=== PATIENT | male | born 1960 | race Caucasian/White ===

== ENCOUNTER 2022-02-06 18:55 | Emergency (ER) | payer OTHER, SELFPAY ==
[2022-02-06 19:12] VITALS: BP 154/101; PULSE 81; RESP 16; TEMP 36.6; O2SAT 98; BMI 27.3
--- NOTE | 2022-02-06 19:51 | CRLHL7_ITS ---
For Patients: As a result of the Cures Act, medical imaging exams and procedure reports are released immediately into your electronic medical record. You may view this report before your referring provider. If you have questions, please contact your health care provider. Indication: Post cortisone shot. Technique: Left ankle, 3 views. Comparison: None. Findings: Bones: Alignment is normal. No fractures or bone lesions. Joint spaces: Unremarkable. Soft tissues: Unremarkable. Impression: No sign of acute injury. Dictated by Dede Rosen MD @ 02/06/2022 8:31:10 PM (Electronically Signed)
--- NOTE | 2022-02-06 20:20 | ED_ITS ---
HPI - General Adult General Time Seen by Provider: 20:20 Date Seen: 02/06/22 Chief complaint: Extremity Pain/Injury, Lower Stated complaint: Post Shot Pain Unable to Use Ankle Time Seen by Provider: 02/06/22 19:36 Source: patient History of Present Illness HPI narrative: Luis M is a 61-year-old male presents emerged department with with left ankle pain. Patient states that he doctors out [place] or his primary care provider, he has had ongoing left ankle pain for about a month no known trauma or injury, he was referred to see Podiatry here in clinic with Regina. One hundred thirty this afternoon he got a Kenalog 10 mg injection in his left ankle for synovitis No complications, patient felt well after this and went to work, around 11/22/2029 this evening he had increased pain to the area of the injection as well as the other side and back of his ankle, pain is 10/10, no surrounding swelling or redness. He is able to move his ankle. Denies any fevers, chills, numbness or tingling of the left foot. He is otherwise doing well. He did not take anything for the pain. Related Data Home Medications Medication Instructions Recorded Confirmed aspirin 81 mg capsule 81 mg PO DAILY 02/06/22 02/06/22 atorvastatin 20 mg tablet mg 02/06/22 omeprazole magnesium PO 02/06/22 Allergies Allergy/AdvReac Type Severity Reaction Status Date / Time Penicillins Allergy Verified 02/06/22 19:16 Review of Systems Status of ROS: Reports: 10 or more systems reviewed and unremarkable except as noted in History and below [facility] Medical History (Updated 02/06/22 @ 21:06 by Ned Garcia MD) GERD (gastroesophageal reflux disease) ANDREW (obstructive sleep apnea) Polycystic kidney disease Tubular adenoma of colon Surgical History (Updated 02/06/22 @ 19:41 by Elly Cedeno RN) H/O nasal septoplasty H/O rotator cuff surgery History of ankle surgery Social History Smoking Status: Never smoker Do you use any of these nicotine containing products: None How often do you have a drink containing alcohol: monthly or less How often do you have six or more drinks on one occasion: Never AUDIT-C Alcohol total score: 1 Non-prescribed substance use: denies use Exam Const: Vital Signs, click to edit/add: Vital Signs - 24 hr 02/06/22 19:12 Temperature 97.9 F Pulse Rate [Left P ulse Oximeter] 81 Respiratory Rate 16 Blood Pressure [Le ft Upper Arm] 154/101 H Pulse Oximetry 98 Common normals: no apparent distress and oriented x3 Eye: Common normals: PERRL, EOMs intact bilaterally and conjunctivae normal Conjunctiva: conjunctiva(e) normal Pupil: PERRL Neck & C-Spine: Common normals: full ROM and supple Resp: Common normals: normal respiratory effort and clear to auscultation bilaterally Auscultation: clear to auscultation bilaterally Cardio: Common normals: S1 normal heart sound and S2 normal heart sound Heart sounds: S1 normal and S2 normal Extremity: Other: Left ankle: injection site, looks clean, no surrounding erythema or warmth, minimal swelling, active dorsal and plantar flexion, tender to palpation the lateral malleolus at the site of injection. CMS intact Neuro: Common normals: oriented x3 Course Course Hospital Course: 8:15 PM: Vitals are stable, for couple include IV peripheral, 15 mg IV Toradol and 4 mg IV morphine for pain, will obtain XR left ankle three views, basic labs CBC, CRP. To reach out to the field traffic investigator that performed the injection. No signs of infection. Differential diagnosis includes but not limited to cellulitis, septic arthritis, abscess, arthritis, synovitis, bursitis, sprain, fracture as well as other etiologies Reevaluation(s) Reevaluation #1: Spoke with Podiatry, recommendations were ice, elevate, anti-inflammatories with NSAIDs over the next few days, comment to have a local reaction to Kenalog. Should get better over time, follow-up as needed with primary care provider over the next 7-10 days. Time: 20:36 Reevaluation #2: Patient was updated on his imaging results, no acute findings, CBC did show leukocytosis, elevated neutrophil percentage and neutrophil number, CRP was nega tive which was reassuring, discussed watching at this time, we will get a short course of Milmay 5-325 mg be taken in addition to his NSAIDs for breakthrough pain, RICE instructions given. Reasons to return were given. Time: 20:59 Vital Signs Vital signs: Initial Vital Signs Temperature 97.9 F 02/06/22 19:12 Temperature Source Temporal Artery Scan 02/06/22 19:12 Pulse Rate 81 07/20/22 19:12 Pulse Rhythm 02/06/22 19:12 Respiratory Rate 16 02/06/22 19:12 Blood Pressure 154/101 H 02/06/22 19:12 Blood Pressure Mean 118 02/06/22 19:12 Blood Pressure Position Sitting 02/06/22 19:12 Pulse Oximetry 98 02/06/22 19:12 Oxygen Delivery Method 02/06/22 19:12 Vital Signs Temperature 97.9 F 02/06/22 19:12 Pulse Rate 81 02/06/22 19:12 Respiratory Rate 16 02/06/22 19:12 Blood Pressure 154/101 H 02/06/22 19:12 Pulse Oximetry 98 02/06/22 19:12 Temperature 97.9 F 02/06/22 19:12 Pulse Rate 81 02/06/22 19:12 Respiratory Rate 16 02/06/22 19:12 Blood Pressure 154/101 H 02/06/22 19:12 Pulse Oximetry 98 02/06/22 19:12 Medical Decision Making Lab Data Labs: Lab Results 02/06/22 02/06/22 Range/Units 20:23 20:23 WBC 12.00 H (4.50-11.00) K/uL RBC 5.53 (4.30-5.90) m/uL Hgb 15.7 (13.5-17.5) gm/dL Hct 44.9 (37.0-53.0) % MCV 81 (80-100) fL MCH 28 (26-34) pg MCHC 35 (32-36) gm/dL RDW Coeff of Macy 13.0 (11.5-15.5) % Plt Count 216 (140-440) K/uL Neut % (Auto) 90.4 H (42.0-72.0) % Lymph % (Auto) 6.3 L (20-44) % [place] % (Auto) 2.8 (0.0-11.0) % Eos % (Auto) 0.3 (0.0-7.0) % Baso % (Auto) 0.1 (0.0-3.0) % Neut # (Auto) 10.80 H (1.7-7.0) K/uL Lymph # (Auto) 0.80 L (0.90-2.90) K/uL [place] # (Auto) 0.30 (0.00-0.90) K/UL Eos # (Auto) 0.00 (0.00-0.50) K/uL Baso # (Auto) 0.00 (0.00-0.30) K/uL Abs Immat Gran (auto) 0.01 (0.00-0.30) K/uL C-Reactive Protein < 0.5 L (0.5-1.0) mg/dL Discharge Plan Discharge Clinical Impression: Ankle pain, left Patient Disposition: Home, Self-Care Condition: Improved Instructions: R.I.C.E. Treatment (ED) Additional Instructions: To take 400 -600 mg of Ibuprofen or Motrin every 4-6 hours short term for pain, ice to the area, 20-30 minutes three times daily, elevated if swelling. To follow up with your primary care provider in the next 3-5 days if needed, return if worsening symptoms. Activity Level: Activity as Tolerated Prescriptions: No Action atorvastatin 20 mg tablet 0RF aspirin 81 mg capsule 81 mg PO DAILY 0RF omeprazole magnesium [Acid Entry Level Accountant (omeprazole)] PO 0RF Follow Up/Referrals: Johnnie López MD [Primary Care Provider] - Stand Alone Forms: [employer] Info Instructions
[2022-02-06 20:31] LABS: Basophils Percent Auto 0.1 % (0.0-3.0); Eosinophils Percent Auto 0.3 % (0.0-7.0); Hematocrit 44.9 % (37.0-53.0); Hemoglobin* 15.7 gm/dL (13.5-17.5); Immature Granulocytes Abs Auto 0.01 K/uL (0.00-0.30); Lymphocytes Percent Auto 6.3 % (20-44); Mean Corpuscular HGB Conc 35 gm/dL (32-36); Mean Corpuscular Hemoglobin 28 pg (26-34); Mean Corpuscular Volume 81 fL (80-100); Monocytes Percent Auto 2.8 % (0.0-11.0); Neutrophils Percent Auto 90.4 % (42.0-72.0); Platelet Count* 216 K/uL (140-440); Red Blood Count 5.53 m/uL (4.30-5.90)
[2022-02-06 20:32] LABS: Slide Review Reflex No
[2022-02-06] MEDS: MORPHINE 4 MG/ML INJ IVP (20:32)
[2022-02-06] MEDS: KETOROLAC 15 MG/ML inj IVP (20:39)
[2022-02-06 21:10] LABS: C Reactive Protein* < 0.5 mg/dL (0.5-1.0)
[2022-02-06 21:40] VITALS: BP 145/89; PULSE 79; RESP 16; TEMP 36.6; O2SAT 98
== END 2022-02-06 21:41 | disposition home or self-care (01) ==
PROVIDERS: Emergency Provider Student in an Organized Health Care Education/Training Program; PCP Family Medicine
DX: M25.572 Pain in left ankle and joints of left foot (principal); T38.0X5A Adverse effect of glucocorticoids and synthetic analogues, initial encounter
CPT/HCPCS: 36415; 73610; 85025; 86140; 96374; 96375; 99283; 99284; J1885; J2270

== ENCOUNTER 2023-08-28 09:14 | Outpatient (CLI) | payer OTHER, SELFPAY ==
--- NOTE | 2023-08-28 11:06 | W.ANESCHARGE ---
Anesthesia Charges Start Date/Time Anesthesia Start Date: 08/28/23 Anesthesia Start Time: 10:24 Stop Date/Time Anesthesia Stop Date: 08/28/23 Anesthesia Stop Time: 11:02
== END 2023-08-28 09:15 | disposition home or self-care (01) ==
PROVIDERS: PCP Nurse Practitioner Family; Visit Provider Surgery
DX: Z12.11 Encounter for screening for malignant neoplasm of colon (principal); K63.5 Polyp of colon; K57.30 Diverticulosis of large intestine without perforation or abscess without bleeding; K64.9 Unspecified hemorrhoids; K44.9 Diaphragmatic hernia without obstruction or gangrene; K31.7 Polyp of stomach and duodenum; R19.8 Other specified symptoms and signs involving the digestive system and abdomen
CPT/HCPCS: 00813; 43239; 45380; 45385; 88305; J2704; J3490

== ENCOUNTER 2024-03-05 09:06 | Outpatient (CLI) | payer OTHER, SELFPAY ==
--- OUTSIDE RECORDS SUMMARY | 2024-03-05 09:08 | XMS_ITS | Encounter Summary ---
Author Organization [facility] er Address [address] [place] [address] Care Team Providers Care Airplane Rental Clerk Name Role Phone Dante Howe MD Primary Care Provider [phone] Reason for Visit * Reason Comments Med Refill Encounter Details Date Type Department Care Team (Late st Contact Info) Description 04/28/2019 Refill [place] [address] [place] [address] Tabitha López MD [address] [facility] [address] [place] [address] Gastroesophageal reflux disease, esophagitis presence not specified Social History Tobacco Use Types Packs/Day Years Used Date Smoking Tobacco: Never Smokeless Tobacco: Former Alcohol Use Standard Drinks/Week Comments Yes 5 (1 standard drink = 0.6 oz pur e alcohol) PHQ-2 Answer Date Recorded PHQ-2 Score 0 11/18/2018 Sex and Gender Information Value Date Recorded Sex Assigned at Not on file Gender Identity Not on file Sexual Orientation Not on file documented as of this encounter Miscellaneous Notes * Telephone Encounter - Reina Spence MA - 04/30/2019 11:13 AM CDT Requested Prescriptions Pending Prescriptions Disp Refills ??? omeprazole (PriLOSEC) [address] capsule [Pharmacy Med Name: OMEPRAZOLE 20MG CPDR] 90 capsule 3 Sig: TAKE ONE CAPSULE BY MOUTH EVERY DAY Date/Time Signed: 04/26/2019 13:18 E-Prescribing Status: Receipt confirmed by pharmacy (04/26/2019 ??1:18 PM CDT) documented in this encounter Plan of Treatment Not on file documented as of this encounter Visit Diagnoses Diagnosis Gastroesophageal reflux disease, esophagitis presence not specified documented in this encounter Care Teams Airplane Rental Clerk Relationship Specialty Start Date End Date Dante Howe MD [address] [place] [address] PCP - General 05/08/23 documented as of this encounter
--- OUTSIDE RECORDS SUMMARY | 2024-03-05 09:08 | XMS_ITS | Encounter Summary ---
Author Organization [facility] er Address [address] [place] [address] Care Team Providers Care Smooth Plater Name Role Phone Dante Howe MD Primary Care Provider [phone] Reason for Visit * Reason Comments Med Refill Encounter Details Date Type Department Care Team (Late st Contact Info) Description 12/22/2023 Refill [place] [address] [place] [address] Dante Howe MD [address] [facility] [address] [place] [address] Gastroesophageal reflux disease without esophagitis Social History Tobacco Use Types Packs/Day Years Used Date Smoking Tobacco: Never Smokeless Tobacco: Former Alcohol Use Standard Drinks/Week Comments Yes 5 (1 standard drink = 0.6 oz pur e alcohol) PHQ-2 Answer Date Recorded PHQ-9 Total Score 0 01/23/2023 Sex and Gender Information Value Date Recorded Sex Assigned at Not on file Gender Identity Not on file Sexual Orientation Not on file documented as of this encounter Miscellaneous Notes * Telephone Encounter - Radha Vela - 12/24/2023 8:45 AM CDT LMTCB to schedule annual. Prior Dr. López pt; informed of Dr. Howe or Raisa. * Telephone Encounter - Yenni Villalobos RN - 12/23/2023 7:07 PM CDT Patient is due for (Annual) appointment. PSR: Please contact patient to assist with scheduling. Upcoming appointment with provider: Visit date not found Last visit in provider department: 01/23/2023 Last visit requested medication was discussed: 01/30/2022 other provider Last Rx: Requested Prescriptions Pending Prescriptions Disp Refills omeprazole (PriLOSEC) [address] capsule [Pharmacy Med Name: OMEPRAZOLE 20MG CPDR] 90 capsule 0 Sig: TAKE ONE CAPSULE BY MOUTH EVERY DAY, DO NOT CRUSH OR CHEW` Labs: Vitals: BP Readings from Last 2 Encounters: 01/23/23 (!) 143/92 06/10/22 136/86 Last Controlled Substance Agreement (CSA): Last Random Urine Drug Screen (RUDS): documented in this encounter Plan of Treatment Not on file documented as of this encounter Visit Diagnoses Diagnosis Gastroesophageal reflux disease without esophagitis Esophageal reflux documented in this encounter Care Teams Smooth Plater Relationship Specialty Start Date End Date Dante Howe MD [address] [facility] [address] [place] [address] PCP - General 05/08/23 documented as of this encounter
--- OUTSIDE RECORDS SUMMARY | 2024-03-05 09:08 | XMS_ITS | Clinical Summary ---
Author Organization [facility] er Address [address] [place] [address] Care Team Providers Care Winemaker Name Role Phone Dante Howe MD Primary Care Provider [phone] Allergies Active Allergy Reactions Criticality Noted Date Comments Penicillin G Medications Medication Sig Dispensed Refills Start Date End Date Status sildenafil (VIAGRA) 50 MG tablet Take 1 tablet (50 mg total) by mouth if needed 12/02/2018 Active aspirin 81 MG EC tablet Take 1 tablet (81 mg total) by mouth 1 (one) time each day Active tamsulosin (FLOMAX) 0.4 MG 24 hr capsuleIndications:B enign prostatic hyperplasia with urinary frequency Take 1 capsule (0.4 mg total) by mouth 1 (one) time each day 90 capsule 1 08/08/2020 Active Additional Information Patient not taking.Reported on 06/10/2022 atorvastatin (LIPITOR) 20 MG tabletIndications:Donald rderline hyperlipidemia TAKE ONE TABLET BY MOUTH EVERY DAY 90 tablet 3 03/14/2023 Active omeprazole (PriLOSEC) [address] capsuleIndications:G astroesophageal reflux disease without esophagitis TAKE ONE CAPSULE BY MOUTH EVERY DAY, DO NOT CRUSH OR CHEW` 90 capsule 12/24/2023 Active Active Problems Problem Noted Date Diagnosed Date Gastroesophageal reflux disease without esophagi tis 08/27/2021 Mixed hyperlipidemia 08/27/2021 Benign prostatic hyperplasia with urinary freque ncy 08/27/2021 Other male erectile dysfunction 08/27/2021 Decreased hearing of both ears 08/27/2021 Family history of ischemic h eart disease and other diseases of the circulatory system 05/06/2017 Encounters Date Type Department Care Team Description 12/22/2023 Refill [facility] [address] [address] Dante Howe MD Gastroesophageal reflux disease without esophagitis from Last 3 Months Immunizations Name Administration Dates Next Due Flu Vaccine High Dose 65yrs and Older IM 017,04/25/2014 Influenza (IM) Preservative Free 06/22/2013,05/22 Influenza 6mo-64yrs Quad Preservative Free IM ,04/13/2014 Influenza Split 05/20/2017,04/25/2014 Influenza, Unspecified 05/20/2017,04/25/2014 Td 03/21/2000 Tdap 01/30/2022,04/12/2011 Family History Medical History Relation Comments Stroke Father Parkinsonism Mother Relation Status Comments Brother 1 Alive Brother 2 Alive Brother 3 Alive Daughter 1 Alive Daughter 2 Alive Daughter 3 Alive Father Alive Mother Alive Sister 1 Alive Sister 2 Alive Sister 3 Alive Social History Tobacco Use Types Packs/Day Years Used Date Smoking Tobacco: Never Smokeless Tobacco: Former Alcohol Use Standard Drinks/Week Comments Yes 5 (1 standard drink = 0.6 oz pur e alcohol) PHQ-2 Answer Date Recorded PHQ-9 Total Score 0 01/23/2023 Sex and Gender Information Value Date Recorded Sex Assigned at Not on file Gender Identity Not on file Sexual Orientation Not on file Last Filed Vital Signs Vital Sign Reading Time Taken Comments Blood Pressure 143/92 01/23/2023 3:54 PM CDT Pulse 63 01/23/2023 3:54 PM CDT Temperature 36.6 ??C (97.9 ??F) 01/23/2023 3:54 PM CD T Respiratory Rate 16 01/23/2023 3:54 PM CDT Oxygen Saturation 96% 01/23/2023 3:54 PM CDT Inhaled Oxygen Concentration - - Weight 88.2 kg (194 lb 8 oz) 01/23/2023 3:54 PM CDT Height 178.5 cm (5' 10.28) 12/13/2020 11:31 AM CDT boots on Body Mass Index 27.69 12/13/2020 11:31 AM CDT Plan of Treatment Health Maintenance Due Date Last Done Comments CT Colonography 1962 FIT-DNA 1962 Sigmoidoscopy 1962 iFOBT 1962 Zoster Vaccines (1 of 2) 2012 COVID-19 Vaccine (1 - 24 season) 2023 Influenza Vaccine (#1) 2024 7, 05/20/2017, 05/20/2017, Additional history exists Colonoscopy 07/03/2024 07/03/2019 Colorectal Cancer Screening 07/03/2024 DTaP,Tdap,and Td Vaccines (3 - Td or Tdap) 01/31/2032 01/30/2022, 04/12/2011, 03/21/2000 HPV Vaccines Aged Out No longer eligi ble based on patient's age to complete this topic Pneumococcal Vaccine: Pediatrics (0 to 5 Years) and At-Risk Patients (6 to 64 Years) Aged Out No longer eligible based on patient's age to complete this topic Care Teams Winemaker Relationship Specialty Start Date End Date Dante Howe MD [address] [place] [address] PCP - General 05/08/23
--- OUTSIDE RECORDS SUMMARY | 2024-03-05 09:08 | XMS_ITS | Encounter Summary ---
Author Organization [facility] er Address [address] [place] [address] Care Team Providers Care Family Preservation Caseworker Name Role Phone Dante Howe MD Primary Care Provider [phone] Reason for Visit * Reason Comments Med Refill Encounter Details Date Type Department Care Team (Late st Contact Info) Description 03/10/2023 Refill [place] [address] [place] [address] Tabitha López MD [address] [place] [address] Borderline hyperlipidemia Social History Tobacco Use Types Packs/Day Years [...] encounter Miscellaneous Notes * Telephone Encounter - Donna Keller - 03/14/2023 9:28 AM CDT Patient is not wanting to have this removed at this time as it seems to be smaller. He will call back in a few weeks if anything changes and he wants to remove it. * Telephone Encounter - Sandra Burr RN - 03/14/2023 8:45 AM CDT LMTC. * Telephone Encounter - Reina Spence MA - 03/14/2023 6:58 AM CDT Patient is due for (annual) appointment. PSR: Please contact patient to assist with scheduling. Upcoming appointment with provider: Visit date not found Last visit in provider department: 06/10/2022 Last visit requested medication was discussed: 01/30/2022 Last Rx: 01/30/2022 # 90 tablet, 3 refill Requested Prescriptions Pending Prescriptions Disp Refills atorvastatin (LIPITOR) 20 MG tablet [Pharmacy Med Name: ATORVASTATIN CALCIUM 20MG TABS] 90 tablet 3 Sig: TAKE ONE TABLET BY MOUTH EVERY DAY Labs:07/07/2019 Lipid Vitals: BP Readings from Last 2 Encounters: 01/23/23 (!) 143/92 06/10/22 136/86 Last Controlled Substance Agreement (CSA): Last Random Urine Drug Screen (RUDS): documented in this encounter Plan of Treatment Not on file documented as of this encounter Visit Diagnoses Diagnosis Borderline hyperlipidemia documented in this encounter Care Teams Family Preservation Caseworker Relationship Specialty Start Date End Date Dante Howe MD [address] [place] [address] PCP - General 05/08/23 documented as of this encounter
--- OUTSIDE RECORDS SUMMARY | 2024-03-05 09:08 | XMS_ITS | Clinical Summary ---
Author Organization [facility] Address [place], [place] [address] Care Team Providers Care Enlisted Advisor Name Role Phone Chelsea Hdz NP Primary Care Provider Angelica vailable Allergies Active Allergy Reactions Criticality Noted Date Comments Penicillins *Unknown - Childhood Rxn 06/18/2011 Medications Medication Sig Dispensed Refills Start Date End Date Status atorvastatin (LIPITOR) 20 mg tablet Take 1 tablet by mouth once daily. 10/20/2018 Active omeprazole (PRILOSEC) 20 mg Delayed-Release capsule Take 1 Cap by mouth once daily before a meal. 03/30/2018 Active tamsulosin (FLOMAX) 0.4 mg capsule Take 1 capsule by mouth once daily after a meal. 0 12/02/2018 Active sildenafil citrate (VIAGRA) 50 mg tablet Take 1 tablet by mouth once daily if needed for Erectile Dysfunction. Take 30min to 4 hours before sexual activity. Max 100mg/24hr 0 12/02/2018 Active aspirin (ECOTRIN) 81 mg enteric coated tablet Take 81 mg by mouth. Active Social History Tobacco Use Types Packs/Day Years Used Date Smoking Tobacco: Never Smokeless Tobacco: Former Quit: 06/18/2008 Tobacco Cessation:Counseling Given: Yes Alcohol Use Standard Drinks/Week Comments Not Asked 0 (1 standard drink = 0.6 oz pur e alcohol) Sex and Gender Information Value Date Recorded Sex Assigned at Not on file Gender Identity Not on file Sexual Orientation Not on file Obstetrics History Last Filed Vital Signs Vital Sign Reading Time Taken Comments Blood Pressure 151/92 02/06/2022 12:59 PM CDT Pulse 69 02/06/2022 12:59 PM CDT Temperature 36.6 ??C (97.9 ??F) 05/12/2019 9:41 AM CD T Respiratory Rate 18 09/24/2011 3:00 PM GLUING MACHINE OPERATOR Oxygen Saturation 94% 02/06/2022 12:59 PM CDT Inhaled Oxygen Concentration - - Weight 84.6 kg (186 lb 6.4 oz) 02/06/2022 12:59 PM CDT Height - - Body Mass Index - - Plan of Treatment Health Maintenance Due Date Last Done Comments Tdap 1973 Depression screening for age 12+ 1974 HIV for age 15-65 1977 BMI (ht and wt on same day) for age 18+ 1980 Hepatitis C screening for ag e 18-79 1980 Tetanus booster 1982 Colonoscopy through age 75 2007 Lipids for age 45-75 2007 Zoster (shingles) series for age 50+ (1 of 2) 2012 COVID-19 vaccine series (2022-24 season) 2023 Influenza for age 50-64 03/21/2024 Pneumococcal series for age 6-64 Aged Out No longer eligible based on patient's age to complete this topic Care Teams Enlisted Advisor Relationship Specialty Start Date End Date Chelsea Hdz NP [address] [place] [address] PCP - General Emergency Medicine 03/31/19
--- NOTE | 2024-03-05 09:15 | MR_ITS ---
[address] [address] Phone:?[phone] Fax:?[phone] Referring Physician Information: Jorge Mcgraw M.D. [id number] [facility] [address] Phone:?[phone] Fax:?[phone] Patient:?Luis M Nagel D.O.B:?1960 Sex:?Male Phone:?[phone] [facility] MRN:?[id number] Exam Date:?03/05/2024 EXAM: MRI OF THE LEFT KNEE CLINICAL INFORMATION: The patient is a 63-year-old with left knee pain. Evaluate medial compartment osteoarthritis. Evaluate for medial meniscal tear. PRIOR SURGERY: None reported. COMPARISON STUDIES: Comparison is made to the prior MRI examination dated 05/16/2016. TECHNICAL INFORMATION: Imaging was performed on a high-field, 1.5 Rosalva MR scanner. Coronal proton-density and coronal STIR imaging of the left knee was performed in addition to sagittal proton-density and fat-suppressed proton- density imaging. Axial proton-density and fat-suppressed T2 imaging was produced. FINDINGS: Articular/Extraarticular collections: Effusion: Moderate. Popliteal cyst: Minimal. Loose bodies: No well-defined intra-articular loose bodies are present. Subcutaneous and extraarticular soft tissues: Within normal limits. Osseous structures: There are broad-based areas of cortical irregularity and subcortical edema along the central and medial articular surfaces of the medial femoral condyle and medial tibial plateau seen on coronal series 8 image 20 and on sagittal series 5 images 7 and 8. The findings are most in keeping with reactive bony changes related to the meniscal tearing and chondral thinning discussed below. Mild elements of contusion or stress change may also be present. No other bony abnormalities about the knee are seen. Ligamentous structures: ACL: Intact and normal in appearance. PCL: Intact and normal in appearance. MCL: Intact and normal in appearance. LCL: Intact and normal in appearance. Posterolateral corner: Intact and normal in appearance. Posteromedial corner: No posteromedial corner soft tissue injury. Semimembranosus and pes anserine tendons demonstrate no tendinopathy or associated bursitis. Extensor mechanism/Patellar retinacular structures: Patellar tendon: Intact, without tendinopathy. Quadriceps tendon: Intact, without tendinopathy. Retinacula: The medial and lateral retinacula are intact. The medial patellofemoral ligament is intact. Medial compartment: Medial meniscus: The medial meniscus is abnormal in appearance. There is apical free edge and inferior surface tearing of the posterior horn of the medial meniscus with horizontal tearing extending to the meniscal attachment, noted to best advantage on sagittal series 6 image 9. The area of medial meniscal tearing measures approximately 22 mm in mediolateral dimension. Additional degeneration and fraying of the middle one third of the medial meniscus is noted. The anterior horn of the medial meniscus appears intact. No parameniscal cyst formation is identified. Medial femoral condyle: Grade III chondromalacia can be seen along the central, medial, and anterior weightbearing surfaces of the medial femoral condyle on coronal series 7 image 20 and on sagittal series 6 image 10. The area of chondromalacia and chondral loss measures 23 mm in anteroposterior dimension and 20 mm in mediolateral dimension. Underlying bony changes are seen. Medial tibial plateau: Full-thickness and near full-thickness chondral loss can be seen along the central and anterior weightbearing surfaces of the medial tibial plateau on sagittal series 6 image 11 and on coronal series 7 image 15. The chondral loss measures 23 mm in anteroposterior dimension and 24 mm in mediolateral dimension. Underlying bony changes are present. Lateral compartment: Lateral meniscus: No evidence for lateral meniscal tearing is present. No evidence for parameniscal cyst formation can be seen. Lateral femoral condyle: No chondromalacia, chondral defect, or osteochondral abnormality. Lateral tibial plateau: No chondromalacia, chondral defect, or osteochondral abnormality. Patellofemoral compartment: Patella: Grade II chondromalacia can be seen involving the patellar apex and adjacent portions of the medial and lateral patellar facets on axial series 4 image 12, measuring 13 mm in greatest dimension. No full-thickness patellar chondral defects are seen. Trochlea: No chondromalacia, chondral defect, or osteochondral abnormality. Neurovascular: No definite neurovascular abnormalities are seen. CONCLUSION: 1. Tearing and degeneration of the medial meniscus as described above. No lateral meniscal tearing is seen. 2. Chondromalacia and chondral loss involving the medial joint compartment and patella as described above. 3. The cruciate and collateral ligaments appear intact. 4. Reactive edema versus mild contusion or stress changes involving the medial femoral condyle and medial tibial plateau. 5. Moderate knee joint effusion and minimal popliteal cyst. AEC Electronically signed on 03/05/2024 1:52:00 PM by Kaushal Hadley M.D.
== END 2024-03-05 09:07 | disposition home or self-care (01) ==
LOC: MRI 09:07
PROVIDERS: PCP Nurse Practitioner Family; Visit Provider Orthopaedic Surgery
DX: M25.562 Pain in left knee (principal); S83.242A Other tear of medial meniscus, current injury, left knee, initial encounter; M22.42 Chondromalacia patellae, left knee; M25.462 Effusion, left knee; M71.22 Synovial cyst of popliteal space [Baker], left knee; G89.29 Other chronic pain
CPT/HCPCS: 73721

== ENCOUNTER 2024-08-06 08:19 | Outpatient (CLI) | payer OTHER, SELFPAY | END 2024-08-06 08:20 | disposition home or self-care (01) | PROVIDERS: PCP Nurse Practitioner Family; Visit Provider Nurse Practitioner Family | DX: I10 Essential (primary) hypertension (principal); E78.5 Hyperlipidemia, unspecified; Z13.0 Encounter for screening for diseases of the blood and blood-forming organs and certain disorders involving the immune mechanism; Z12.5 Encounter for screening for malignant neoplasm of prostate | CPT/HCPCS: 80053; 80061; 85025; G0103 ==

== ENCOUNTER 2024-09-16 08:22 | Outpatient (RCR) | payer OTHER, SELFPAY ==
--- NOTE | 2024-09-16 09:28 | PT.OPEX ---
[facility] [place] Outpatient Eval [facility] Outpatient Eval Start: 09/15/24 13:41 Freq: Status: Active Protocol: Document 09/16/24 07:15 HLA (Rec: 09/16/24 09:23 HLA [id number]) E-signed By Fabiola Morrison, PT, DPT Physical Therapy Outpatient Evaluation Insurance Information Recert Due Date 12/14/24 Insurance Name [employer] Medical Diagnosis L TKA Treating Diagnosis weakness, impaired ROM, stiffness L knee Referring MD Mcgraw Subjective Preferred Name luis m Subjective Reports pain L knee limits amb , poor sleep at night. Ready for TKA. 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 stairs step to pattern for stability balance screen intact Sensation/Reflexes intact to light touch Assessment Assessment/Impression Luis M is a 64 year old male, ind amb, drives, owns a [employer]. Enjoys pickle ball, previously did basketball, rides horse and rides bike. Has been limited due to pain. Pt is now undergoing a L TKA and is here for preop teaching. Pt lives in in a q1 level home, 2 steps no railing. L knee strength is good, some varus, AROM 5-105 flex with prepatella edema present. Pt was instructed in TKA ex program (quad sets, ham sets, ankle pumps, heel slides, SAQ, SLR, seated knee flex/ext and hamstring stretches) per protocol to be practiced pre- operatively and for improved learning post-operatively. Pt was instructed in hospital post-op progression in PT, safety, fall prevention. Pt was instructed in positioning in chair, use of ice/polar care, bed, transfer safety, gt safety with walker, stairs, car transfers and outpatient therapy progression. Primary Functional Limitations weakness, pain L knee, impaired ROM, impaired amb Plan of Care Rehabilitation Potential Excellent Physical Therapy Goals 1. Within this session: Pt will verbalize understanding of pre-op/post-op safety, mobility and exercises with home program issued and pt returning for ongoing therapy after TKA replacement. Coordination/Communication With Referral Source,Patient Caregiver Treatment Plan/Direct Interventions Gait Training,Manual Therapy, Neuromuscular Re-ed, Therapeutic Exercises Patient Will Be Discharged From Therapy Completion of LTG(s),Skills Plateau,Independent w/HEP, Independently Progressing Evaluation Billing Untimed Code Treatment Minutes 12 PT Eval No Charge No Complexity Low Certification Information Initial Certification Date 09/16/24 Ending Certification Date 12/14/24 Provider Signature Required Yes Provider Signature Shows Agreement With POC & Medical Necessity Physician NPI Number Write NPI# Here Physician Comment/Change : Physician Signature & Date Requested Please Sign/Date Here
== END 2024-09-16 11:05 | disposition home or self-care (01) ==
PROVIDERS: PCP Nurse Practitioner Family; Visit Provider Orthopaedic Surgery
DX: M17.12 Unilateral primary osteoarthritis, left knee (principal); Z96.652 Presence of left artificial knee joint; R53.1 Weakness; M25.662 Stiffness of left knee, not elsewhere classified; Z51.89 Encounter for other specified aftercare
CPT/HCPCS: 97110; 97161

== ENCOUNTER 2024-09-29 13:27 | Inpatient (IN) | payer OTHER, SELFPAY ==
[2024-09-28] VITALS (24 sets, daily range): BP systolic 71–144; BP diastolic 59–95; PULSE 49–87; RESP 12–18; TEMP 17.2–36.6; O2SAT 94–99; BMI 29.3
[2024-09-28] MEDS: LACTATED RINGERS 1000 ML 1,000 ML 100 ML IV (10:10)
[2024-09-28] MEDS: SODIUM CHLORIDE 0.9 % (FLUSH) 10 ML SYRINGE IVF (10:10)
[2024-09-28] MEDS: ACETAMINOPHEN 500 MG TABLET 1000 MG PO ×2 (10:15→19:08)
[2024-09-28] MEDS: OXYCODONE (CR) 10 MG TAB.ER.12H PO (10:15)
[2024-09-28] MEDS: MIDAZOLAM HCL 1 MG/ML inj IVP (10:53)
[2024-09-28] MEDS: fentaNYL 100 MCG/2 ML inj IVP (10:53)
--- NOTE | 2024-09-28 10:53 | SUR.PREOP ---
TIME?OUT:?1052 PT/RN/MDA?VERIFICATION?OF?SURGICAL?SITE,?PROCEDURE,?AND?CONSENT OBTAINED?PRIOR?TO?INVASIVE?PROCEDURE.
--- NOTE | 2024-09-28 10:56 | SUR.OPER ---
PATIENT QUESTIONS ANSWERED SATISFACTORILY PREOPERATIVELY.? PATIENT BROUGHT TO OR #3 PER CART AFTER ADMINISTRATION OF A BLOCK.? Patient positioned supine on OR #3 bed.? The perioperative?team supported arms bilaterally on arm boards.? Final approval of positioning by surgeon.?
[2024-09-28] MEDS: TRANEXAMIC ACID 100 MG/ML INJ 1000 MG IV (11:15)
[2024-09-28] MEDS: CEFAZOLIN 2 GM INJ IVP (11:15)
--- NOTE | 2024-09-28 11:55 | W.ANESCHARGE ---
Anesthesia Charges Start Date/Time Anesthesia Start Date: 09/28/24 Anesthesia Start Time: 11:06 Stop Date/Time Anesthesia Stop Date: 09/28/24 Anesthesia Stop Time: 13:25 Coding CPT Codes CPT Codes: ANESTH KNEE ARTHROPLASTY - 59496 ([id number]) P2 - PATIENT W/MILD SYST DISEASE, QK - MERCHANDISE PRESENTATION MANAGER 2-4 CNCRNT ANES PROC, QX - MUSIC THERAPY TEACHER SVC W/ MD MED DIRECTION
--- NOTE | 2024-09-28 11:56 | W.PM.NB ---
Nerve Block Nerve Block Time Seen by Provider: 10:53 Date Seen: 09/28/24 Type of block requested by surgeon for post-operative analgesia: adductor canal Side: left Time out performed: Yes Verification of patient name: Yes Verification of date of : Yes Site marking: site marked Name of person performing procedure: Dixon Continuous monitoring Was continuous monitoring of O2 sat, B/P, cardiac specialist, recorded every 15 minutes?: Yes Procedure Checklist: sterile prep, needles and gloves Ultrasound guided. Images saved: Yes Medications given in 5ml increments after negative aspiration: Marcaine %: 0.25 mL: 15 Needle gauge: 20 Precedex (mcg): 25 Patient tolerated procedure well: Yes Block Charges Block Charge (with Pro Fee): Femoral Nerve Use of Ultrasound Machine for Block: Yes- US Guidance/pain block
--- NOTE | 2024-09-28 11:56 | W.PM.NB ---
Nerve Block Nerve Block Time Seen by Provider: 10:53 Date Seen: 09/28/24 Type of block requested by surgeon for post-operative analgesia: geniculars Side: left Time out performed: Yes Verification of patient name: Yes Verification of date of : Yes Site marking: site marked Name of person performing procedure: Dixon Continuous monitoring Was continuous monitoring of O2 sat, B/P, monitor worker, recorded every 15 minutes?: Yes Procedure Checklist: sterile prep, needles and gloves Ultrasound guided. Images saved: Yes Medications given in 5ml increments after negative aspiration: Marcaine %: 0.25 mL: 9 Needle gauge: 25 Patient tolerated procedure well: Yes Block Charges Block Charge (with Pro Fee): Genicular Nerve Block
--- NOTE | 2024-09-28 12:38 | CRLHL7_ITS ---
For Patients: As a result of the Cures Act, medical imaging exams and procedure reports are released immediately into your electronic medical record. You may view this report before your referring provider. If you have questions, please contact your health care provider. Indication: Postop Technique: Two views left knee Findings/Impression: Hardware from a left total knee arthroplasty is in satisfactory position. Bone alignment is normal. No sign of acute fracture. Postop changes are within normal limits. Dictated by Kev Valencia MD @ 09/29/2024 9:25:58 AM (Electronically Signed)
--- NOTE | 2024-09-28 12:47 | PM.ORPRC ---
Procedure Note Date of procedure: 09/28/24 Procedure: PREOPERATIVE DIAGNOSIS: Left knee osteoarthritis POSTOPERATIVE DIAGNOSIS: Left knee osteoarthritis NAME OF OPERATION: Left total knee arthroplasty SURGEON: Jorge Mcgraw MD OPERATIONAL ASSISTANT: Marisol Ruiz PA-C ANESTHESIA: Spinal ESTIMATED BLOOD LOSS: 0 mL COMPLICATIONS: None SPECIMENS: None DRAINS: None PREOPERATIVE ANTIBIOTICS: Ancef 2 grams IMPLANTS: 1. J&J Attune # 8 posterior stabilized femur 2. # 8 fixed-bearing tibia 3. # 8 posterior stabilized, 5 mm fixed-bearing polyethylene 4. 41 patella INDICATIONS: The patient is a 64-year-old with a longstanding history of severe, unrelenting left knee pain secondary to end-stage (grade IV) left knee osteoarthritis. Despite appropriate nonoperative management, including activity modification, anti-inflammatories, [id number] pain medication, bracing, physical therapy, and injections they continue to have pain and disability. Operative intervention was offered. The risks, benefits and expected outcomes were discussed in detail. These included but were not limited to: Infection, bleeding, injury to blood vessel or nerve, venous thromboembolism. All questions were answered to their satisfaction. Use of an seed analysis laboratory assistant was necessary throughout the case for patient positioning and safety, soft tissue retraction, and closure. PROCEDURE: Spinal anesthesia was administered. The patient was placed supine on the operating table. The seed analysis laboratory assistant made sure the patient was positioned appropriately. The lower extremity was prepped and draped in the usual sterile fashion. The limb was exsanguinated with the Marcus bandage. The pneumatic tourniquet was inflated to 300 mmHg. A standard anterior incision was made with the knee in flexion. Subcutaneous dissection was sharply taken through fascial layer #1. Full-thickness medial and lateral flaps were elevated. The seed analysis laboratory assistant retracted the soft tissues and protected them throughout the case. A standard subvastus approach was made. The patella was subluxed. The infrapatellar fat pad was preserved. The menisci and cruciate ligaments were sharply d?brided. Marginal osteophytes were d?brided with the rongeur. The drill was used to penetrate the femoral canal. The canal was aspirated and irrigated with pulse lavage. The intramedullary femoral guide was placed for a 5-degree valgus cut, removing 10 mm off the distal femur. The saw was used to make the cut. Whitesides line and the trans epicondylar axis were marked. The femoral sizing guide was pinned onto the distal femur. Three degrees of external rotation nicely parallels the transepicondylar axis. Pins were placed for posterior referencing. The four-in-one cutting guide was pinned onto the distal femur. The anterior, posterior, and chamfer cuts were made. The seed analysis laboratory assistant protected the collateral ligaments. The box cutting guide was pinned. The box cuts were made. The boxed trial was placed and was an excellent fit. Drill holes for the lugs were made. Attention was then turned to the proximal tibia. The extramedullary tibial guide was placed for a neutral varus/valgus cut with 5 degrees of posterior slope, removing 2 mm based off the medial tibial surface. The seed analysis laboratory assistant protected the collateral ligaments and the neurovascular bundle. The saw was used to make the cut. Trial components were placed. The knee was nicely balanced in both flexion and extension. The trial components were removed. The tray was placed in appropriate rotation, parallel to our tibial cutting pins. It was pinned by the seed analysis laboratory assistant and the drill and the punch were used. The tray was removed. The punch was used again. We placed a bone plug in the femoral canal. Attention was then turned to the patella. Habematolel patellar thickness was 26 mm. The lobster claw resection guide was used with the 9.5 mm jennifer. The saw was used to make the cut. Drill holes were made by the seed analysis laboratory assistant. The trial was placed and was an excellent fit. Cancellous surfaces were irrigated with pulse lavage and thoroughly dried by the seed analysis laboratory assistant. We cemented the tibial component, then the femoral component. We impacted the 5 mm polyethylene onto the tibial tray. The knee was brought into full extension. We then cemented the patellar component. Excessive cement was removed. The cement was allowed to harden. The knee was taken through a range of motion and was found to be nicely balanced in both flexion and extension. The patella tracks centrally. The seed analysis laboratory assistant did a three minute dilute Betadine solution soak. The seed analysis laboratory assistant irrigated the wound with 3 liters of normal saline via pulse lavage. The seed analysis laboratory assistant reapproximated the extensor mechanism with #1 Vicryl in an interrupted [id number] fashion. The seed analysis laboratory assistant then ran the extensor mechanism with a #1 PDO Stratafix. The seed analysis laboratory assistant closed the subcutaneous tissues with a 3-0 Stratafix and the skin with a running 3-0 Stratafix in a subcuticular fashion. Glue was used to seal the skin. The seed analysis laboratory assistant placed a dry dressing. Sponge and needle counts were correct x2. The patient tolerated the procedure well. There were no apparent complications. They were carefully transferred to the hospital bed and taken to the postanesthesia care unit in satisfactory condition. PLAN: The patient will be mobilized with physical therapy. Aspirin will be used for DVT prophylaxis. They will be discharged to home once medically appropriate.
--- NOTE | 2024-09-28 13:23 | W.ANESCHARGE ---
Anesthesia Charges Start Date/Time Anesthesia Start Date: 09/28/24 Anesthesia Start Time: 11:06 Stop Date/Time Anesthesia Stop Date: 09/28/24 Anesthesia Stop Time: 13:25 Coding CPT Codes CPT Codes: ANESTH KNEE ARTHROPLASTY - 24278 ([id number]) P2 - PATIENT W/MILD SYST DISEASE, QK - BEHAVIORAL HEALTH DIRECTOR 2-4 CNCRNT ANES PROC, QX - FILTER WASHER SVC W/ MD MED DIRECTION
[2024-09-28] MEDS: LACTATED RINGERS 1000 ML 1,000 ML 200 ML IV (13:43)
[2024-09-28] MEDS: HYDROmorphone 0.5 mg/0.5 ml inj IVP ×2 (14:42→17:12)
--- NOTE | 2024-09-28 15:31 | PM.IMCN1 ---
Date of Consult Patient: [facility] Patient Consult date: 09/28/24 Requesting Physician: Orthopedics Primary Care Provider: Chelsea Hdz APRN, TROY Consult Narrative Reason for consult: Medical management Narrative: Luis M Nagel is a 64 year old male past medical history significant for osteoarthritis, hypertension, hyperlipidemia, hiatal hernia, allergic rhinitis, GERD, polycystic kidney disease, ANDREW is POD#0 s/p left total knee arthroplasty, Dr. Mcgraw. There have been no perioperative complications or nursing concerns reported. Mild soft pressures, improving postoperatively. Estimated total blood loss documented as 0 ml. Updated and reviewed the active medical problems, past medical history, past surgical history, social history, allergies and medications in our electronic EMR. Postoperatively, patient reports minimal discomfort. More so the uneasy feeling of his leg being numb. Had a mild headache earlier which resolved. Denies dizziness. Denies chest pain or shortness of breath. Has tolerated water and ice chips without nausea or vomiting. Appetite is returning. Review of Systems Narrative: REVIEW OF SYSTEMS: Complete review of systems performed and negative unless otherwise stated in HPI or below. PFSH PFSH Medical History Varicella ?B01.9 - Varicella without complication (ICD-10) Surgical History History of tonsillectomy ?Z90.89 - Acquired absence of other organs (ICD-10) History of bunionectomy (05/10/19) ?Z98.890 - Other specified postprocedural states (ICD-10) History of ankle surgery ?Z98.890 - Other specified postprocedural states (ICD-10) H/O rotator cuff surgery (2013) ?Z98.890 - Other specified postprocedural states (ICD-10) H/O nasal septoplasty (07/02/11) ?Z98.890 - Other specified postprocedural states (ICD-10) Family History Father Heart disease Hx of CABG, Onset Age: 50 Stroke Kidney disease Daughter Celiac disease Paternal Grandfather Heart disease Sister Kidney disease Social History (Reviewed 09/28/24 @ 15:33 by DORCAS Barker What is your current living situation?: I presently have a place to live Problems where you live: no known problems In the past 12 months, utilities in danger of being shut off: no In past 12 months, lack of transportation kept you from medical appts, meetings, work, or getting things needed for daily living: no In the past 12 mos, have been you worried that your food would run out before you had money to buy more?: never true In the past 12 mos, the food you bought just didn't last and you didn't have money to buy more?: never true Highest level of school completed/degree received: Associate degree: occupational, technical, vocational program Smoking Status: Never smoker Do you use any of these nicotine containing products: None Second hand tobacco smoke exposure: No How often do you have a drink containing alcohol: 4 or more times a week Alcohol type: beer, wine and hard liquor How many standard drinks containing alcohol do you have on a typical day: 1 or 2 How often do you have six or more drinks on one occasion: Never AUDIT-C Alcohol total score: 4 Non-prescribed substance use: denies use Caffeine: Yes How often does anyone, including family, friends and others, physically hurt you: never How often does anyone, including family, friends and others, insult or talk down to you: never How often does anyone, including family, friends and others, threaten you with harm: never How often does anyone, including family, friends and others, scream or curse at you: never service: No Meds Home Medications and Allergies Home Medications ?Medication ?Instructions ?Recorded ?Confirmed ?Type aspirin 81 mg capsule 81 mg PO DAILY 02/06/22 09/28/24 History atorvastatin 20 mg tablet 20 mg PO HS 09/28/24 09/28/24 History losartan 25 mg tablet (Cozaar) 25 mg PO DAILY 09/28/24 09/28/24 History Allergies Allergy/AdvReac Type Severity Reaction Status Date / Time Penicillins Allergy Verified 09/28/24 10:01 Exam Narrative: Exam Narrative: PHYSICAL EXAM General: Pleasant, conversant, NAD HEENT: Normocephalic, atraumatic, sclera white, EOMI, oral mucosa moist Cardiovascular: RRR, S1S2. No pitting edema Pulmonary: CTA bilaterally without rhonchi, rales, expiratory wheezes. No dyspnea Neurological: Alert, answering questions appropriately, cranial nerves intact, no focal findings Extremities: No gross joint deformity or swelling. Postoperative dressing in place, dry. Neurovascularly intact Skin: Warm, dry. Const: Vital Signs, click to edit/add: Vital Signs - 24 hr 09/28/24 10:35 09/28/24 10:51 09/28/24 10:55 Temperature 97.1 F L Pulse Rate 64 71 71 Respiratory Rate 16 16 16 Blood Pressure 129/91 H 138/84 133/71 Pulse Oximetry 96 94 96 Oxygen Delivery Me thod Room Air Nasal Cannula Nasal Cannula Oxygen Flow Rate 2 3 09/28/24 11:00 09/28/24 13:20 09/28/24 13:25 Temperature 97.0 F L Pulse Rate 62 70 50 L Respiratory Rate 16 14 14 Blood Pressure 117/80 71/59 L 119/83 Pulse Oximetry 96 96 95 Oxygen Delivery Me thod Room Air Room Air Oxygen Flow Rate 09/28/24 13:30 09/28/24 13:35 09/28/24 13:40 Temperature 97.1 F L Pulse Rate 60 64 64 Respiratory Rate 14 12 12 Blood Pressure 106/72 115/79 118/72 Pulse Oximetry 97 96 96 Oxygen Delivery Me thod Room Air Room Air Room Air Oxygen Flow Rate 09/28/24 13:45 09/28/24 13:50 09/28/24 13:55 Temperature 97.1 F L 63 F L Pulse Rate 67 66 Respiratory Rate 14 14 14 Blood Pressure 111/68 118/66 112/77 Pulse Oximetry 95 97 Oxygen Delivery Me thod Room Air Room Air Room Air Oxygen Flow Rate 09/28/24 13:58 09/28/24 14:15 09/28/24 14:23 Temperature 97.2 F L 96.5 F L 96.5 F L Pulse Rate 66 66 66 Respiratory Rate 16 18 18 Blood Pressure 111/88 112/78 112/78 Pulse Oximetry 96 99 99 Oxygen Delivery Me thod Room Air Room Air Room Air Oxygen Flow Rate 3 3 09/28/24 14:30 09/28/24 14:45 09/28/24 15:00 Temperature Pulse Rate 62 64 68 Respiratory Rate 18 18 16 Blood Pressure 111/80 119/70 111/71 Pulse Oximetry 99 98 97 Oxygen Delivery Me thod Room Air Room Air Room Air Oxygen Flow Rate 3 Assessment and Plan Assessment and plan (1) Osteoarthritis of left knee: Problem comment: -POD#0 s/p L TKA, Dr. Mcgraw (DOS 09/28/24) -perioperative management including pain management and anticoagulation per Orthopedic surgery -encourage postoperative pulmonary hygiene -PT OT consults -plan to discharge home with spouse tomorrow Status: Acute (2) Hypertension: Problem comment: Pressures soft intraoperatively, SBP 106 currently Resume losartan tomorrow morning pending ongoing improvement of pressures Status: Acute (3) Hyperlipidemia: Problem comment: Continue atorvastatin Status: Chronic Total Time Spent Total Time Spent: Today I spent 60 minutes seeing the patient, discussing the patient with ER staff, reviewing Expanse and Epic notes/diagnostics, discussing the care plan with our team that includes social work, PT/OT, pharmacy, RT, intermediate and documenting my impressions and plan in the medical record.
[2024-09-28] MEDS: OXYCODONE 5 MG TABLET PO ×4 (16:29→21:53)
[2024-09-28] MEDS: CEFAZOLIN 2 GM in 0.9 % SODIUM CHLORIDE Mini-bag 100 ML IVPB (16:30)
[2024-09-28] MEDS: SENNOSIDES 1 TAB TABLET 2 TAB PO ×2 (21:53→21:57)
[2024-09-28] MEDS: ASPIRIN 81 MG TABLET EC PO (21:57)
--- NOTE | 2024-09-28 23:13 | PC.NURSE ---
Patient up with assist of 1, GB and walker. Dressing to knee is clean dry and intact. Non-pitting edema to right leg. Reporting pain at a 6-10/10 in the left knee. Dilaudid and oxycodone given PRN, see eMAR. Patient complaining of throbbing and 'bridgette horses'. Patient perceived to be anxious about surgery/being in the hospital. Unable to sleep. Order obtained for ativan. Tolerating a regular diet, no nausea.
[2024-09-29] VITALS (12 sets, daily range): BP systolic 108–186; BP diastolic 80–123; PULSE 82–114; RESP 16–24; TEMP 36.4–37.2; O2SAT 95–99
[2024-09-29] MEDS: LORazepam 1 MG TABLET PO (00:39)
[2024-09-29] MEDS: CEFAZOLIN 2 GM in 0.9 % SODIUM CHLORIDE Mini-bag 100 ML IVPB (00:39)
[2024-09-29] MEDS: ACETAMINOPHEN 500 MG TABLET 1000 MG PO ×4 (00:39→19:22)
[2024-09-29] MEDS: OXYCODONE 5 MG TABLET PO ×8 (00:50→23:10)
[2024-09-29 06:35] LABS: Basophils Absolute Auto 0.02 K/uL (0.00-0.30); Basophils Percent Auto 0.2 % (0.0-3.0); Eosinophils Absolute Auto 0.06 K/uL (0.00-0.50); Eosinophils Percent Auto 0.6 % (0.0-7.0); Hematocrit 40.2 % (37.0-53.0); Lymphocytes Percent Auto 10.1 % (20-44); Mean Corpuscular HGB Conc 35 gm/dL (32-36); Mean Corpuscular Hemoglobin 29 pg (26-34); Mean Corpuscular Volume 83 fL (80-100); Monocytes Percent Auto 8.6 % (0.0-11.0); Neutrophils Percent Auto 80.5 % (42.0-72.0); Platelet Count* 182 K/uL (140-440); RDW Coefficient of Variation % 13.1 % (11.5-15.5); Red Blood Count 4.84 m/uL (4.30-5.90); White Blood Count* 9.34 K/uL (4.50-11.00)
[2024-09-29 06:43] LABS: Slide Review Reflex No
[2024-09-29 06:44] LABS: Potassium* 3.8 mmol/L (3.6-5.1); Sodium* 131 mmol/L (135-149)
[2024-09-29 06:46] LABS: INR 0.94 (0.91-1.10); Prothrombin Time 13.4 Seconds
[2024-09-29 06:47] LABS: Blood Urea Nitrogen* 20 mg/dL (7-30); Creatinine* 0.8 mg/dL (0.5-1.5); Est. Creatinine Clearance* 76.59; Estimated Glomerular Filt Rate 100 ml/min
--- NOTE | 2024-09-29 07:31 | PC.NURSE ---
END OF SHIFT NOTE: A&Ox3. DENIES CP, SOB, N/V. AMBULATES WITH A1, GB, WALKER. VSS ON RA; AFEBRILE; TMAX 99.0. PT C/O 8/10 PAIN TO LEFT KNEE WITH RELIEF FROM ACTIVE ICE AND MEDICATIONS (SEE EMAR).?CALL LIGHT WITHIN PT?S REACH. PT DID NOT SLEEP MUCH DURING NIGHT.
[2024-09-29] MEDS: LOSARTAN POTASSIUM 50 MG TABLET 25 MG PO (08:37)
[2024-09-29] MEDS: ASPIRIN 81 MG TABLET EC PO ×2 (08:37→21:03)
--- NOTE | 2024-09-29 09:24 | CRLHL7_ITS ---
For Patients: As a result of the Century Cures Act, medical imaging exams and procedure reports are released immediately into your electronic medical record. You may view this report before your referring provider. If you have questions, please contact your health care provider. INDICATION: Hypoxia and tachycardia status post knee surgery TECHNIQUE: CT chest PE was acquired with 95 cc Isovue 370 intravenous contrast. Axial maximum intensity projection reformatted images were performed on the scanner. COMPARISON: None. FINDINGS: Heart and vasculature: Contrast opacification of the pulmonary arterial tree is adequate. No sign of pulmonary embolism. Heart size is normal. Thoracic aorta and pulmonary artery are normal in caliber. Lungs and pleural: No pleural effusion or pneumothorax. Small pulmonary nodules, largest measuring 5 millimeters within the right lower lobe (6, 114). Mild mosaic attenuation pattern within the lungs. Scattered areas of discoid atelectasis. Lymph nodes/mediastinum: No mediastinal, hilar, or axillary adenopathy. Chest wall: No masses. Upper abdomen: Multiple hepatic and renal cysts. Punctate calcification within the left kidney. Mildly hyperdense exophytic renal lesions. Bones: Unremarkable for age. IMPRESSION: 1. No evidence of pulmonary embolus. 2. Mild mosaic attenuation pattern with scattered areas of discoid atelectasis suggesting small airways disease/air trapping. 3. Noncalcified pulmonary nodules, largest measuring 5 millimeters. Management as per [employer] society criteria below. 4. Multiple hepatic and renal cysts suggesting polycystic kidney disease. SOCIETY GUIDELINES - SOLID NODULES: MULTIPLE LOW RISK - nodule less than 6 mm: No routine follow-up. MULTIPLE HIGH RISK - nodule less than 6 mm: Optional CT at 12 months. Please note that all CT scans at this facility use dose modulation, iterative reconstruction, and/or weight-based dosing when appropriate to reduce radiation dose to as low as reasonably achievable. Dictated by Carl Byrne MD @ 09/29/2024 11:03:49 AM (Electronically Signed)
--- NOTE | 2024-09-29 10:01 | PM.ORPN ---
Subjective Subjective Time Seen by Provider: 07:20 Date Seen: 09/29/24 Principal diagnosis: Status post left knee replacement Interval history: Luis M states he has 10/10 pain. He is groggy and has difficulty staying awake with conversing. Ortho Exam Narrative Exam Narrative: Alert and sleepy at times. Patient is in no acute distress. Converses without labored breathing. Hearing is grossly intact. Ambulates with a walker. Examination of the left knee shows the dressing is in place. Mild to moderate hematoma anterior knee. Soft tissue edema about the thigh. No edema about the lower leg. CMS intact left lower extremity. Calves are soft and nontender. He is able to slightly straight leg raise approximately 4 inches off the bed. No erythema or warmth or sign of infection. Const Vital Signs, click to edit/add: Vital Signs - 24 hr 09/28/24 10:35 09/28/24 10:51 09/28/24 10:55 Temperature 97.1 F L Pulse Rate 64 71 71 Pulse Rate [Right Pulse Oximeter] Respiratory Rate 16 16 16 Blood Pressure 129/91 H 138/84 133/71 Blood Pressure [Left Arm] Pulse Oximetry 96 94 96 Oxygen Delivery Method Room Air Nasal Cannula Nasal Cannula Oxygen Flow Rate 2 3 09/28/24 11:00 09/28/24 13:20 09/28/24 13:25 Temperature 97.0 F L Pulse Rate 62 70 50 L Pulse Rate [Right Pulse Oximeter] Respiratory Rate 16 14 14 Blood Pressure 117/80 71/59 L 119/83 Blood Pressure [Left Arm] Pulse Oximetry 96 96 95 Oxygen Delivery Method Room Air Room Air Oxygen Flow Rate 09/28/24 13:30 09/28/24 13:35 09/28/24 13:40 Temperature 97.1 F L Pulse Rate 60 64 64 Pulse Rate [Right Pulse Oximeter] Respiratory Rate 14 12 12 Blood Pressure 106/72 115/79 118/72 Blood Pressure [Left Arm] Pulse Oximetry 97 96 96 Oxygen Delivery Method Room Air Room Air Room Air Oxygen Flow Rate 09/28/24 13:45 09/28/24 13:50 09/28/24 13:55 Temperature 97.1 F L 63 F L Pulse Rate 67 66 Pulse Rate [Right Pulse Oximeter] Respiratory Rate 14 14 14 Blood Pressure 111/68 118/66 112/77 Blood Pressure [Left Arm] Pulse Oximetry 95 97 Oxygen Delivery Method Room Air Room Air Room Air Oxygen Flow Rate 09/28/24 13:58 09/28/24 14:15 09/28/24 14:23 Temperature 97.2 F L 96.5 F L 96.5 F L Pulse Rate 66 66 66 Pulse Rate [Right Pulse Oximeter] Respiratory Rate 16 18 18 Blood Pressure 111/88 112/78 112/78 Blood Pressure [Left Arm] Pulse Oximetry 96 99 99 Oxygen Delivery Method Room Air Room Air Room Air Oxygen Flow Rate 3 3 09/28/24 14:30 09/28/24 14:45 09/28/24 15:00 Temperature Pulse Rate 62 64 68 Pulse Rate [Right Pulse Oximeter] Respiratory Rate 18 18 16 Blood Pressure 111/80 119/70 111/71 Blood Pressure [Left Arm] Pulse Oximetry 99 98 97 Oxygen Delivery Method Room Air Room Air Room Air Oxygen Flow Rate 3 09/28/24 15:00 09/28/24 15:15 09/28/24 15:45 Temperature Pulse Rate 52 L 49 L Pulse Rate [Right Pulse Oximeter] Respiratory Rate 16 16 16 Blood Pressure 104/78 108/67 Blood Pressure [Left Arm] Pulse Oximetry 97 97 97 Oxygen Delivery Method Room Air Room Air Room Air Oxygen Flow Rate 09/28/24 16:00 09/28/24 17:00 09/28/24 18:00 Temperature 97.5 F L Pulse Rate 68 57 L 68 Pulse Rate [Right Pulse Oximeter] Respiratory Rate 16 16 16 Blood Pressure 99/62 112/83 127/70 Blood Pressure [Left Arm] Pulse Oximetry 97 97 97 Oxygen Delivery Method Room Air Room Air Room Air Oxygen Flow Rate 09/28/24 19:00 09/29/24 00:35 09/29/24 00:35 Temperature 98 F Pulse Rate 87 Pulse Rate [Right Pulse Oximeter] 82 Respiratory Rate 16 16 16 Blood Pressure 144/95 H Blood Pressure [Left Arm] Pulse Oximetry 97 95 Oxygen Delivery Method Room Air Room Air Oxygen Flow Rate 09/29/24 00:35 09/29/24 03:00 09/29/24 07:39 Temperature 99.0 F 97.8 F Pulse Rate Pulse Rate [Right Pulse Oximeter] 82 89 Respiratory Rate 16 24 20 Blood Pressure Blood Pressure [Left Arm] 136/83 150/97 H Pulse Oximetry 95 99 98 Oxygen Delivery Method Room Air Room Air Room Air Oxygen Flow Rate 09/29/24 07:39 Temperature 98.0 F Pulse Rate Pulse Rate [Right Pulse Oximeter] 109 H Respiratory Rate 20 Blood Pressure Blood Pressure [Left Arm] 108/80 Pulse Oximetry 98 Oxygen Delivery Method Room Air Oxygen Flow Rate Assessment and Plan Assessment and plan (1) Status post left knee replacement: Problem details: 09/28/2024Mariluz Status: Acute Assessment and Plan: Plan for discharge is today to home if they meet discharge criteria. DVT prophylaxis includes aspirin 81 mg twice daily x1 month, Compression stockings as needed for swelling. Frequent ambulation, every hour throughout the day. Remove dressing in 1 week. Observe wound and phone Orthopedics with any questions or concerns Return to clinic in 1 week for a wound check Return to clinic in 6 weeks with surgeon Minimize narcotic use. Wean off and discontinue soon as possible. Activities as tolerated. No strenuous activity. Outpatient physical therapy as scheduled. Ice and elevate the operative extremity. No restriction on ice.
[2024-09-29 10:05] LABS: INR 0.99 (0.91-1.10); Prothrombin Time 13.9 Seconds
[2024-09-29 10:06] LABS: Partial Thromboplastin Time* 28 Seconds (23-33)
[2024-09-29 10:25] LABS: Troponin I* < 0.01 ng/mL (0.01-0.04)
--- NOTE | 2024-09-29 10:32 | PC.NURSE ---
At approximately 0900 during PT session pt. C/O dizziness/lightheadedness and became drowsy. VS obtained: increased BP, increased tachycardia, and desaturation to mid 80s. Dr. Castillo notified and in to see patient. Telemetry and oxygen applied. EKG obtained. Pt. currently having Chest CT completed.
--- NOTE | 2024-09-29 11:30 | REH.OT ---
OT consult order received. Pt. not able to participate in OT evaluation at this time. Plan to reattempt this PM or tomorrow pending pt. condition.
[2024-09-29] MEDS: ONDANSETRON 2 MG/ML inj 4 MG IVP (12:26)
[2024-09-29] MEDS: POTASSIUM BICARB 25 MEQ EFFERVESCENT TAB PO (14:35)
[2024-09-29] MEDS: LACTATED RINGERS 500 ML 500 ML IV (14:36)
--- NOTE | 2024-09-29 16:11 | CRLHL7_ITS ---
For Patients: As a result of the Cures Act, medical imaging exams and procedure reports are released immediately into your electronic medical record. You may view this report before your referring provider. If you have questions, please contact your health care provider. INDICATION: 04/29 pain day after left TKA, swelling TECHNIQUE: Venous duplex ultrasound of the left lower extremity utilizing compression with ma-scale, color Doppler, and spectral Doppler imaging. COMPARISON: None FINDINGS: There is no sonographic evidence of deep vein thrombosis in the imaged left common femoral, deep femoral, superficial femoral, popliteal, posterior tibial, peroneal, or contralateral common femoral veins. The distal left superficial femoral vein is not well visualized. There is no visualized superficial vein thrombosis. The soft tissues are unremarkable. IMPRESSION: No appreciable deep vein thrombosis in the left lower extremity. Dictated by Iglesia Cardenas MD @ 09/29/2024 6:12:29 PM (Electronically Signed)
--- NOTE | 2024-09-29 18:24 | PC.NURSE ---
Discussed use of Celebrex with provider Anayeli, referred to pharmacy. Pharmacy consulted, proceed with Celebrex.
[2024-09-29] MEDS: CELECOXIB 200 MG CAPSULE PO (19:23)
[2024-09-29] MEDS: SENNOSIDES 1 TAB TABLET 2 TAB PO (21:02)
[2024-09-29] MEDS: ATORVASTATIN CALCIUM 10 MG TABLET 20 MG PO (21:03)
[2024-09-29] MEDS: METOPROLOL TARTRATE 1 MG/ML inj 5 MG IVP (21:22)
--- NOTE | 2024-09-29 22:44 | PC.NURSE ---
End of Shift: Patient pleasant and cooperative. Temp max 99.0. Rating pain in left knee 8-04/29, PRN Oxycodone x3. Updated ortho PA and also added Celebrex. Dr. Mcgraw in to see pt. Dressing to left knee C/D/I. CMS intact. Up to bathroom with 1 assist, walker and gait belt. Tolerating regular diet with no nausea. BP continues to be increased and heart rate 90-115, updated hospitalist and one time dose of IV metoprolol. O2 sats decrease to 85% on room air while sleeping, 1L NC to keep sats greater than 90%.
[2024-09-30 03:30] VITALS: BP 136/87; PULSE 106; RESP 18; TEMP 36.9; O2SAT 95
[2024-09-30] MEDS: OXYCODONE 5 MG TABLET PO ×3 (03:30→08:46)
[2024-09-30] MEDS: ACETAMINOPHEN 500 MG TABLET 1000 MG PO (05:58)
[2024-09-30 06:33] LABS: Basophils Absolute Auto 0.02 K/uL (0.00-0.30); Basophils Percent Auto 0.2 % (0.0-3.0); Eosinophils Absolute Auto 0.08 K/uL (0.00-0.50); Eosinophils Percent Auto 0.8 % (0.0-7.0); Hemoglobin* 13.3 gm/dL (13.5-17.5); Immature Granulocytes Abs Auto 0.02 K/uL (0.00-0.30); Immature Granulocytes Pct Auto 0.2 %; Mean Corpuscular HGB Conc 34 gm/dL (32-36); Mean Corpuscular Hemoglobin 29 pg (26-34); Mean Corpuscular Volume 84 fL (80-100); Monocytes Percent Auto 11.2 % (0.0-11.0); Neutrophils Percent Auto 75.6 % (42.0-72.0); Platelet Count* 178 K/uL (140-440); RDW Coefficient of Variation % 13.4 % (11.5-15.5); Red Blood Count 4.65 m/uL (4.30-5.90); White Blood Count* 9.94 K/uL (4.50-11.00)
--- NOTE | 2024-09-30 06:35 | PC.NURSE ---
End of shift summary: Pt has been A&O, afebrile and VSS overnight. He did not require and supplemental O2, sats maintained > 90% on RA. He is ambulating SBA with 2ww. Pt self transferred a couple of times overnight, bed alarm was needed. Reported left knee pain in between a 3-6 ouf of 10 overnight. PRN oxycodone given last @ 0600 and active ice has been on/off throughout the night. Surgical dressing is C/D/I. Left leg noted to be tight & swollen, no localized redness or pitting edema. Pedal pulses intact. PIV x2 SL and C/D/I. TELE showed sinus tach overnight ranging in the 80s at rest and 120s with activity. Pt denied any SOB, nausea or dizziness overnight. Plans to discharge home with today. ?
[2024-09-30 06:39] LABS: Slide Review Reflex No
[2024-09-30 06:45] LABS: Chloride* 98 mmol/L (96-114); Potassium* 4.2 mmol/L (3.6-5.1); Sodium* 132 mmol/L (135-149)
[2024-09-30 06:48] LABS: Anion Gap 6 mEq/L (7-15); Blood Urea Nitrogen* 13 mg/dL (7-30); Carbon Dioxide* 28 mmol/L (20-32); Creatinine* 0.9 mg/dL (0.5-1.5); Est. Creatinine Clearance* 76.59; Estimated Glomerular Filt Rate 97 ml/min
[2024-09-30 06:49] LABS: Calcium* 9.2 mg/dL (8.4-10.6); Glucose* 123 mg/dL (60-115)
[2024-09-30 07:00] VITALS: BP 111/67; PULSE 75; RESP 18; O2SAT 93
[2024-09-30 07:02] LABS: INR 1.16 (0.91-1.10); Prothrombin Time 15.7 Seconds
--- NOTE | 2024-09-30 08:15 | PM.DS1 ---
DS: Providers Provider Date Seen: 09/30/24 Date of admission: 09/29/24 13:27 Primary care physician: Chelsea Hdz APRN, INTERPRETIVE PROGRAM COORDINATOR Admitting Clinician: Fahad Castillo MD Attending Physician on discharge: Jorge Mcgraw MD Date of Discharge: 09/30/24 DS: Diagnosis Discharge Diagnosis (1) Status post left knee replacement: Status: Acute Problem details: 09/28/2024, [place] (2) Hypoxia: Status: Acute Problem details: Postop day 1 patient developed hypoxia. Evaluation for PE was negative. CT scan of chest did show a mosaic pattern of attenuation possibly representing small airway disease or air trapping. No PE, no pneumonia, no heart failure (3) Tachycardia: Status: Acute Problem details: Postop day 1 patient had sinus tachycardia. Treated with IV fluids. Electrocardiogram was otherwise unremarkable. Troponin was negative. PE study was negative. DS: Summary Hospital Course Hospital Course: 64-year-old male admitted to the hospital for left total knee arthroplasty. Procedure was performed by Dr. Mcgraw on the day of admission. There were no operative complications. Postoperatively he had some difficulties with pain control in his left knee. Postop day 1 he developed hypoxia and tachycardia. Evaluation for this including evaluation for heart disease, pulmonary embolism, pneumonia was all unremarkable. He received IV fluids but otherwise had no specific therapy and symptoms improved overnight. He is anxious to go home today. Status at Discharge Functional status at discharge: uses cane/walker Overall status at discharge: patient is progressing back to baseline Time Spent with Patient Time attestation: Total time spent providing and/or coordinating discharge services: 35 minutes Time spent: Greater than 30 minutes Exam Narrative: Exam Narrative: He is alert and in no distress. Breathing is unlabored. Mood and affect are bright.. Const: Vital Signs, click to edit/add: Vital Signs - 24 hr 09/29/24 09:37 09/29/24 12:00 09/29/24 12:00 Temperature 97.5 F L Pulse Rate 114 H Pulse Rate [Left D orsalis Pedis] 101 H Pulse Rate [Right Pulse Oximeter] Respiratory Rate 18 Blood Pressure [Le ft Arm] 121/97 H Blood Pressure [Ri ght Arm] Pulse Oximetry 98 Oxygen Delivery Me thod Room Air Oxygen Flow Rate 09/29/24 14:30 09/29/24 14:45 09/29/24 15:00 Temperature Pulse Rate Pulse Rate [Left D orsalis Pedis] Pulse Rate [Right Pulse Oximeter] Respiratory Rate Blood Pressure [Le ft Arm] 173/101 H 171/123 H Blood Pressure [Ri ght Arm] Pulse Oximetry 97 Oxygen Delivery Me thod Nasal Cannula Oxygen Flow Rate 1 09/29/24 15:00 09/29/24 15:00 09/29/24 15:30 Temperature 98.7 F Pulse Rate 107 H Pulse Rate [Left D orsalis Pedis] Pulse Rate [Right Pulse Oximeter] 107 H 107 H Respiratory Rate 18 18 Blood Pressure [Le ft Arm] 186/102 H Blood Pressure [Ri ght Arm] Pulse Oximetry 97 Oxygen Delivery Me thod Nasal Cannula Oxygen Flow Rate 1 09/29/24 19:00 09/29/24 21:20 09/29/24 23:10 Temperature 99.0 F Pulse Rate 97 Pulse Rate [Left D orsalis Pedis] Pulse Rate [Right Pulse Oximeter] 104 H 109 H Respiratory Rate 16 Blood Pressure [Le ft Arm] 161/100 H 172/102 H Blood Pressure [Ri ght Arm] 172/103 H Pulse Oximetry 97 Oxygen Delivery Me thod Room Air Oxygen Flow Rate 09/29/24 23:10 09/29/24 23:10 09/29/24 23:10 Temperature 97.9 F Pulse Rate Pulse Rate [Left D orsalis Pedis] Pulse Rate [Right Pulse Oximeter] 84 84 Respiratory Rate 20 20 20 Blood Pressure [Le ft Arm] 161/94 H Blood Pressure [Ri ght Arm] 181/100 H Pulse Oximetry 98 98 Oxygen Delivery Me thod Room Air Room Air Oxygen Flow Rate 09/30/24 03:30 Temperature 98.4 F Pulse Rate Pulse Rate [Left D orsalis Pedis] Pulse Rate [Right Pulse Oximeter] 106 H Respiratory Rate 18 Blood Pressure [Le ft Arm] Blood Pressure [Ri ght Arm] 136/87 Pulse Oximetry 95 Oxygen Delivery Me thod Room Air Oxygen Flow Rate Documenting provider has reviewed patient's vital signs: yes DS: Data Data Completed and Pending Labs on day of discharge: Labs from last 24 hours 09/30/24 09/29/24 06:06 09:41 WBC 9.94 RBC 4.65 Hgb 13.3 L Hct 39.0 MCV 84 MCH 29 MCHC 34 RDW Coeff of Macy 13.4 Plt Count 178 Neut % (Auto) 75.6 H Lymph % (Auto) 12.0 L [place] % (Auto) 11.2 H Eos % (Auto) 0.8 Baso % (Auto) 0.2 Neut # (Auto) 7.50 H Lymph # (Auto) 1.20 [place] # (Auto) 1.10 H Eos # (Auto) 0.08 Baso # (Auto) 0.02 Abs Immat Gran (auto) 0.02 Imm/Tot Granulo (auto) 0.2 INR 1.16 H 0.99 APTT 28 Sodium 132 L Potassium 4.2 Chloride 98 Carbon Dioxide 28 Anion Gap 6 L BUN 13 Creatinine 0.9 Estimated Creat Clear 76.59 Estimated GFR 97 Glucose 123 H Calcium 9.2 Troponin I < 0.01 L Imaging Venous US: Radiologist's impression: INDICATION: 04/29 pain day after left TKA, swelling TECHNIQUE: Venous duplex ultrasound of the left lower extremity utilizing compression with am-scale, color Doppler, and spectral Doppler imaging. COMPARISON: None FINDINGS: There is no sonographic evidence of deep vein thrombosis in the imaged left common femoral, deep femoral, superficial femoral, popliteal, posterior tibial, peroneal, or contralateral common femoral veins. The distal left superficial femoral vein is not well visualized. There is no visualized superficial vein thrombosis. The soft tissues are unremarkable. IMPRESSION: No appreciable deep vein thrombosis in the left lower extremity. CT scan - chest: Radiologist's impression: INDICATION: Hypoxia and tachycardia status post knee surgery TECHNIQUE: CT chest PE was acquired with 95 cc Isovue 370 intravenous contrast. Axial maximum intensity projection reformatted images were performed on the scanner. COMPARISON: None. FINDINGS: Heart and vasculature: Contrast opacification of the pulmonary arterial tree is adequate. No sign of pulmonary embolism. Heart size is normal. Thoracic aorta and pulmonary artery are normal in caliber. Lungs and pleural: No pleural effusion or pneumothorax. Small pulmonary nodules, largest measuring 5 millimeters within the right lower lobe (6, 114). Mild mosaic attenuation pattern within the lungs. Scattered areas of discoid atelectasis. Lymph nodes/mediastinum: No mediastinal, hilar, or axillary adenopathy. Chest wall: No masses. Upper abdomen: Multiple hepatic and renal cysts. Punctate calcification within the left kidney. Mildly hyperdense exophytic renal lesions. Bones: Unremarkable for age. IMPRESSION: 1. No evidence of pulmonary embolus. 2. Mild mosaic attenuation pattern with scattered areas of discoid atelectasis suggesting small airways disease/air trapping. 3. Noncalcified pulmonary nodules, largest measuring 5 millimeters. Management as per King society criteria below. 4. Multiple hepatic and renal cysts suggesting polycystic kidney disease. SOCIETY GUIDELINES - SOLID NODULES: MULTIPLE LOW RISK - nodule less than 6 mm: No routine follow-up. MULTIPLE HIGH RISK - nodule less than 6 mm: Optional CT at 12 months. Discharge Plan Discharge Disposition: Home, Self-Care Date of Admission: 09/29/24 13:27 Attending Provider on Discharge: Fahad Castillo Consulting Providers: Shae Block; Devorah Downey; Karri Stern; Tl Lozano; Luis M Park; Garrick Mooney; Sanna Perera; Aureliano Donnelly; Lizzie Hodges; Celia Flores; Liza Sanders; Alex Schwartz; Laura Badillo; Kong Rebollar; Fahad Castillo; Dru Johns; Thai Aguirre; Vern Russell; Kelvin Gudino; Nora Crowley; Kobi Saab; Ava Blanchard; Ching Benton; Yissel Menard; Ronit Julio; Daly Avalos; Dianna Campuzano; Natali Magallanes; Garth Magallanes; Ned Boateng; Kenney Long; Jimenez Renner; Ciara Hogan; Janelle Lizarraga; Peter Gautam; Dante Villeda Primary Care Provider: Chelsea Hdz Condition: Improved Anticipated Discharge Date/Time: 09/30/24 10:00 Discharge Medications: New sennosides [Senna Lax] 8.6 mg Tablet 17.2 mg PO BID PRN (Reason: constipation) Qty: 100 0RF aspirin [Aspirin Childrens] 81 mg tablet,chewable 81 mg PO BID 30 Days Qty: 60 0RF acetaminophen 500 mg capsule 500 - 1,000 mg PO Q6H MDD 4000mg per day PRN (Reason: pain) Qty: 100 0RF oxycodone 5 mg Tablet 2.5 - 5 mg PO Q4-6H MDD 6 tabs per day PRN (Reason: Pain) Qty: 42 0RF Rx Instructions: Minimize. Discontinue as soon as possible Continued tadalafil [Cialis] 10 mg tablet 10 mg PO QDAY PRN (Reason: sexual activity) Qty: 8 6RF Rx Instructions: administer approximately 30min before sexual activity; do not use more than 1 dose per 24hrs atorvastatin 20 mg tablet 20 mg PO HS losartan [Cozaar] 25 mg tablet 25 mg PO DAILY Held aspirin 81 mg capsule 81 mg PO DAILY Hold Instructions: Resume on 10/29/24. Discharge Orders: Discharge Order (Routine); Ordered 09/30/24 Ordered By: Fahad Castillo Consulting provider completed their portion of the discharge: Yes Patient Education: Acetaminophen (By mouth), Aspirin (By mouth), Oxycodone, Rapid Release (By mouth), Senna (By mouth) (Sen, Senna-lax), Total Knee Replacement (DC) Activity Level: Activity as Tolerated and No strenuous activity Activity Detail: Keep dressing on for 1 week. Dressing is waterproof. May shower. Surgical glue covers the wound. Attend outpatient physical therapy if scheduled. Ice and elevate operative extremity without restriction. Swelling and bruising will worsen within the first week. When swelling occurs, elevate the extremity above heart level several times a day and gently massage/pull soft tissue swelling toward hip. This allows gravity to assist in eliminating the swelling/edema. Wear compression stockings/crow bandages as needed for swelling. Ambulate every hour throughout the day. If you drive, Do not drive while taking narcotic pain medication. Do not drink alcohol while taking narcotic pain medication. May drive when safe to do so and have full function of the extremities, this may take 6 weeks or more. Notify Orthopedics with any questions or concerns. ([phone]) Discharge Diet: Regular Follow Up Appointments: [facility] [Provider Group] - 10/01/24 1:00 pm ([facility] for post op PT and OT. Please arrive to your first appointment 15 minutes early to allow time for paperwork. Appointments also on 10/04 at 13:00 and 10/06 at 1300.) Rhonda Valencia PA-C [Physician Dental Professional] - 10/06/24 8:30 am ([facility] for follow-up.) Chelsea Hdz APRN, INTERPRETIVE PROGRAM COORDINATOR [Primary Care Provider] - Forms: MyHealth Info Instructions
--- NOTE | 2024-09-30 08:27 | P.IMPN_ITS ---
Progress Note: A&P Assessment and plan (1) History of total left knee replacement: Problem details: Left total knee arthroplasty. Dr. Mcgraw, 09/28/24. Difficulty with postoperative pain Status: Acute (2) Tachycardia: Problem details: Postop day 1 patient had sinus tachycardia. Treated with IV fluids. Electrocardiogram was otherwise unremarkable. Troponin was negative. PE study was negative. Status: Acute (3) Hypoxia: Problem details: Postop day 1 patient developed hypoxia. Evaluation for PE was negative. CT scan of chest did show a mosaic pattern of attenuation possibly representing small airway disease or air trapping. No PE, no pneumonia, no heart failure. Resolved Status: Acute (4) Postoperative nausea: Problem details: Likely related to opioid medicine. Continue to monitor and manage Status: Acute (5) Lung nodule, multiple: Problem details: He has multiple lung nodules less than 6 mm in size. He is a low risk patient. Guidelines indicate no routine follow-up needed Status: Acute Plan Patient will be continued in hospital for evaluation and treatment of hypoxia, tachycardia, knee pain, nausea. Anticipate discharge tomorrow if clinically improving. Further evaluation depending on clinical course Time Spent With Patient Total time spent: Total time spent on September 29 is 45 minutes in coordination of care, discussion with patient and family and other providers ongoing evaluation management of nausea, tachycardia, hypoxia. Subjective Date Seen: 09/29/24 Interval history: 64-year-old male admitted to the hospital yesterday for left total knee arthroplasty. Procedures performed by Dr. Mcgraw. No operative complications. Overnight he has had significant problems with pain control. Particularly having pain behind his operative knee. Because this he is also having difficulties with mobility. This morning when he was up with therapy he became quite dyspneic. Therapy noted that his O2 sats dropped into the lower 80s on room air and his pulse went into the 120s. He did not have any chest pain. I was called to evaluate him because of this. Patient reports no recent symptoms of illness. Prior to surgery he had no symptoms of cold or cough or fever. He has had no history of cardiac disease or lung disease. Never smoker. No asthma. He recently had a coronary calcium CT score of 0. No personal or family history of blood clot. He is also reporting significant nausea today and having difficulty eating anything. Exam Narrative: Exam Narrative: He is alert and appears anxious and mildly tachypneic. Respirations are clear to auscultation without wheezing rales or rhonchi. Cardiovascular: S1, S2, regular tachycardia. No murmur gallop or rub. Abdomen: Bowel sounds active. Abdomen is soft without tenderness or mass. Lower extremities examined. Is [id number] swelling around the left knee. No significant erythema. Mild diffuse tenderness consistent with his postoperative status. Distal that he has mild edema in his left leg. Is intact pulses and sensation in his feet and intact motion in his feet and ankles. Const: Vital Signs, click to edit/add: Vital Signs - 24 hr 09/29/24 09:37 09/29/24 12:00 09/29/24 12:00 Temperature 97.5 F L Pulse Rate 114 H Pulse Rate [Left D orsalis Pedis] 101 H Pulse Rate [Right Pulse Oximeter] Respiratory Rate 18 Blood Pressure [Le ft Arm] 121/97 H Blood Pressure [Ri ght Arm] Pulse Oximetry 98 Oxygen Delivery Me thod Room Air Oxygen Flow Rate 09/29/24 14:30 09/29/24 14:45 09/29/24 15:00 Temperature Pulse Rate Pulse Rate [Left D orsalis Pedis] Pulse Rate [Right Pulse Oximeter] Respiratory Rate Blood Pressure [Le ft Arm] 173/101 H 171/123 H Blood Pressure [Ri ght Arm] Pulse Oximetry 97 Oxygen Delivery Me thod Nasal Cannula Oxygen Flow Rate 1 09/29/24 15:00 09/29/24 15:00 09/29/24 15:30 Temperature 98.7 F Pulse Rate 107 H Pulse Rate [Left D orsalis Pedis] Pulse Rate [Right Pulse Oximeter] 107 H 107 H Respiratory Rate 18 18 Blood Pressure [Le ft Arm] 186/102 H Blood Pressure [Ri ght Arm] Pulse Oximetry 97 Oxygen Delivery Me thod Nasal Cannula Oxygen Flow Rate 1 09/29/24 19:00 09/29/24 21:20 09/29/24 23:10 Temperature 99.0 F Pulse Rate 97 Pulse Rate [Left D orsalis Pedis] Pulse Rate [Right Pulse Oximeter] 104 H 109 H Respiratory Rate 16 Blood Pressure [Le ft Arm] 161/100 H 172/102 H Blood Pressure [Ri ght Arm] 172/103 H Pulse Oximetry 97 Oxygen Delivery Me thod Room Air Oxygen Flow Rate 09/29/24 23:10 09/29/24 23:10 09/29/24 23:10 Temperature 97.9 F Pulse Rate Pulse Rate [Left D orsalis Pedis] Pulse Rate [Right Pulse Oximeter] 84 84 Respiratory Rate 20 20 20 Blood Pressure [Le ft Arm] 161/94 H Blood Pressure [Ri ght Arm] 181/100 H Pulse Oximetry 98 98 Oxygen Delivery Me thod Room Air Room Air Oxygen Flow Rate 09/30/24 03:30 Temperature 98.4 F Pulse Rate Pulse Rate [Left D orsalis Pedis] Pulse Rate [Right Pulse Oximeter] 106 H Respiratory Rate 18 Blood Pressure [Le ft Arm] Blood Pressure [Ri ght Arm] 136/87 Pulse Oximetry 95 Oxygen Delivery Me thod Room Air Oxygen Flow Rate Documenting provider has reviewed patient's vital signs: yes Labs Labs: Laboratory Results - last 24 hr 09/29/24 09/30/24 09:41 06:06 WBC 9.94 RBC 4.65 Hgb 13.3 L Hct 39.0 MCV 84 MCH 29 MCHC 34 RDW Coeff of Macy 13.4 Plt Count 178 Neut % (Auto) 75.6 H Lymph % (Auto) 12.0 L [place] % (Auto) 11.2 H Eos % (Auto) 0.8 Baso % (Auto) 0.2 Neut # (Auto) 7.50 H Lymph # (Auto) 1.20 [place] # (Auto) 1.10 H Eos # (Auto) 0.08 Baso # (Auto) 0.02 Abs Immat Gran (auto) 0.02 Imm/Tot Granulo (auto) 0.2 INR 0.99 1.16 H APTT 28 Sodium 132 L Potassium 4.2 Chloride 98 Carbon Dioxide 28 Anion Gap 6 L BUN 13 Creatinine 0.9 Estimated Creat Clear 76.59 Estimated GFR 97 Glucose 123 H Calcium 9.2 Troponin I < 0.[address] scan - chest: Radiologist's impression: INDICATION: Hypoxia and tachycardia status post knee surgery TECHNIQUE: CT chest PE was acquired with 95 cc Isovue 370 intravenous contrast. Axial maximum intensity projection reformatted images were performed on the scanner. COMPARISON: None. FINDINGS: Heart and vasculature: Contrast opacification of the pulmonary arterial tree is adequate. No sign of pulmonary embolism. Heart size is normal. Thoracic aorta and pulmonary artery are normal in caliber. Lungs and pleural: No pleural effusion or pneumothorax. Small pulmonary nodules, largest measuring 5 millimeters within the right lower lobe (6, 114). Mild mosaic attenuation pattern within the lungs. Scattered areas of discoid atelectasis. Lymph nodes/mediastinum: No mediastinal, hilar, or axillary adenopathy. Chest wall: No masses. Upper abdomen: Multiple hepatic and renal cysts. Punctate calcification within the left kidney. Mildly hyperdense exophytic renal lesions. Bones: Unremarkable for age. IMPRESSION: 1. No evidence of pulmonary embolus. 2. Mild mosaic attenuation pattern with scattered areas of discoid atelectasis suggesting small airways disease/air trapping. 3. Noncalcified pulmonary nodules, largest measuring 5 millimeters. Management as per King society criteria below. 4. Multiple hepatic and renal cysts suggesting polycystic kidney disease. SOCIETY GUIDELINES - SOLID NODULES: MULTIPLE LOW RISK - nodule less than 6 mm: No routine follow-up. MULTIPLE HIGH RISK - nodule less than 6 mm: Optional CT at 12 months. Please note that all CT scans at this facility use dose modulation, iterative reconstruction, and/or weight-based dosing when appropriate to reduce radiation dose to as low as reasonably achievable. Venous US: Radiologist's impression: INDICATION: 04/29 pain day after left TKA, swelling TECHNIQUE: Venous duplex ultrasound of the left lower extremity utilizing compression with ma-scale, color Doppler, and spectral Doppler imaging. COMPARISON: None FINDINGS: There is no sonographic evidence of deep vein thrombosis in the imaged left common femoral, deep femoral, superficial femoral, popliteal, posterior tibial, peroneal, or contralateral common femoral veins. The distal left superficial femoral vein is not well visualized. There is no visualized superficial vein thrombosis. The soft tissues are unremarkable. IMPRESSION: No appreciable deep vein thrombosis in the left lower extremity. ECG Attestation: I personally reviewed and interpreted this ECG as follows: (Sinus tachycardia otherwise normal)
[2024-09-30 08:30] VITALS: O2SAT 96
[2024-09-30] MEDS: SENNOSIDES 1 TAB TABLET 2 TAB PO (08:45)
[2024-09-30] MEDS: CELECOXIB 200 MG CAPSULE PO (08:45)
[2024-09-30] MEDS: LOSARTAN POTASSIUM 50 MG TABLET 25 MG PO (08:46)
[2024-09-30] MEDS: ASPIRIN 81 MG TABLET EC PO (08:46)
--- NOTE | 2024-09-30 08:51 | PM.ORPN ---
Subjective Subjective Time Seen by Provider: 08:51 Date Seen: 09/30/24 Principal diagnosis: Status post left knee replacement Interval history: Luis M is more comfortable today. He is also more swollen today. He will discharge to home today with his . Ortho Exam Narrative Exam Narrative: Alert and oriented x3. Patient is in no acute distress. Converses without labored breathing. Hearing is grossly intact. Ambulates with a walker. Drowsy. Examination of the left lower extremity shows thigh and calf swelling. CMS intact left lower extremity. Dressing is intact. No erythema or warmth or sign of infection. Calves are nontender. Const Vital Signs, click to edit/add: Vital Signs - 24 hr 09/29/24 09:37 09/29/24 12:00 09/29/24 12:00 Temperature 97.5 F L Pulse Rate 114 H Pulse Rate [Left Dorsalis Pedis] 101 H Pulse Rate [Right Pulse Oximeter] Respiratory Rate 18 Blood Pressure [Left Arm] 121/97 H Blood Pressure [Right Arm] Pulse Oximetry 98 Oxygen Delivery Method Room Air Oxygen Flow Rate 09/29/24 14:30 09/29/24 14:45 09/29/24 15:00 Temperature Pulse Rate Pulse Rate [Left Dorsalis Pedis] Pulse Rate [Right Pulse Oximeter] Respiratory Rate Blood Pressure [Left Arm] 173/101 H 171/123 H Blood Pressure [Right Arm] Pulse Oximetry 97 Oxygen Delivery Method Nasal Cannula Oxygen Flow Rate 1 09/29/24 15:00 09/29/24 15:00 09/29/24 15:30 Temperature 98.7 F Pulse Rate 107 H Pulse Rate [Left Dorsalis Pedis] Pulse Rate [Right Pulse Oximeter] 107 H 107 H Respiratory Rate 18 18 Blood Pressure [Left Arm] 186/102 H Blood Pressure [Right Arm] Pulse Oximetry 97 Oxygen Delivery Method Nasal Cannula Oxygen Flow Rate 1 09/29/24 19:00 09/29/24 21:20 09/29/24 23:10 Temperature 99.0 F Pulse Rate 97 Pulse Rate [Left Dorsalis Pedis] Pulse Rate [Right Pulse Oximeter] 104 H 109 H Respiratory Rate 16 Blood Pressure [Left Arm] 161/100 H 172/102 H Blood Pressure [Right Arm] 172/103 H Pulse Oximetry 97 Oxygen Delivery Method Room Air Oxygen Flow Rate 09/29/24 23:10 09/29/24 23:10 09/29/24 23:10 Temperature 97.9 F Pulse Rate Pulse Rate [Left Dorsalis Pedis] Pulse Rate [Right Pulse Oximeter] 84 84 Respiratory Rate 20 20 20 Blood Pressure [Left Arm] 161/94 H Blood Pressure [Right Arm] 181/100 H Pulse Oximetry 98 98 Oxygen Delivery Method Room Air Room Air Oxygen Flow Rate 09/30/24 03:30 09/30/24 07:00 Temperature 98.4 F Pulse Rate Pulse Rate [Left Dorsalis Pedis] Pulse Rate [Right Pulse Oximeter] 106 H 75 Respiratory Rate 18 18 Blood Pressure [Left Arm] 111/67 Blood Pressure [Right Arm] 136/87 Pulse Oximetry 95 93 Oxygen Delivery Method Room Air Room Air Oxygen Flow Rate Assessment and Plan Assessment and plan (1) History of total left knee replacement: Problem details: Left total knee arthroplasty. Dr. Mcgraw, 09/28/24 Status: Acute Plan Plan for discharge is today to home . Ultrasound was negative for DVT yesterday. CT negative for PE DVT prophylaxis includes aspirin 81 mg twice daily x1 month, Compression stockings as needed for swelling. Frequent ambulation, every hour throughout the day. Expect more swelling and bruising in the 1st week after surgery. Will be beneficial to elevate operative extremity above heart level and massage soft tissue edema proximally. Can do this several times a day as needed. Remove dressing in 1 week. Observe wound and phone Orthopedics with any questions or concerns Return to clinic in 1 week for a wound check Return to clinic in 6 weeks with surgeon Minimize narcotic use. Wean off and discontinue soon as possible. Activities as tolerated. No strenuous activity. Outpatient physical therapy as scheduled. Ice and elevate the operative extremity. No restriction on ice.
== END 2024-09-30 11:15 | disposition home or self-care (01) | DRG 470 ==
LOC: OR 15:45 → MEDSURG 15:45
PROVIDERS: Admitting Provider Family Medicine; PCP Nurse Practitioner Family; Visit Provider Orthopaedic Surgery
PROC: 0SRD0J9 Replacement of Left Knee Joint with Synthetic Substitute, Cemented, Open Approach (ICD-10-PCS; CPT 27447; principal; 2024-09-28 11:15)
DX: M17.12 Unilateral primary osteoarthritis, left knee (principal); Q61.3 Polycystic kidney, unspecified; G89.18 Other acute postprocedural pain; G47.33 Obstructive sleep apnea (adult) (pediatric); Z79.82 Long term (current) use of aspirin; R00.0 Tachycardia, unspecified; R09.02 Hypoxemia; R11.0 Nausea; R91.8 Other nonspecific abnormal finding of lung field; I10 Essential (primary) hypertension; K21.9 Gastro-esophageal reflux disease without esophagitis; E78.5 Hyperlipidemia, unspecified
CPT/HCPCS: 01402; 36415; 64447; 64454; 71275; 73560; 76942; 80048; 82565; 84132; 84295; 84484; 84520; 85025; 85610; 85730; 93005; 93971; 94761; 97110; 97116; 97162; 97165; 97530; 97535; A9270; C1776; J0665; J0690; J1171; J2250; J2371; J2405; J2704; J3010; J7120; Q9967

== ENCOUNTER 2024-10-06 09:09 | Emergency (ER) | payer OTHER, SELFPAY ==
--- NOTE | 2024-10-06 09:10 | CRLHL7_ITS ---
For Patients: As a result of the Century Cures Act, medical imaging exams and procedure reports are released immediately into your electronic medical record. You may view this report before your referring provider. If you have questions, please contact your health care provider. INDICATION: Dyspnea. TKA 1 week prior. COMPARISON: September 29, 2024 TECHNIQUE: : CT examination of the chest was performed with the uneventful intravenous administration of 95 cc of Isovue 370 while thin axial sections were obtained from above the apices of the lungs to the lung bases. The examination was timed as a pulmonary artery angiogram. Please note that all CT scans at this facility use dose modulation, iterative reconstruction, and/or weight-based dosing when appropriate to reduce radiation dose to as low as reasonably achievable. FINDINGS: : HEART and MEDIASTINUM: The heart size is normal. There is no mediastinal or hilar adenopathy or mass. There is no pericardial effusion. PULMONARY ARTERIAL CIRCULATION: There is no visible intraluminal filling defect to suggest pulmonary embolus. LUNGS and PLEURAL SPACES: Mild ground-glass primarily in a dependent and perifissural distribution. This is probably largely due to atelectasis and has improved since the prior study. No focal consolidation or infiltrate. No pleural effusion or pneumothorax. There are scattered small nodules bilaterally. These are mainly in the 1-3 millimeter range. The largest is in the right lower lobe measuring 5 millimeters on series 5, image 112. These are unchanged. Follow-up as per Fleischner society guidelines. Consider a 12 month follow-up CT. VISUALIZED UPPER ABDOMEN: Numerous low-density hepatic lesions likely cysts. The kidney is present with multiple cysts and some hyperdense cysts. This pattern is usually due to polycystic kidney disease with associated hepatic involvement. OSSEOUS STRUCTURES: Age-appropriate appearance. No acute fracture or destructive process. TUBES and LINES: None. IMPRESSION: 1. There is no finding of pulmonary embolus. 2. Basilar and perifissural opacities likely due to atelectasis. Aeration of the lungs has improved since September 29, 2024. No focal consolidation, infiltrate or mass. No pleural effusion or pneumothorax. 3. Small scattered nodules in the 1-5 millimeter range. These were noted September 29, 2024. Consider 12 month follow-up CT as per Fleischner society guidelines. 4. Upper abdominal findings probably related to polycystic kidney disease with hepatic involvement Please note that all CT scans at this facility use dose modulation, iterative reconstruction, and/or weight-based dosing when appropriate to reduce radiation dose to as low as reasonably achievable. Dictated by Bret Alcantar MD @ 10/06/2024 9:53:01 AM (Electronically Signed)
--- OUTSIDE RECORDS SUMMARY | 2024-10-06 09:11 | XMS_ITS | Clinical Summary ---
Author Organization [facility] Address [address] [place] [id number] Care Team Providers Care Welding Production Supervisor Name Role Phone Chelsea Hdz NP Primary Care Provider Angelica vailable Allergies Active Allergy Reactions Criticality Noted Date Comments Penicillins *Unknown - Childhood Rxn 06/18/2011 Medications atorvastatin (LIPITOR) 20 mg tablet Take 1 [...] tablet Take 81 mg by mouth. 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 Ancillary Procedure [facility] [id number] [facility] [address] [place] [address] 08/12/2024 Travel from Last 3 Months Social History Tobacco Use Types Packs/Day Years Used Date Smoking Tobacco: Never Smokeless Tobacco: Former Quit: 06/18/2008 Tobacco Cessation:Counseling Given: Yes Alcohol Use Standard Drinks/Week Comments Not Asked 0 (1 standard drink = 0.6 oz pur e alcohol) Sex and Gender Information Value Date Recorded Sex Assigned at Not on file Legal Sex Male 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 Gender Identity Not on file Sexual Orientation Not on file Obstetrics History Last Filed Vital Signs Vital Sign Reading Time Taken Comments Blood Pressure 151/92 02/06/2022 12:59 PM CDT Pulse 69 02/06/2022 12:59 PM CDT Temperature 36.6 C (97.9 F) 05/12/2019 9:41 AM CDT Respiratory Rate 18 09/24/2011 3:00 PM MULTIPLE SLIDE OPERATOR Oxygen Saturation 94% 02/06/2022 12:59 PM [...] age 18+ 1980 Hepatitis C screening for age 18-79 1980 Tetanus booster 1982 Colonoscopy through age 75 2007 Lipids for age 45-75 2007 Pneumococcal series for age 50+ (1 of 1 - PCV) 012 Zoster (shingles) series for age 50+ (1 of 2) 04/01/20 12 COVID-19 vaccine series ( - 2023- season) Influenza Vaccine (#1) 2024 RSV vaccine for adults or pr egnancy (1 - 1-dose 75+ series) 2037 Procedures Procedure Name Priority Date/Time Associated Diagnosis Comments CT CARDIAC CALCIUM SCORE ONLY WO SINGLE READ Routine 08/12/2024 8:39 AM MULTIPLE SLIDE OPERATOR Screening for cardiovascular condition from Last 3 Months Results * CT CARDIAC CALCIUM SCORE ONLY WO SINGLE READ (08/12/2024 8:39 AM MULTIPLE SLIDE OPERATOR) Anatomical Region Laterality Modality Computed Tomogra phy 08/12/2024 9:47 AM MULTIPLE SLIDE OPERATOR Narrative 08/12/2024 9:47 AM MULTIPLE SLIDE OPERATOR For Patients: As a result of the Cures Act, medical imaging exams and procedure reports are released immediately into your electronic medical record. You may view this report before your referring provider. If you have questions, please contact your health care provider. CT CARDIAC CALCIUM SCORING PATIENT HISTORY: Evaluate for coronary artery disease. REPORT: High-resolution, ECG-synchronized noncontrast computed tomography of the heart with attention to the coronary arteries was performed. Coronary calcification analyzed using Siemens calcium scoring software. These are the results of the evaluation: CT Calcium Scoring: This cardiac CT examination will provide you with a coronary artery calcium score. A coronary artery calcium score is a measurement of the amount of calcified plaque in the coronary arteries, the arteries that supply blood to the heart muscle. The coronary artery calcium score is calculated based on the number, size, and density of the calcified plaques in the coronary arteries. The amount of calcified coronary plaque has been shown to directly correlate with future risk for heart disease. The coronary artery calcium is a marker of how much plaque has accumulated in the nieves of the coronary arteries. It is not a test for blockages. This test is intended to assess cardiovascular risk in patients without symptoms. It is not intended to be a test for individuals with chest pain or other possible symptoms suggestive of heart disease. If you are having chest pain or other potential cardiovascular symptoms, see your physician. Calcium Score: Left main = 0 Left anterior descending = 0 Left circumflex = 0 Right coronary artery = 0 Total calcium score = 0 This places the patient at the 0 percentile for matched age and gender. Assessment: Your cardiac CT examination has shown no measurable calcified coronary plaque. Your coronary artery calcium score is zero. Having zero calcified plaque in the arteries that supply your heart is associated with a low risk for heart attack over the next 5 years. As discussed above, the coronary artery calcium score is intended for risk assessment in patients without cardiovascular symptoms. The low risk associated with having zero calcified plaque does not apply to individuals who are having symptoms. If you are having chest pain or other potential cardiovascular symptoms, see your physician. Recommendations: To maintain a low cardiovascular risk, we strongly recommend adherence to healthy lifestyle behaviors including: - Following a heart healthy diet focused on modest portion sizes, a high intake of fresh fruits and vegetables, whole grains, healthy fats (olive oil, nuts and seeds, avocados), and healthy proteins (unprocessed meats, fish, legumes). - Following an active lifestyle including 30-45 minutes of moderate intensity exercise 5-6 times per week - Avoidance of tobacco products. The scientific evidence would suggest that the majority of individuals with a coronary artery calcium score of zero are at low risk for a heart attack, low enough risk that they are unlikely to benefit from preventive cardiovascular medication including aspirin and the cholesterol lowering statin medications. We recommend that individuals with a coronary artery calcium score of zero avoid taking a daily aspirin to prevent heart disease, as they are unlikely to benefit from aspirin, and aspirin use is associated with a small increase in the risk of bleeding. Unless you have markedly elevated cholesterol or diabetes, the scientific evidence would suggest that individuals with a calcium score of zero can potentially avoid taking cholesterol-lowering medications for the next 3-5 years. These recommendations are generalized and may not specifically apply to you as an individual. Your primary care physician is in the best position to provide advice on your care and clinical decisions should ultimately be made by you and your physician. EXTRA-CARDIAC FINDINGS: No hilar adenopathy. The visualized portions of the lungs show no focal pulmonary opacities. No pneumothorax. Degenerative changes of the spine. No other bony or soft tissue abnormalities identified. Please note that all CT scans at this facility use dose modulation, iterative reconstruction, and/or weight-based dosing when appropriate to reduce radiation dose to as low as reasonably achievable. Dictated by Devante Mena MD @ 08/12/2024 9:47:05 AM (Electronically Signed) Procedure Note Devante Mena MD - 08/12/2024 For Patients: As a result of the Cures Act, medical imagingexams and procedure reports are released immediately into your electronicmedical record. You may view this report before your referring provider.If you have questions, please contact your health care provider. CT CARDIAC CALCIUM SCORING PATIENT HISTORY: Evaluate for coronary artery disease. REPORT: High-resolution, ECG-synchronized noncontrast computed tomographyof the heart with attention to the coronary arteries was performed. Coronary calcification analyzed using Siemens calcium scoring software.These are the results of the evaluation: CT Calcium Scoring: This cardiac CT examination will provide you with acoronary artery calcium score. A coronary artery calcium score is ameasurement of the amount of calcified plaque in the coronary arteries,the arteries that supply blood to the heart muscle. The coronary arterycalcium score is calculated based on the number, size, and density of thecalcified plaques in the coronary arteries. The amount of calcifiedcoronary plaque has been shown to directly correlate with future risk forheart disease. The coronary artery calcium is a marker of how much plaque has accumulatedin the nieves of the coronary arteries. It is not a test for blockages.This test is intended to assess cardiovascular risk in patients withoutsymptoms. It is not intended to be a test for individuals with chest painor other possible symptoms suggestive of heart disease. If you are havingchest pain or other potential cardiovascular symptoms, see yourphysician. Calcium Score: Left main = 0 Left anterior descending = 0 Left circumflex = 0 Right coronary artery = 0 Total calcium score = 0 This places the patient at the 0 percentile for matched age and gender. Assessment: Your cardiac CT examination has shown no measurable calcifiedcoronary plaque. Your coronary artery calcium score is zero. Having zero calcified plaque in the arteries that supply your heart isassociated with a low risk for heart attack over the next 5 years. As discussed above, the coronary artery calcium score is intended for riskassessment in patients without cardiovascular symptoms. The low riskassociated with having zero calcified plaque does not apply to individualswho are having symptoms. If you are having chest pain or other potentialcardiovascular symptoms, see your physician. Recommendations: To maintain a low cardiovascular risk, we strongly recommend adherence tohealthy lifestyle behaviors including: - Following a heart healthy diet focused on modest portion sizes, a highintake of fresh fruits and vegetables, whole grains, healthy fats (oliveoil, nuts and seeds, avocados), and healthy proteins (unprocessed meats,fish, legumes). - Following an active lifestyle including 30-45 minutes of moderateintensity exercise 5-6 times per week - Avoidance of tobacco products. The scientific evidence would suggest that the majority of individualswith a coronary artery calcium score of zero are at low risk for a heartattack, low enough risk that they are unlikely to benefit from preventivecardiovascular medication including aspirin and the cholesterol loweringstatin medications. We recommend that individuals with a coronary artery calcium score of zeroavoid taking a daily aspirin to prevent heart disease, as they areunlikely to benefit from aspirin, and aspirin use is associated with asmall increase in the risk of bleeding. Unless you have markedly elevated cholesterol or diabetes, the scientificevidence would suggest that individuals with a calcium score of zero canpotentially avoid taking cholesterol-lowering medications for the next 3-5years. These recommendations are generalized and may not specifically apply jatinder as an individual. Your primary care physician is in the best positionto provide advice on your care and clinical decisions should ultimately bemade by you and your physician. EXTRA-CARDIAC FINDINGS: No hilar adenopathy. The visualized portions ofthe lungs show no focal pulmonary opacities. No pneumothorax. Degenerative changes of the spine. No other bony or soft tissueabnormalities identified. Please note that all CT scans at this facility use dose modulation,iterative reconstruction, and/or weight-based dosing when appropriate toreduce radiation dose to as low as reasonably achievable. Dictated by Devante Mena MD @ 08/12/2024 9:47:05 AM (Electronically Signed) us Referral Self CT Final Result from Last 3 Months Insurance MEDICA CHOICE Care Teams Welding Production Supervisor Relationship Specialty Start Date End Date Chelsea Hdz NP [address] [place] [address] PCP - General Emergency Medicine 03/31/19
--- OUTSIDE RECORDS SUMMARY | 2024-10-06 09:11 | XMS_ITS | Encounter Summary ---
Author Organization [facility] Address [address] [place] [address] Care Team Providers Care Diagrammer Name Role Phone Elsewhere, Pcp Primary Care Provider Unavailabl e Reason for Visit * Physical Therapy (Routine) - Authorized Specialty Diagnoses / Procedures Referred By Mignon aldrich Referred To Contact Diagnoses Arthroplasty Total Knee Replacement Status Post Left Procedures PT Ongoing treatment Jorge Mcgraw M.D. [address] [place] [address] Phone: tel: fax: [facility] Region Referral ID Status Reason Start Date Expiration Date V isits Requested Visits Authorized [id number] Authorized 10/01/2024 07/20/2025 20 20 Encounter Details Date Type Department Care Team (Latest Contact Info) Description 10/04/2024 1:00 PM CDT Clinical Support Department of Rehabilitation Services in [address] [phone] Jorge Mcgraw M.D. [address] [place] [address] Feroz Miguel, P.T. [address] [place] [phone] Arthroplasty Total Knee Replacement Status Post Left Social History Tobacco Use Types Packs/Day Years Used Date Smoking Tobacco: Never Smokeless Tobacco: Never Alcohol Use Standard Drinks/Week Comments Not Currently 7 (1 standard drink = 0.6 oz pur e alcohol) Social Connection and Isolation Panel [NHANES] A nswer Date Recorded Frequency of Communication with Friends and Fami ly Not on file 03/21/2020 How often do you get togethe r with friends or relatives? Three times a week 03/21/2020 Attends Yazidism Services Not on file 03/21 Active Member of Clubs or Organizations Not on f ile 03/21/2020 Attends Club or Organization Meetings Not on vinay e 03/21/2020 Marital Status Not on file 03/21/2020 AUDIT-C Answer Date Recorded Frequency of Alcohol Consumption 4 or more times a week 07/05/2019 Average Number of Drinks 1 or 2 019 Frequency of Binge Drinking Never 06/20 Overall Financial Resource Strain (CARDIA) Answe r Date Recorded How hard is it for you to pa y for the very basics like food, housing, medical care, and heating? Not hard at all 03/21/2020 PHQ-2 Answer Date Recorded PHQ-2 Score 0 08/07/2022 [facility] - Occupational Stress Questionnaire Answer Date Recorded Feeling of Stress To some extent 07/05/2019 Exercise Vital Sign Answer Date Recorde d On average, how many days pe r week do you engage in moderate to strenuous exercise (like a brisk walk)? 3 days 03/21/2020 On average, how many minutes do you engage in exercise at this level? 40 min 03/21/2020 Hunger Vital Sign Answer Date Recorded Worried About Running Out of Food in the Last Ye ar Never true 07/05/2019 Ran Out of Food in the Last Year Never true 07/05/2019 PRAPARE - Transportation Answer Date Re corded Lack of Transportation (Medical) No 07/05/2019 Lack of Transportation (Non-Medical) No 07/05/2019 Nutrition Answer Date Recorded Nutrition: EVOO Fat Source Unknown 03/22 Nutrition: Servings of Fruits/Vegetables per Day Not on file 03/22/2023 Dental Answer Date Recorded Dental: Regular Dentist Unknown 03/22/20 23 Education Answer Date Recorded What is the highest level of school you have completed or the highest degree you have received? 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 - 10/04/2024 1:00 PM CDT Physical Therapy Outpatient Treatment Note SUBJECTIVE Luis M comes into therapy today now being approximately 6 days postop. His pain is manageable. He is now taking oxycodone and Tylenol. He just took his Tylenol before coming into therapy. He has been elevating and icing. He has been doing his exercises at home. Patient's Name: Luis M Nagel Referring Provider: Jorge cMgraw M.D. Visit Diagnosis: 1. Arthroplasty Total Knee Replacement Status Post Left Payor: MEDICA / Plan: MEDICA CARETYPE CHOICEPASSPORT PID [id number] / Product Type: PPO / No data recorded Epic Visit Count: 2 OBJECTIVE Pain: Ortho Exam TREATMENT Treatment today consisted of: We initially had patient on the treatment table in we provided passive range of motion. We are ableto obtain approximately 85?? of knee flexion. He was then on the sci fit sliding the seat forward to tolerance. We brought him back over to the treatment table in we worked on passive range of motion. We are able to obtain knee flexion to approximately 90??. There is an extension lag of approximately 4-5 degrees. He worked on some heel slides. Assessment Clinical Impression: Patient tolerated fairly well overall. He does not have quite as much swelling as he did last week.There is no significant redness noted at this time. He is still quite acute. Functional Goals and Timeframes: PT Goal #1: To increase knee flexion to 115-120 degrees with an extension to 0??. PT Goal #1 to be achieved by: 10/29/24 PT Goal #2: Patient is able to ascending/descend steps using 1 handrail independently. PT Goal #2 to be achieved by: 11/05/24 PT Goal #3: Patient is independent with home exercise program which will address mobility and progress with strength. Some of this was initiated today PT Goal #3 to be achieved by: 10/01/24 PT Goal #4: Patient is independent ambulating with a standard cane. PT Goal #4 to be achieved by: 10/29/24 Plan We will see patient once again this Friday. We asked that he take his oxycodone prior to coming in. Plan for next session: Time Spent with Patient Therapeutic Interventions Manual Therapy (min): 15 min Therapeutic Exercise (min): 15 min Time Tracking Total Timed Units (min): 30 min Total Treatment Time (min): 30 min documented in this encounter Plan of Treatment Upcoming Encounters Date Type Department Care Team (Late st Contact Info) Description 10/06/2024 10:30 AM CDT Clinical Support Department of Rehabilitation Services in [address] [phone] Jorge Mcgraw M.D. [address] [place] [phone] Feroz Miguel, P.T. [address] [place] [phone] 10/08/2024 2:00 PM CDT Clinical Support Department of Rehabilitation Services in [address] [phone] Jorge Mcgraw M.D. [address] [place] [phone] Feroz Miguel, P.T. [address] [place] [phone] documented as of this encounter Visit Diagnoses Diagnosis Arthroplasty Total Knee Replacement Status Post Left documented in this encounter Care Teams Diagrammer Relationship Specialty Start Date End Date Elsewhere, Pcp PCP - General Internal Medicine 06/08/23 documented as of this encounter
--- OUTSIDE RECORDS SUMMARY | 2024-10-06 09:11 | XMS_ITS | Clinical Summary ---
Author Organization [facility] er Address [address] [place] [address] Care Team Providers Care Inbound Telemarketer Name Role Phone Dante Howe MD Primary Care Provider [phone] Allergies Active Allergy Reactions Criticality Noted Date Comments Penicillin G Medications sildenafil (VIAGRA) 50 MG tablet Take 1 tablet (50 mg total) by mouth if needed 12/03/19 19 Active aspirin 81 MG EC tablet Take 1 tablet (81 mg total) by mouth 1 (one) time each day Active tamsulosin (FLOMAX) 0.4 MG 24 hr capsuleIndications :Benign prostatic hyperplasia with urinary frequency Take 1 capsule (0.4 mg total) by mouth 1 (one) time each day 90 capsule 1 08/08/19 21 Active Additional Information Patient not taking.Reported on 06/10/2022 atorvastatin (LIPITOR) 20 MG tabletIndications: Borderline hyperlipidemia TAKE ONE TABLET BY MOUTH EVERY DAY 90 tablet 3 03/14/20 23 Active omeprazole (PriLOSEC) [address] capsuleIndications :Gastroesophageal reflux disease without esophagitis TAKE ONE CAPSULE BY MOUTH EVERY DAY, DO NOT CRUSH OR CHEW` 90 capsule 07/20/20 24 Active Active Problems Problem Noted Date Diagnosed Date Gastroesophageal reflux disease without esophagi tis 08/27/2021 Mixed hyperlipidemia 08/27/2021 Benign prostatic hyperplasia with urinary freque ncy 08/27/2021 Other male erectile dysfunction 08/27/2021 Decreased hearing of both ears 08/27/2021 Family history of ischemic h eart disease and other diseases of the circulatory system 05/06/2017 Encounters Date Type Department Care Team Description 07/20/2024 Refill [place] [address] [place] [address] Dante Howe MD Gastroesophageal reflux disease without esophagitis from Last 3 Months Immunizations Name Administration Dates Next Due Flu Vaccine High Dose 65yrs and Older IM 017,04/25/2014 Influenza 6mo-64yrs Quad Preservative Free IM ,04/13/2014 Influenza Split 05/20/2017,04/25/2014 Influenza, Trivalent, PF 06/22/2013,06/12/2012 Influenza, Unspecified 05/20/2017,04/25/2014 Td 03/21/2000 Tdap 01/30/2022,04/12/2011 [...] at Not on file Legal Sex Male 7:40 PM CDT Gender Identity Not on file Sexual Orientation Not on file 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 Not on file Not on file Last Filed Vital Signs Vital Sign Reading Time Taken Comments Blood Pressure 143/92 01/23/2023 3:54 PM CDT Pulse 63 01/23/2023 3:54 PM CDT Temperature 36.6 C (97.9 F) 01/23/2023 3:54 PM CDT Respiratory Rate 16 01/23/2023 3:54 PM CDT [...] 1962 FIT-DNA 1962 Sigmoidoscopy 1962 iFOBT 1962 Pneumococcal Vaccine: 50+ Years (1 of 1 - PCV) 2012 Zoster Vaccines (1 of 2) 2012 COVID-19 Vaccine (1 - 2023- season) 2024 Influenza Vaccine (#1) 2024 7, 05/20/2017, 05/20/2017, Additional history exists Colonoscopy 07/03/2024 07/03/2019 Colorectal Cancer Screening 07/03/2024 DTaP,Tdap,and Td Vaccines (3 - Td or Tdap) 01/31/2032 01/30/2022, 04/12/2011, 03/21/2000 HPV Vaccines Aged Out No longer eligi ble based on patient's age to complete this topic Insurance MEDICA Care Teams Inbound Telemarketer Relationship Specialty Start Date End Date Dante Howe MD [address] [place] [address] PCP - General 05/08/23
--- OUTSIDE RECORDS SUMMARY | 2024-10-06 09:11 | XMS_ITS | Clinical Summary ---
Author Organization [facility] Address [address] [place] [address] Care Team Providers Care Overhead Crane Technician Name Role Phone Elsewhere, Pcp Primary Care Provider Unavailabl e Source Comments Patient records contain information from all sites at [facility]. For routine questions regarding patient records, call [phone] during business hours, M-F 8:00 AM - 5:00 PM Central Time. Record requests for emergency care only can be directed to [phone] at any time.[facility] Allergies Active Allergy Reactions Criticality Noted Date Comments Penicillins Other (see comments) 01/03/2011 Medications OMEPRAZOLE ORAL TAKE ONE CAPSULE BY MOUTH EVERY DAY 4 Active atorvastatin (LIPITOR) 20 mg tablet Take 1 tablet (20 mg total) by mouth daily. 90 tablet 4 9 Active tamsulosin (FLOMAX) 0.4 mg 24 hr capsule Take 1 capsule (0.4 mg total) by mouth daily. 90 capsule 4 9 Active sildenafiL (VIAGRA) 100 mg tablet One tab 1 hour before intercourse on an empty stomach. Max one tab per day. 30 tablet 11 [address] tablet Take 81 mg by mouth. Active Active Problems Problem Noted Date Diagnosed Date Hyperlipidemia 07/13/2014 Encounters Date Type Department Care Team Description 10/04/2024 1:00 PM CDT Clinical Support Department of Rehabilitation Services in [address] [place] [phone] Jorge Mcgraw M.D. Beissel, Curtis J, P.T. Arthroplasty Total Knee Replacement Status Post Left 10/01/2024 2:00 PM CDT Comprehensive Visit Department of Rehabilitation Services in [address] [phone] Jorge Mcgraw M.D. Beissel, Curtis J, P.T. Arthroplasty Total Knee Replacement Status Post Left (Primary Dx) from Last 3 Months Immunizations Immunization Administration Dates Next Due Influenza Split 05/20/2017,04/25/2014 Td (Adult), adsorbed 03/21/2000 Tdap 04/12/2011 Social History Tobacco Use Types Packs/Day Years [...] relatives? Three times a week 03/21/2020 Attends [employer] Not on file 03/21 Active Member [...] Answer Date Recorded PHQ-2 Score 0 08/07/2022 [facility] [place] of Occupat ional Health - Occupational Stress [...] Date Recorded Dental: Regular Dentist Unknown 03/22/20 Education Answer Date Recorded What is the highest level of school you have completed or the highest degree you have received? 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 Gender Identity Male 03/10/2020 8:09 AM CDT Sexual Orientation Straight 03/10/2020 8: 09 AM CDT Last Filed Vital Signs Vital Sign Reading Time Taken Comments Blood Pressure 130/92 06/08/2023 4:15 PM GUN STOCK MAKER Pulse 78 06/08/2023 4:15 PM GUN STOCK MAKER Temperature 36.2 C (97.2 F) 06/08/2023 2:01 PM GUN STOCK MAKER Respiratory Rate 16 06/08/2023 4:15 PM GUN STOCK MAKER Oxygen Saturation 96% 06/08/2023 4:15 PM GUN STOCK MAKER Inhaled Oxygen Concentration - - Weight 88.9 kg (195 lb 15.8 oz) 06/08/2023 2:01 PM GUN STOCK MAKER Height 175.3 cm (5' 9) 03/03/2022 11:2 2 AM CDT Body Mass Index 28.94 03/03/2022 11:22 AM CDT Plan of Treatment Upcoming Encounters Date Type Department Care Team (Late st Contact Info) Description 10/06/2024 10:30 AM CDT Clinical Support Department of Rehabilitation Services in [address] [phone] Jorge Mcgraw M.D. [address] [place] [phone] Feroz Miguel, P.T. [address] [place] [phone] 10/08/2024 2:00 PM CDT Clinical Support Department of Rehabilitation Services in [address] [place] [phone] Jorge Mcgraw M.D. [address] [facility] [place] [phone] Feroz Miguel, P.TJeet [address] [place] [address] [place] [phone] Health Maintenance Due Date Last Done Comments CT Colonography 1962 Cologuard 1962 Pneumococcal vaccine (50+ years) (1 of 1 - PCV) 2012 COVID-19 Vaccine (1 - 2023- season) 2024 Influenza Vaccine (#1) 2024 7, 05/06/2017, 04/25/2014, Additional history exists Lipid (Cholesterol) Screening 07/07/2024 07/07/2019, 10/15/2017, 05/16/2017, Additional history exists Colonoscopy 07/08/2024 07/08/2019, 06/20, 10/15/2017, Additional history exists Colorectal Cancer Surveillance 07/08/2024 Depression Screening (Annual PHQ-2) 07/21/2024 Zoster Vaccines (2 of 2) 10/01/2024 08/06/2024 Fasting Glucose for Diabetes Screening 06/08/2026 06/08/2023, 07/07/2019, 10/15/2017, Additional history exists DTaP,Tdap,and Td Vaccines (3 - Td or Tdap) 01/31/2032 01/30/2022, 04/12/2011, 03/21/2000 HIV Screening Completed 10/15/2017 Hepatitis C Screening Completed 10/15/2017 IPV Vaccines Aged Out No longer eligi ble based on patient's age to complete this topic Medical Devices Implanted Type Area Database Tester Device Identifier Shelf Expiration Date Model / Serial / Lot Hardware E.G. Pins/Screws/Ro ds-05/12/2019 Implanted:10/2 09/2018 (Quantity not on file) Hardware e.g. pins/screws/r ods Foot Description:Rt toe- pin Procedures Procedure Name Priority Date/Time Associated Diagnosis Comments COMPREHENSIVE METABOLIC PANEL, S/P STAT 06/08/2023 2:18 PM GUN STOCK MAKER COLONOSCOPY Routine 07/08/2019 10:08 AM GUN STOCK MAKER Screening Cancer Colon LIPID PANEL, S Routine 07/07/2019 12:30 PM GUN STOCK MAKER Multisystem Laboratory Testing Adult HCV AB SCRN W/REFLEX TO HCV PCR, S Routine 10/15/2017 8:32 AM CDT HIV-1/-2 AG AND AB SCREEN Routine 10/15/2017 8:32 AM CDT from Last 3 Months or Most Recently Relevant to Health Maintenance Results * Comprehensive Metabolic Panel (06/08/2023 2:18 PM GUN STOCK MAKER) Potassium, P 4.5 3.6 - 5.2 mmol/L 06/08/2023 2:40 PM GUN STOCK MAKER CNFL Sodium, P 137 135 - 145 mmol/L 06/08/2023 2:40 PM GUN STOCK MAKER CNFL Chloride, P 103 98 - 107 mmol/L 06/08/2023 2:40 PM GUN STOCK MAKER CNFL Bicarbonate, P 24 22 - 29 mmol/L 06/08/2023 2:40 PM GUN STOCK MAKER CNFL Anion Gap, P 10 7 - 15 06/08/2023 2:40 PM GUN STOCK MAKER CNFL BUN (Blood Urea Nitrogen), P 18 8 - 24 mg/dL 06/08/2023 2:40 PM GUN STOCK MAKER CNFL Creatinine 0.92 0.74 - 1.35 mg/dL 06/08/2023 2:40 PM GUN STOCK MAKER CNFL Estimated GFR (eGFR) >90 >=60 mL/min/BS A 06/08/2023 2:40 PM GUN STOCK MAKER CNFL Comment: Estimated GFR calculated using the 2020 CKD_EPI creatinine equation. Calcium, Total, P 9.3 8.8 - 10.2 mg/dL 06/08/2023 2:40 PM GUN STOCK MAKER CNFL Glucose, P 101 70 - 140 mg/dL 06/08/2023 2:40 PM GUN STOCK MAKER CNFL Protein, Total, P 6.6 6.3 - 7.9 g/dL 06/08/2023 2:40 PM GUN STOCK MAKER CNFL Albumin, P 4.2 3.5 - 5.0 g/dL 06/08/2023 2:40 PM GUN STOCK MAKER CNFL Aspartate Aminotransferase (AST), P 20 8 - 48 U/L 06/08/2023 2:40 PM GUN STOCK MAKER CNFL Alkaline Phosphatase, P 86 40 - 129 U/L 06/08/2023 2:40 PM GUN STOCK MAKER CNFL Alanine Aminotransferase (ALT), P 17 7 - 55 U/L 06/08/2023 2:40 PM GUN STOCK MAKER CNFL Bilirubin, Total, P 0.8 0.0 - 1.2 mg/dL 06/08/2023 2:40 PM GUN STOCK MAKER CNFL Blood (Blood, Venous) 06/08/2023 2:18 PM GUN STOCK MAKER 06/08/2023 2:20 PM GUN STOCK MAKER Jace Fagan P.A.-C., P.A. LAB BLOOD ADD-ON F inal Result [facility] [address] [place] [address], [facility] [place] [address] * Lipid Panel (07/07/2019 12:30 PM GUN STOCK MAKER) [facility] Cholesterol, Total 131 mg/dL 2018 2:05 PM GUN STOCK MAKER DTL Comment: ----REFERENCE VALUE---- Desirable: < 200 Borderline high: 200 - 239 High: > or = 240 Triglycerides 77 mg/dL 07/07/2019 2:05 PM GUN STOCK MAKER DTL Comment: ----REFERENCE VALUE---- Normal: <150 Borderline high: 150-199 High: 200-499 Very high: > or =500 Cholesterol, HDL, S 44 >=40 mg/dL 07/07/2019 2:05 PM GUN STOCK MAKER DTL Calculated LDL 72 mg/dL 07/07/2019 2:05 PM GUN STOCK MAKER DTL Comment: ----REFERENCE VALUE---- Desirable: <100 Above Desirable: 100-129 Borderline high: 130-159 High: 160-189 Very high: > or =190 Cholesterol, Non-HDL, Calculated 87 mg/dL 07/07/2019 2:05 PM GUN STOCK MAKER DTL Comment: ----REFERENCE VALUE---- Desirable: <130 Above Desirable: 130-159 Borderline high: 160-189 High: 190-219 Very high: > or =220 Blood (Blood, Venous) 07/07/2019 12:30 PM GUN STOCK MAKER 07/07/2019 12:55 PM GUN STOCK MAKER Iwona Mendoza M.D., M.H.A. LAB BLOOD ADD-ON Fi nal Result Performing Organization Address [facility] Co de Phone Number [facility] [address] [facility] [address] [place] [address] * HIV-1/-2 Ag and Ab Screen (10/15/2017 8:32 AM CDT) HIV-1/-2 Ag and Ab Screen, S Negative Negative [facility] Comment: Negative result does not rule out HIV infection. If acute HIV infection is suspected in a high-risk individual, submit plasma specimen for HIV-1 RNA quantification test (HIVDQ) and/or HIV-2 DNA/RNA test (FHV2Q). 10/15/2017 8:32 AM CDT 10/15/2017 8:32 AM CDT Mike Arenas M.D. LAB MICROBIOLOGY - BLOOD O RDERABLES Final Result Performing Organization Address City/[facility]/ZIP Co de Phone Number [facility] [address] * HCV Ab Scrn w/Reflex to HCV PCR, S (10/15/2017 8:32 AM CDT) HCV Ab Screen, S Negative Negative [facility] Comment:Zdxlvi-pj-swgrsk rat io is <1.00. 10/15/2017 8:32 AM CDT 10/15/2017 8:32 AM CDT Mike Arenas M.D. LAB MICROBIOLOGY - BLOOD O RDERABLES Final Result [facility] [address] [place] [address], [facility] from Last 3 Months or Most Recently Relevant to Health Maintenance Insurance MEDICA Care Teams Overhead Crane Technician Relationship Specialty Start Date End Date Elsewhere, Pcp PCP - General Internal Medicine 06/08/23
--- OUTSIDE RECORDS SUMMARY | 2024-10-06 09:11 | XMS_ITS | Encounter Summary ---
Author Organization [facility] Address [address] [place] [address] Care Team Providers Care Grants Administrator Name Role Phone Elsewhere, Pcp Primary Care Provider Unavailabl e Reason for Referral * Physical Therapy (Routine) - Authorized Specialty Diagnoses / Procedures Referred By Mignon aldrich Referred To Contact Diagnoses Arthroplasty Total Knee Replacement Status Post Left Procedures PT Ongoing treatment Jorge Mcgraw M.D. [address] [place] [address] Phone: tel: fax: [facility] Region Referral ID Status Reason Start Date Expiration Date V isits Requested Visits Authorized [id number] Authorized 10/01/2024 07/20/2025 20 20 Reason for Visit * Appointment Request (Routine) - Pending Review Specialty Diagnoses / Procedures Referred By Mignon aldrich Referred To Contact Physical Therapy Diagnoses Presence Of Left Artificial Knee Joint Jorge Mcgraw M.D. [address] [place] [address] Phone: tel: fax: Referral ID Status Reason Start Date Expiration Date V isits Requested Visits Authorized [id number] Pending Review 08/10/2024 11/10/2025 1 1 Encounter Details Date Type Department Care Team (Latest Contact Info) Description 10/01/2024 2:00 PM CDT Comprehensive Visit Department of Rehabilitation Services in [address] [place] [phone] Jorge Mcgraw M.D. [address] [place] [address] Feroz Miguel PJeetTJeet [address] [place] [address] Arthroplasty Total Knee Replacement Status Post Left (Primary Dx) Social History Tobacco Use Types Packs/Day Years [...] relatives? 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 - 10/01/2024 2:00 PM CDT Physical Therapy Outpatient Evaluation/Treatment SUBJECTIVE Patient's Name: Luis M Buenojohn Nagel Referring Provider: Jorge Mcgraw M.D. Visit Diagnosis: 1. Arthroplasty Total Knee Replacement Status Post Left Reason for Referral: Patient is now approximately 3 days status post left Total Knee Arthroplasty Onset Date: 09/28/24 Payor: MEDICA / Plan: MEDICA CARET[employer] CHOICEPASSPORT PID [id number] / Product Type: PPO / Epic Visit Count: 1 PERTINENT MEDICAL / SURGICAL HISTORY: Problem List[1] Surgical History[2] . History of Present Illness: This is a 64-year-old gentleman who comes into therapy now being approximately 3 days status post left Total Knee Arthroplasty presently, he rates his pain as an 8/10. He stayed in the hospital overnight secondary to some complications with desaturation. Presently, he is feeling better overall. Hiswife is present to help assist in his cares. He tried to sleep in a bed last night. However, this was too uncomfortable for him. He does have a recliner that he can use for now. He is ambulating independently with a 2 wheeled walker at home. He is alternating OxyContin and Tylenol for pain. Prior Function/Occupational Profile: Family/Caregiver Present: Yes Patient goals: OBJECTIVE REVIEW OF SYSTEMS PHYSICAL EXAM Pain: Pain Assessment Pain Score: 8 Ortho Exam Upon observation, patient ambulated into therapy independently using a 2 wheeled walker. Gabrielle's able to get up on the treatment table and go from sit to supine independently. Assessing his knee, there is a considerable amount of swelling noted at this time. Incision is covered with a protective bandage. There is some general redness around the anterior aspect of the knee. However, there was no sign of cellulitis at this time. Passively, we provided flexion to the knee. We are able to obtain approximately 92-93 degrees of flexion. There is an extension lag of approximately 5?? at this time. There is pain at pathological end range in both directions. He was able to perform heel slides. Short arc quads was more difficult. He is able to engage his quads but this was uncomfortable. He could perform shallow straight leg raises. TREATMENT Treatment today consisted of: Today, we provided passive range of motion for both knee flexion/extension. We did some light tissue massage to the anterior thigh region. We instructed with elevation and ice. We encouraged him to work on both flexion and extension. He should be doing something for mobility every hour if possible.He is only to go for short walks at this time. He should abstain from any prolonged short sitting positions. We encouraged him to work on alphabet exercises/ankle pumps. Home Exercise Program/Education: Assessment Clinical Impression: Patient presents to physical therapy with signs and symptoms consistent with being status post leftTotal Knee Arthroplasty. Rehab Potential: Patient has Good potential to achieve established physical therapy goals within the time frame outlined below, provided active participation in the physical therapy treatment plan and home program. Clinical Presentation: Stable Examination elements: 1-2 Clinical Decision Making: Low complexity clinical decision making Functional Goals and Timeframes: PT Outpatient Goals PT Goal #1: To increase knee flexion [...] #4 to be achieved by: 10/29/24 Plan Patient was educated regarding evaluative findings, diagnosis, prognosis, potential risks and benefits of rehabilitation interventions. A collaborative effort was used to establish goals and plan of care. The patient was informed of the right to make decisions regarding care, including refusal of examination or treatment or selection of services from another provider if desired. The treatment plan may be progressed or modified based upon the patient's response to treatment. Treatment Plan: Patient is going to work on these exercises at home over the weekend. We will follow up with him once again on Friday to see how he is doing. We will continue to work on mobility and eventually progress with strength. Start of Plan of Care: 10/01/2024 Number of Visits:14 visits PT Duration: 45 days PT Frequency: PT Frequency: 3 times per week Treatment interventions may include: Treatment/Interventions: Therapeutic exercise, Manual therapy Plan for next session: Time Spent with Patient Evaluations PT Eval - Low Complexity: 25 min Time Tracking Total Treatment Time (min): 25 min [1] Patient Active Problem List Diagnosis Hyperlipidemia [2] Past Surgical History: Procedure Laterality Date TONSILLECTOMY AND ADENOIDECTOMY N/A 1974 Tonsillectomy and adenoidectomy documented in this encounter Plan of Treatment Upcoming Encounters Date Type Department Care Team (Late st Contact Info) Description 10/06/2024 10:30 AM CDT Clinical Support Department of Rehabilitation Services in [address] [phone] Jorge Mcgraw M.D. [address] [place] [phone] Feroz Miguel P.T. [address] [place] [phone] 10/08/2024 2:00 PM CDT Clinical Support Department of Rehabilitation Services in [address] [phone] Jorge Mcgraw M.D. [address] [place] [address] Feroz Miguel P.T. [address] [phone] documented as of this encounter Visit Diagnoses Diagnosis Arthroplasty Total Knee Replacement Status Post Left- Primary documented in this encounter Care Teams Grants Administrator Relationship Specialty Start Date End Date Elsewhere, Pcp PCP - General Internal Medicine 06/08/23 documented as of this encounter
--- OUTSIDE RECORDS SUMMARY | 2024-10-06 09:11 | XMS_ITS | Encounter Summary ---
Author Organization [facility] er Address [address] [place] [address] Care Team Providers Care Chip Machine Operator Name Role Phone Dante Howe MD Primary Care Provider [phone] Reason for Visit * Reason Comments Med Refill Encounter Details Date Type Department Care Team (Late st Contact Info) Description 04/28/2019 Refill [place] [address] [place] [address] Tabitha López MD Gastroesophageal reflux disease, esophagitis presence not specified [...] specified documented in this encounter Care Teams Chip Machine Operator Relationship Specialty Start Date End Date Dante Howe MD [address] [facility] [address] [place] [address] PCP - General 05/08/23 documented as of this encounter
--- OUTSIDE RECORDS SUMMARY | 2024-10-06 09:11 | XMS_ITS | Encounter Summary ---
Author Organization [facility] er Address [address] [place] [address] Care Team Providers Care Cultural Historian Name Role Phone Dante Howe MD Primary Care Provider [phone] Reason for Visit * Reason Comments Med Refill Encounter Details Date Type Department Care Team (Late st Contact Info) Description 03/10/2023 Refill [place] [address] [place] [address] Tabitha López MD Borderline hyperlipidemia Social History Tobacco Use Types [...] file Not on file Not on file documented as of this [...] hyperlipidemia documented in this encounter Care Teams Cultural Historian Relationship Specialty Start Date End Date Dante Howe MD [address] [facility] [address] [place] [address] PCP - General 05/08/23 documented as of this encounter
[2024-10-06 09:13] VITALS: BP 134/88; PULSE 106; RESP 18; TEMP 36.1; O2SAT 99; BMI 27.3
[2024-10-06 09:32] VITALS: O2SAT 99
--- NOTE | 2024-10-06 09:33 | ED_ITS ---
HPI - General Adult General Chief complaint: Shortness of Breath/Dyspnea Stated complaint: Labored breathing Time Seen by Provider: 10/06/24 09:23 History of Present Illness HPI narrative: Patient is a pleasant 64 year white male from [place] who had his knee replaced about a week ago with Dr. Reynolds, orthopedics. Patient reports he had some shortness of breath at the time of hospitalization, got better, it seemed to be little bit worse today. He called the [facility], and they asked him to come to the ER. He does not really describe any significant lower extremity swelling although his knees been swollen normal postoperatively. No redness or warmth of the knee. He has been doing PT and walking across the house. He has had a rotator cuff repair in the past as well. He has had a history of tachycardia, otherwise been pretty healthy other than hyperlipidemia allergic rhinitis and G ERd . Patient denies cough denies viral syndrome or fever, no throat pain. He has been not coughing. He has had no anterior chest pain. He reports that shortness of breath is with egg mostly with exertion, not so much with rest. He feels better when he is resting. His O2 sat here is 99%. He is on aspirin for blood thinner. Related Data Home Medications ?Medication ?Instructions ?Recorded ?Confirmed aspirin 81 mg capsule 81 mg PO DAILY 02/06/22 10/06/24 atorvastatin 20 mg tablet 20 mg PO HS 09/28/24 10/06/24 losartan 25 mg tablet (Cozaar) 25 mg PO DAILY 09/28/24 10/06/24 Previous Rx's ?Medication ?Instructions ?Recorded tadalafil 10 mg tablet (Cialis) 10 mg PO QDAY PRN sexual activity 08/06/24 #8 tabs acetaminophen 500 mg capsule 500 - 1,000 mg (1 - 2 x 500 mg) PO 09/28/24 Q6H PRN pain #100 caps aspirin 81 mg chewable tablet 81 mg PO BID for DVT prophylaxis 09/28/24 (Aspirin Childrens) 30 days #60 tabs sennosides 8.6 mg tablet (Senna 17.2 mg (2 x 8.6 mg) PO BID PRN 09/28/24 Lax) constipation #100 tabs oxycodone 5 mg tablet 2.5 - 5 mg (0.5 - 1 x 5 mg) PO 10/06/24 Q4-6H PRN Pain #42 tabs Allergies Allergy/AdvReac Type Severity Reaction Status Date / Time Penicillins Allergy Verified 10/06/24 09:18 Review of Systems Status of ROS: Reports: 6 or more systems reviewed and unremarkable except as noted in History and below PFSH [facility] Medical History Lung nodule, multiple ?R91.8 - Other nonspecific abnormal finding of lung field (ICD-10) Varicella ?B01.9 - Varicella without complication (ICD-10) Surgical History History of total left knee replacement (09/28/24) ?Z96.652 - Presence of left artificial knee joint (ICD-10) History of tonsillectomy ?Z90.89 - Acquired absence of other organs (ICD-10) History of bunionectomy (05/10/19) ?Z98.890 - Other specified postprocedural states (ICD-10) History of ankle surgery ?Z98.890 - Other specified postprocedural states (ICD-10) H/O rotator cuff surgery (2013) ?Z98.890 - Other specified postprocedural states (ICD-10) H/O nasal septoplasty (07/02/11) ?Z98.890 - Other specified postprocedural states (ICD-10) Family History Father Heart disease Hx of CABG, Onset Age: 50 Stroke Kidney disease Daughter Celiac disease Paternal Grandfather Heart disease Sister Kidney disease Social History Narrative: former chewing tobacco -Kim What is your current living situation?: I presently have a place to live Problems where you live: no known problems In the past 12 months, utilities in danger of being shut off: no In past 12 months, lack of transportation kept you from medical appts, meetings, work, or getting things needed for daily living: no In the past 12 mos, have been you worried that your food would run out before you had money to buy more?: never true In the past 12 mos, the food you bought just didn't last and you didn't have money to buy more?: never true Highest level of school completed/degree received: Associate degree: occupational, technical, vocational program Smoking Status: Never smoker Do you use any of these nicotine containing products: None Second hand tobacco smoke exposure: No How often do you have a drink containing alcohol: 4 or more times a week Alcohol type: beer, wine and hard liquor How many standard drinks containing alcohol do you have on a typical day: 1 or 2 How often do you have six or more drinks on one occasion: Never AUDIT-C Alcohol total score: 4 Non-prescribed substance use: denies use Caffeine: Yes How often does anyone, including family, friends and others, physically hurt you : never How often does anyone, including family, friends and others, insult or talk down to you: never How often does anyone, including family, friends and others, threaten you with harm: never How often does anyone, including family, friends and others, scream or curse at you: never service: No Exam Narrative: Exam Narrative: Objective: The patient is alert orient x3, no distress, noncyanotic Vital signs look largely within normal limits. As mention his O2 sat is excellent at 98% on room air Alert or x3 No facial asymmetry No cyanosis, no increased respiratory effort Lungs are clear Heart rhythm regular heart murmur Abdomen benign soft Extremities without edema in the lower extremities, he has normal postoperative swelling of the left knee. No redness or warmth erythema. Neurologic is nonfocal upper lower extremities Const: Vital Signs, click to edit/add: Vital Signs - 24 hr 10/06/24 09:13 10/06/24 09:32 10/06/24 10:45 Temperature 97 F L Pulse Rate [Right Pulse Oximeter] 106 H 103 H Respiratory Rate 18 32 H Blood Pressure [Ri ght Upper Arm] 134/88 150/101 H Pulse Oximetry 99 99 98 Oxygen Delivery Me thod Room Air Room Air 10/06/24 10:56 Temperature Pulse Rate [Right Pulse Oximeter] 82 Respiratory Rate 12 Blood Pressure [Ri ght Upper Arm] 133/82 Pulse Oximetry 94 Oxygen Delivery Me thod Room Air Course Vital Signs Vital signs: Initial Vital Signs Temperature 97 F L 10/06/24 09:13 Temperature Source Temporal Artery Scan 10/06/24 09:13 Pulse Rate 106 H 10/06/24 09:13 Pulse Rhythm Regular 10/06/24 09:13 Pulse Strength 3+ Normal 10/06/24 09:13 Respiratory Rate 18 10/06/24 09:13 Blood Pressure 134/88 10/06/24 09:13 Blood Pressure Mean 103 10/06/24 09:13 Blood Pressure Position Sitting 10/06/24 09:13 Pulse Oximetry 99 10/06/24 09:13 Oxygen Delivery Method Room Air 10/06/24 09:13 Vital Signs Temperature 97 F L 10/06/24 09:13 Pulse Rate 106 H 10/06/24 09:13 Respiratory Rate 18 10/06/24 09:13 Blood Pressure 134/88 10/06/24 09:13 Pulse Oximetry 99 10/06/24 09:13 Oxygen Delivery Method Room Air 10/06/24 09:13 Temperature 97 F L 10/06/24 09:13 Pulse Rate 82 10/06/24 10:56 Respiratory Rate 12 10/06/24 10:56 Blood Pressure 133/82 10/06/24 10:56 Pulse Oximetry 94 10/06/24 10:56 Oxygen Delivery Method Room Air 10/06/24 10:56 Medical Decision Making [facility] Narrative Medical decision making narrative: 64-year-old white male with a history of total knee replacement on the left about a week ago with concern of shortness of breath intermittently, mostly with exertion. I think at this time will rule out acute coronary syndrome, rule out PE given his postop status. Will get a Doppler scan of his lower extremities will get a CT scan of his chest with contrast to rule out PE. Will get lab studies. IV fluid. Oximetry, disposition pending findings. Addendum 11:20 a.m.: The patient's CT scan of the chest shows no pulmonary emboli or pneumonia. There is some small nodules, they recommend getting a CT in a year this was recommended to the patient. He otherwise has an EKG that shows normal sinus rhythm no acute ST T wave changes by my read, his troponin is negative, his labs look reassuring. His D-dimer is positive but he just had surgery. His liver function tests are minimally elevated, I would recommend he hold back on his Tylenol containing narcotic if he can. He can sure use it but not maybe full dose. Recommend update Ortho or return to ED if problems or concerns. He will continue his PT. He will increase his spirometry from what he is doing now. Lab Data Labs: Lab Results 10/06/24 10/06/24 Range/Units 09:11 09:25 WBC 9.27 (4.50-11.00) K/uL RBC 4.85 (4.30-5.90) m/uL Hgb 13.8 (13.5-17.5) gm/dL Hct 40.6 (37.0-53.0) % MCV 84 (80-100) fL MCH 29 (26-34) pg MCHC 34 (32-36) gm/dL RDW Coeff of Macy 12.9 (11.5-15.5) % Plt Count 439 (140-440) K/uL Neut % (Auto) 70.2 (42.0-72.0) % Lymph % (Auto) 17.5 L (20-44) % [place] % (Auto) 9.1 (0.0-11.0) % Eos % (Auto) 2.6 (0.0-7.0) % Baso % (Auto) 0.3 (0.0-3.0) % Neut # (Auto) 6.51 (1.7-7.0) K/uL Lymph # (Auto) 1.60 (0.90-2.90) K/uL [place] # (Auto) 0.80 (0.00-0.90) K/UL Eos # (Auto) 0.24 (0.00-0.50) K/uL Baso # (Auto) 0.03 (0.00-0.30) K/uL Abs Immat Gran (auto) 0.03 (0.00-0.30) K/uL Imm/Tot Granulo (auto) 0.3 % INR 0.96 (0.91-1.10) APTT 32 (23-33) Seconds D-Dimer Quant (PE/DVT) 4.42 H (0.00-0.50) ug/ml Sodium 134 L (135-149) mmol/L Potassium 4.3 (3.6-5.1) mmol/L Chloride 99 (96-114) mmol/L Carbon Dioxide 24 (20-32) mmol/L Anion Gap 11 (7-15) mEq/L BUN 21 (7-30) mg/dL Creatinine 1.0 (0.5-1.5) mg/dL Estimated Creat Clear 79.08 Estimated GFR 85 ml/min Glucose 108 (60-115) mg/dL Lactate 2.9 H (0.5-1.9) mmol/L Calcium 9.8 (8.4-10.6) mg/dL Total Bilirubin 2.3 H (0.1-1.5) mg/dL Direct Bilirubin 0.6 H (0.0-0.5) mg/dL AST 93 H (12-35) U/L ALT 199 H (4-50) U/L Alkaline Phosphatase 165 H (40-150) U/L Total Protein 7.5 (6.0-8.3) g/dL Albumin 4.5 (3.3-5.0) g/dL SARS-CoV-2 (PCR) Negative SARS-CoV-2 (Negative) Influenza Type A (PCR) Negative PCR FLU A (Negative) Influenza Type B (PCR) Negative PCR FLU B (Negative) RSV (PCR) Negative PCR RSV (Negative) POC Troponin I 0.00 L (0.01-0.04) ng/ml Discharge Plan Discharge Clinical Impression: Mild shortness of breath, History of left knee replacement Patient Disposition: Home w/ Parent or Adult Condition: Stable Additional Instructions: Continue PT, increased spirometry, use your pain medications sparingly as her liver tests were just slightly elevated. Get a repeat CT scan of the chest in 1 year, follow-up with orthopedics as scheduled, return to the ED sooner problems or concerns. Activity Level: Light activity Discharge Diet: Regular Prescriptions: No Action oxycodone 5 mg tablet 2.5 - 5 mg PO Q4-6H MDD 6 tabs per day PRN (Reason: Pain) Qty: 42 0RF Rx Instructions: Minimize. Discontinue as soon as possible tadalafil [Cialis] 10 mg tablet 10 mg PO QDAY PRN (Reason: sexual activity) Qty: 8 6RF Rx Instructions: administer approximately 30min before sexual activity; do not use more than 1 dose per 24hrs atorvastatin 20 mg tablet 20 mg PO HS losartan [Cozaar] 25 mg tablet 25 mg PO DAILY sennosides [Senna Lax] 8.6 mg Tablet 17.2 mg PO BID PRN (Reason: constipation) Qty: 100 0RF aspirin [Aspirin Childrens] 81 mg tablet,chewable 81 mg PO BID 30 Days Qty: 60 0RF acetaminophen 500 mg capsule 500 - 1,000 mg PO Q6H MDD 4000mg per day PRN (Reason: pain) Qty: 100 0RF aspirin 81 mg capsule 81 mg PO DAILY Follow Up/Referrals: Chelsea Hdz APRN, SALES SERVICE COORDINATOR [Primary Care Provider] - Stand Alone Forms: dscovered Info Instructions
[2024-10-06 09:36] LABS: Basophils Absolute Auto 0.03 K/uL (0.00-0.30); Basophils Percent Auto 0.3 % (0.0-3.0); Eosinophils Absolute Auto 0.24 K/uL (0.00-0.50); Eosinophils Percent Auto 2.6 % (0.0-7.0); Hematocrit 40.6 % (37.0-53.0); Hemoglobin* 13.8 gm/dL (13.5-17.5); Immature Granulocytes Abs Auto 0.03 K/uL (0.00-0.30); Immature Granulocytes Pct Auto 0.3 %; Lymphocytes Percent Auto 17.5 % (20-44); Mean Corpuscular HGB Conc 34 gm/dL (32-36); Mean Corpuscular Hemoglobin 29 pg (26-34); Mean Corpuscular Volume 84 fL (80-100); Monocytes Percent Auto 9.1 % (0.0-11.0); Neutrophils Absolute Auto 6.51 K/uL (1.7-7.0); Neutrophils Percent Auto 70.2 % (42.0-72.0); Platelet Count* 439 K/uL (140-440); RDW Coefficient of Variation % 12.9 % (11.5-15.5); Red Blood Count 4.85 m/uL (4.30-5.90); White Blood Count* 9.27 K/uL (4.50-11.00)
--- NOTE | 2024-10-06 09:38 | CRLHL7_ITS ---
For Patients: As a result of the Century Cures Act, medical imaging exams and procedure reports are released immediately into your electronic medical record. You may view this report before your referring provider. If you have questions, please contact your health care provider. INDICATION: Shortness of breath, recent left knee surgery TECHNIQUE: Ultrasound venous duplex bilateral lower extremity. Compression venous exam was performed using ma-scale, color Doppler, and spectral Doppler analysis. COMPARISON: Left lower extremity venous ultrasound 09/29/2024 FINDINGS: Deep veins: Sonographic imaging demonstrates the bilateral common femoral, deep femoral, superficial femoral, popliteal, posterior tibial veins to be fully compressible with normal color Doppler blood flow. Superficial veins: Greater saphenous veins are fully compressible. No popliteal cyst. IMPRESSION: Normal bilateral lower extremity venous ultrasound, no sign of deep venous thrombosis. Dictated by Heydi Mohamud MD @ 10/06/2024 11:08:15 AM (Electronically Signed)
[2024-10-06 09:45] LABS: Slide Review Reflex No
[2024-10-06 09:52] LABS: Albumin* 4.5 g/dL (3.3-5.0); Chloride* 99 mmol/L (96-114); Potassium* 4.3 mmol/L (3.6-5.1); Sodium* 134 mmol/L (135-149)
[2024-10-06 09:54] LABS: Blood Urea Nitrogen* 21 mg/dL (7-30); Est. Creatinine Clearance* 79.08; Estimated Glomerular Filt Rate 85 ml/min
[2024-10-06 09:55] LABS: Alanine Aminotransferase* 199 U/L (4-50); Alkaline Phosphatase* 165 U/L (40-150); Anion Gap 11 mEq/L (7-15); Aspartate Amino Transferase* 93 U/L (12-35); Bilirubin Direct* 0.6 mg/dL (0.0-0.5); Bilirubin Total* 2.3 mg/dL (0.1-1.5); Calcium* 9.8 mg/dL (8.4-10.6); Carbon Dioxide* 24 mmol/L (20-32); Glucose* 108 mg/dL (60-115); Total Protein* 7.5 g/dL (6.0-8.3)
[2024-10-06 09:57] LABS: INR 0.96 (0.91-1.10); Prothrombin Time 13.6 Seconds
[2024-10-06 10:07] LABS: D Dimer Quantitative* 4.42 ug/ml (0.00-0.50)
[2024-10-06 10:18] LABS: PCR FLU A Negative PCR FLU A (Negative); PCR FLU B Negative PCR FLU B (Negative); PCR RSV Negative PCR RSV (Negative); Partial Thromboplastin Time* 32 Seconds (23-33); SARS PCR* Negative SARS-CoV-2 (Negative)
[2024-10-06 10:22] LABS: Lactate* 2.9 mmol/L (0.5-1.9)
--- OUTSIDE RECORDS SUMMARY | 2024-10-06 10:39 | XMS_ITS | Encounter Summary ---
Author Organization [facility] Address [address] [place] [address] Care Team Providers Care Medical Health Researcher Name Role Phone Elsewhere, Pcp Primary Care Provider Unavailabl e Reason for Referral * Physical Therapy (Routine) - Authorized Specialty Diagnoses / Procedures Referred By Mignon aldrich Referred To Contact Diagnoses Arthroplasty Total Knee Replacement Status Post Left Procedures PT Ongoing treatment Jorge Mcgraw M.D. [address] [place] [address] Phone: tel: fax: [facility] Region Referral ID Status Reason Start Date Expiration Date V isits Requested Visits Authorized [id number] Authorized 10/01/2024 07/20/2025 20 20 Reason for Visit * Appointment Request (Routine) - Pending Review Specialty Diagnoses / Procedures Referred By Mignon aldrich Referred To Contact Physical Therapy Diagnoses Presence Of Left Artificial Knee Joint Jorge Mcgraw M.D. [address] [place] [address] Phone: tel: fax: Referral ID Status Reason Start Date Expiration Date V isits Requested Visits Authorized [id number] Pending Review 08/10/2024 11/10/2025 1 1 Encounter Details Date Type Department Care Team (Latest Contact Info) Description 10/01/2024 2:00 PM CDT Comprehensive Visit Department of Rehabilitation Services in [address] [place] [address] Jorge Mcgraw M.D. [address] [facility] [place] [address] Feroz Miguel PJeetTJeet [id number] [place] [address] Arthroplasty Total Knee Replacement Status Post [...] relatives? Three times a week 03/21/2020 Attends Jainism Services Not on file 03/21 Active Member [...] Answer Date Recorded PHQ-2 Score 0 08/07/2022 [facility] [place] of Occupat ional Health - Occupational Stress [...] on file Legal Sex Male 2:14 AM [employer] Gender Identity Male 03/10/2020 8:09 AM CDT [...] MEDICA / Plan: MEDICA CARETYPE CHOICEPASSPORT PID [id number] / Product Type: PPO / Epic Visit [...] Care Team (Late st Contact Info) Description 10/08/2024 2:00 PM CDT Clinical Support Department of Rehabilitation Services in [address] [phone] Jorge Mcgraw M.D. [address] [place] [phone] Feroz Miguel, P.T. [address] [place] [phone] documented as of this encounter Visit Diagnoses Diagnosis Arthroplasty Total Knee Replacement Status Post Left- Primary documented in this encounter Care Teams Medical Health Researcher Relationship Specialty Start Date End Date Elsewhere, Pcp PCP - General Internal Medicine 06/08/23 documented as of this encounter
--- OUTSIDE RECORDS SUMMARY | 2024-10-06 10:39 | XMS_ITS | Clinical Summary ---
Author Organization [facility] Address [address] [place] [address] Care Team Providers Care Row Boss Hoeing Name Role Phone Elsewhere, Pcp Primary Care Provider Unavailabl e Source Comments Patient records contain information from all sites at [facility]. For routine questions regarding patient records, call [phone] during business hours, M-F 8:00 AM - 5:00 PM Central Time. Record requests for emergency care only can be directed to [phone] at any time.[facility] Allergies Active Allergy Reactions Criticality Noted Date [...] Clinical Support Department of Rehabilitation Services in [address] [place] [phone] Jorge Mcgraw M.D. Beissel, Curtis J, P.T. Arthroplasty Total Knee Replacement Status Post Left 10/01/2024 2:00 PM CDT Comprehensive Visit Department of Rehabilitation Services in [address] [phone] Jorge Mcgraw M.D. Beissel, Curtis [...] relatives? Three times a week 03/21/2020 Attends [employer] Services Not on file 03/21 Active Member [...] Answer Date Recorded PHQ-2 Score 0 08/07/2022 [facility] [place] of Occupat ional Health - Occupational Stress [...] on file Legal Sex Male 2:14 AM LEASING AGENT Gender Identity Male 03/10/2020 8:09 AM CDT Sexual Orientation Straight 03/10/2020 8: 09 AM CDT Last Filed Vital Signs Vital Sign Reading Time Taken Comments Blood Pressure 130/92 06/08/2023 4:15 PM LEASING AGENT Pulse 78 06/08/2023 4:15 PM LEASING AGENT Temperature 36.2 C (97.2 F) 06/08/2023 2:01 PM LEASING AGENT Respiratory Rate 16 06/08/2023 4:15 PM LEASING AGENT Oxygen Saturation 96% 06/08/2023 4:15 PM LEASING AGENT Inhaled Oxygen Concentration - - Weight 88.9 kg (195 lb 15.8 oz) 06/08/2023 2:01 PM LEASING AGENT Height 175.3 cm (5' 9) 03/03/2022 11:2 2 AM CDT Body Mass Index 28.94 03/03/2022 11:22 AM CDT Plan of Treatment Upcoming Encounters Date Type Department Care Team (Late st Contact Info) Description 10/08/2024 2:00 PM CDT Clinical Support Department of Rehabilitation Services in [address] [phone] Jorge Mcgraw M.D. [address] [place] [phone] Feroz Miguel, P.T. [address] [place] [phone] Health Maintenance Due Date Last Done Comments CT Colonography 1962 Cologuard 1960 Pneumococcal vaccine (50+ years) (1 of 1 - PCV) 2012 COVID-19 Vaccine (1 - season) 2024 Influenza Vaccine (#1) 2024 7, [...] this topic Medical Devices Implanted Type Area Senior Security Architect Device Identifier Shelf Expiration Date Model / Serial / Lot Hardware E.G. Pins/Screws/Ro ds-05/12/2019 Implanted:04/21 (Quantity not on file) Hardware e.g. pins/screws/r ods Foot Description:Rt toe- pin Procedures Procedure Name Priority Date/Time Associated Diagnosis Comments COMPREHENSIVE METABOLIC PANEL, S/P STAT 06/08/2023 2:18 PM LEASING AGENT COLONOSCOPY Routine 07/08/2019 10:08 AM LEASING AGENT Screening Cancer Colon LIPID PANEL, S Routine 07/07/2019 12:30 PM LEASING AGENT Multisystem Laboratory Testing Adult HCV AB SCRN W/REFLEX TO HCV PCR, S Routine 10/15/2017 8:32 AM CDT HIV-1/-2 AG AND AB SCREEN Routine 10/15/2017 8:32 AM CDT from Last 3 Months or Most Recently Relevant to Health Maintenance Results * Comprehensive Metabolic Panel (06/08/2023 2:18 PM LEASING AGENT) Potassium, P 4.5 3.6 - 5.2 mmol/L 06/08/2023 2:40 PM LEASING AGENT CNFL Sodium, P 137 135 - 145 mmol/L 06/08/2023 2:40 PM LEASING AGENT CNFL Chloride, P 103 98 - 107 mmol/L 06/08/2023 2:40 PM LEASING AGENT CNFL Bicarbonate, P 24 22 - 29 mmol/L 06/08/2023 2:40 PM LEASING AGENT CNFL Anion Gap, P 10 7 - 15 06/08/2023 2:40 PM LEASING AGENT CNFL BUN (Blood Urea Nitrogen), P 18 8 - 24 mg/dL 06/08/2023 2:40 PM LEASING AGENT CNFL Creatinine 0.92 0.74 - 1.35 mg/dL 06/08/2023 2:40 PM LEASING AGENT CNFL Estimated GFR (eGFR) >90 >=60 mL/min/BS A 06/08/2023 2:40 PM LEASING AGENT CNFL Comment: Estimated GFR calculated using the 2020 CKD_EPI creatinine equation. Calcium, Total, P 9.3 8.8 - 10.2 mg/dL 06/08/2023 2:40 PM LEASING AGENT CNFL Glucose, P 101 70 - 140 mg/dL 06/08/2023 2:40 PM LEASING AGENT CNFL Protein, Total, P 6.6 6.3 - 7.9 g/dL 06/08/2023 2:40 PM LEASING AGENT CNFL Albumin, P 4.2 3.5 - 5.0 g/dL 06/08/2023 2:40 PM LEASING AGENT CNFL Aspartate Aminotransferase (AST), P 20 8 - 48 U/L 06/08/2023 2:40 PM LEASING AGENT CNFL Alkaline Phosphatase, P 86 40 - 129 U/L 06/08/2023 2:40 PM LEASING AGENT CNFL Alanine Aminotransferase (ALT), P 17 7 - 55 U/L 06/08/2023 2:40 PM LEASING AGENT CNFL Bilirubin, Total, P 0.8 0.0 - 1.2 mg/dL 06/08/2023 2:40 PM LEASING AGENT CNFL Blood (Blood, Venous) 06/08/2023 2:18 PM LEASING AGENT 06/08/2023 2:20 PM LEASING AGENT Jace Fagan P.A.-C., P.A. LAB BLOOD ADD-ON F inal Result [facility] [address] [place] [phone], [facility] CNFL [facility] [place] [address] * Lipid Panel (07/07/2019 12:30 PM LEASING AGENT) [facility] Cholesterol, Total 131 mg/dL 2018 2:05 PM LEASING AGENT DTL Comment: ----REFERENCE VALUE---- Desirable: < 200 Borderline high: 200 - 239 High: > or = 240 Triglycerides 77 mg/dL 07/07/2019 2:05 PM LEASING AGENT DTL Comment: ----REFERENCE VALUE---- Normal: <150 Borderline high: 150-199 High: 200-499 Very high: > or =500 Cholesterol, HDL, S 44 >=40 mg/dL 07/07/2019 2:05 PM LEASING AGENT DTL Calculated LDL 72 mg/dL 07/07/2019 2:05 PM LEASING AGENT DTL Comment: ----REFERENCE VALUE---- Desirable: <100 Above Desirable: 100-129 Borderline high: 130-159 High: 160-189 Very high: > or =190 Cholesterol, Non-HDL, Calculated 87 mg/dL 07/07/2019 2:05 PM LEASING AGENT DTL Comment: ----REFERENCE VALUE---- Desirable: <130 Above Desirable: 130-159 Borderline high: 160-189 High: 190-219 Very high: > or =220 Blood (Blood, Venous) 07/07/2019 12:30 PM LEASING AGENT 07/07/2019 12:55 PM LEASING AGENT Iwona Mendoza M.D., M.H.A. LAB BLOOD ADD-ON Fi nal Result Performing Organization Address [facility]/ZIP Co de Phone Number [facility] [place] [address] [place] [address], [facility] DTL Formerly [facility] [address] [place] [address] * HIV-1/-2 Ag and Ab Screen (10/15/2017 8:32 AM CDT) HIV-1/-2 Ag and Ab Screen, S Negative Negative [facility] [place] Comment: Negative result does not rule out HIV infection. If acute HIV infection is suspected in a high-risk individual, submit plasma specimen for HIV-1 RNA quantification test (HIVDQ) and/or HIV-2 DNA/RNA test (FHV2Q). 10/15/2017 8:32 AM CDT 10/15/2017 8:32 AM CDT Mike Arenas M.D. LAB MICROBIOLOGY - BLOOD O RDERABLES Final Result Performing Organization Address [facility] Co de Phone Number [facility] [place] [address] * HCV Ab Scrn w/Reflex to HCV PCR, S (10/15/2017 8:32 AM CDT) HCV Ab Screen, S Negative Negative [facility] [place] Comment:[id number] rat io is <1.00. 10/15/2017 8:32 AM CDT 10/15/2017 8:32 AM CDT Mike Arenas M.D. LAB MICROBIOLOGY - BLOOD O RDERABLES Final Result Performing Organization Address City/[facility]/ZIP Co de Phone Number [facility] [place] [address] from Last 3 Months or Most Recently Relevant to [place] [phone] MEDICA Care Teams Row Boss Hoeing Relationship Specialty Start Date End Date Elsewhere, Pcp PCP - General Internal Medicine 06/08/23
--- OUTSIDE RECORDS SUMMARY | 2024-10-06 10:39 | XMS_ITS | Encounter Summary ---
Author Organization [facility] Address [address] [place] [address] Care Team Providers Care Dock Guard Name Role Phone Elsewhere, Pcp Primary Care Provider Unavailabl e Reason for Visit * Physical Therapy (Routine) - Authorized Specialty Diagnoses / Procedures Referred By Mignon aldrich Referred To Contact Diagnoses Arthroplasty Total Knee Replacement Status Post Left Procedures PT Ongoing treatment Jorge Mcgraw M.D. [address] [place] [address] Phone: tel: fax: [facility] Region Referral ID Status Reason Start Date Expiration Date V isits Requested Visits Authorized [id number] Authorized 10/01/2024 07/20/2025 20 20 Encounter Details Date Type Department Care Team (Latest Contact Info) Description 10/04/2024 1:00 PM CDT Clinical Support Department of Rehabilitation Services in [address] [phone] Jorge Mcgraw M.D. [address] [place] [address] Feroz Miguel, P.T. [address] [place] [address] [phone] Arthroplasty Total Knee Replacement Status Post Left [...] relatives? 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 Visit Diagnosis: 1. Arthroplasty Total Knee Replacement Status Post Left Payor: MEDICA / Plan: MEDICA CARETYPE CHOICEPASSPORT PID [id number] / Product Type: PPO / No data [...] Clinical Support Department of Rehabilitation Services in [address] [phone] Jorge Mcgraw M.D. [address] [place] [phone] Ferzo Miguel PAjith [address] [place] [phone] documented as of this encounter Visit Diagnoses Diagnosis Arthroplasty Total Knee Replacement Status Post Left documented in this encounter Care Teams Dock Guard Relationship Specialty Start Date End Date Elsewhere, Pcp PCP - General Internal Medicine 06/08/23 documented as of this encounter
--- OUTSIDE RECORDS SUMMARY | 2024-10-06 10:39 | XMS_ITS | Encounter Summary ---
Author Organization [facility] er Address [address] [place] [address] Care Team Providers Care Warehouse Hand Name Role Phone Dante Howe MD Primary Care Provider [phone] Reason for Visit * Reason Comments Med Refill Encounter Details Date Type Department Care Team (Late st Contact Info) Description 03/10/2023 Refill [place] [address] [place] [address] Tabitha López MD Borderline hyperlipidemia Social History [...] hyperlipidemia documented in this encounter Care Teams Warehouse Hand Relationship Specialty Start Date End Date Dante Howe MD [address] [facility] [address] [place] [phone] PCP - General 05/08/23 documented as of this encounter
--- OUTSIDE RECORDS SUMMARY | 2024-10-06 10:39 | XMS_ITS | Encounter Summary ---
Author Organization [facility] er Address [address] [place] [address] Care Team Providers Care Distillery Worker General Name Role Phone Dante Howe MD Primary Care Provider [phone] Reason for Visit * Reason Comments Med Refill Encounter Details Date Type Department Care Team (Late st Contact Info) Description 04/28/2019 Refill [place] [address] [place] [address] Tabitha López MD Gastroesophageal reflux disease, esophagitis [...] specified documented in this encounter Care Teams Distillery Worker General Relationship Specialty Start Date End Date Dante Howe MD [address] [facility] [address] [place] [phone] PCP - General 05/08/23 documented as of this encounter
--- OUTSIDE RECORDS SUMMARY | 2024-10-06 10:40 | XMS_ITS | Clinical Summary ---
Author Organization [facility] er Address [address] [place] [address] Care Team Providers Care Facilities Operator Name Role Phone Dante Howe MD Primary Care Provider [phone] Allergies Active Allergy Reactions Criticality Noted Date [...] [place] [address] [place] [address] Dante Howe MD Gastroesophageal reflux disease without [...] complete this topic Insurance MEDICA Care Teams Facilities Operator Relationship Specialty Start Date End Date Dante Howe MD [address] [place] [address] PCP - General 05/08/23
[2024-10-06 10:45] VITALS: BP 150/101; PULSE 103; RESP 32; O2SAT 98
[2024-10-06 10:56] VITALS: BP 133/82; PULSE 82; RESP 12; O2SAT 94
== END 2024-10-06 11:29 | disposition home or self-care (01) ==
PROVIDERS: Emergency Provider Family Medicine; PCP Nurse Practitioner Family
DX: R06.02 Shortness of breath (principal)
CPT/HCPCS: 36415; 71275; 80048; 80076; 83605; 84484; 85025; 85379; 85610; 85730; 87631; 93005; 93970; 94761; 99285; Q9967

== ENCOUNTER 2024-11-08 08:16 | Emergency (ER) | payer OTHER, SELFPAY ==
--- OUTSIDE RECORDS SUMMARY | 2024-11-08 08:19 | XMS_ITS | Encounter Summary ---
Author Organization [facility] Address [address] [place] [address] Care Team Providers Care Server Administrator Name Role Phone Elsewhere, Pcp Primary Care Provider Unavailabl e Reason for Visit * Physical Therapy (Routine) - Authorized Specialty Diagnoses / Procedures Referred By Mignon aldrich Referred To Contact Diagnoses Arthroplasty Total Knee Replacement Status Post Left Procedures PT Ongoing treatment Jorge Mcgraw M.D. [address] [place] [address] Phone: tel: fax: [facility] Region Referral ID Status Reason Start Date Expiration Date V isits Requested Visits Authorized [id number] Authorized 10/01/2024 07/20/2025 20 20 Encounter Details Date Type Department Care Team (Latest Contact Info) Description 10/22/2024 1:15 PM CDT Clinical Support Department of Rehabilitation Services in [address] [phone] Jorge Mcgraw M.D. [address] [place] [address] Feroz Miguel, P.T. [address] [place] [address] [phone] Arthroplasty Total Knee Replacement Status Post Left [...] relatives? 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 - 10/22/2024 1:15 PM CDT Physical Therapy Outpatient Treatment Note SUBJECTIVE Patient's Name: Luis M Nagel Referring Provider: Jorge Mcgraw M.D. Visit Diagnosis: 1. Arthroplasty Total Knee Replacement Status Post Left Reason for Referral: Left Total Knee Arthroplasty. Payor: MEDICA / Plan: MEDICA CARETYPE CHOICEPASSPORT PID [id number] / Product Type: PPO / No data recorded Epic Visit Count: 10 Family/Caregiver Present: No Patient comments: Luis M comes into therapy today now being just little over 4 weeks status post left Total Knee Arthroplasty. He continues to manage his pain with prescribed medication. He continues to experience most significant pain over the anterior/medial aspect of his left knee. He was able to go to work today in tolerate a good portion of the day at work. However, he has constant discomfort with most activities. He continues to use a CPM machine at home which has helped with his overall mobility. OBJECTIVE Pain: Pain Assessment Pain Score: 6 Ortho Exam Upon observation today, patient still continues to have a moderate amount of swelling in his knee. There is point tenderness over the anterior/medial aspect of the joint line. Passively, after fairlyaggressive stretching today, we are able to obtain knee flexion to 108??. He continues to have an extension lag of approximately 8??. He has pain over the anterior/medial aspect of his knee with extension. Overall strength is somewhat limited by pain at this time. We would rate it as a 4-/5. TREATMENT Treatment today consisted of: We had patient on the sci fit for approximately 8 minutes sliding the seat forward to tolerance. Deuce transferred him to the stationary bike in we lowered the seat to tolerance. After this, we brought him to the leg press machine in we had him drop his legs on the platform to increase knee flexion to tolerance. After this we brought him to the treatment table in we worked on stretching of the hamstrings/quadriceps. We worked on some contract relax exercises for knee extension. We hooked up the interferential stim to help assist with pain management. Assessment Clinical Impression: Patient is now just little over 4 weeks postop. He still has some limitations with both knee flexion/extension. Increase in mobility has comes slow. However, he has continued to show some progress for knee flexion. There is some concern with his knee extension at this time. We encouraged him to continue with his exercises at home. Rehab Potential: Good Clinical Presentation: Stable Examination elements: 1-2 Functional Goals and Timeframes: PT Goal #1: To increase knee flexion to 120?? passively. Extension lag to 0?? PT Goal #1 to be achieved by: 11/19/24 PT Goal #2: Patient is able ambulate without a walker independently. PT Goal #2 to be achieved by: 11/12/24 PT Goal #3: To increase knee extension/flexion strength from a present 4-/5 to 4+/5. PT Goal #3 to be achieved by: 12/03/24 PT Goal #4: Patient is independent ambulating with a standard cane. PT Goal #4 to be achieved by: 10/29/24 Plan will continue with therapies for both mobility and strength. He will be following up with his benefits specialist in approximately 2 weeks. Number of Outpatient PT Visits: 12 PT Outpatient Duration (days): 45 days PT Frequency: 3 times per week Plan for next session: Treatment/Interventions: Therapeutic exercise, Manual therapy Time Spent with Patient Therapeutic Interventions Manual Therapy (min): 30 min Therapeutic Exercise (min): 15 min Time Tracking Total Timed Units (min): 45 min Total Treatment Time (min): 45 min documented in this encounter Plan of Treatment Upcoming Encounters Date Type Department Care Team (Late st Contact Info) Description 11/09/2024 10:30 AM CDT Clinical Support Department of Rehabilitation Services in [address] [phone] Jorge Mcgraw M.D. [address] [place] [phone] Feroz Miguel PAjith [address] [place] [address] [phone] documented as of this encounter Visit Diagnoses Diagnosis Arthroplasty Total Knee Replacement Status Post Left documented in this encounter Care Teams Server Administrator Relationship Specialty Start Date End Date Elsewhere, Pcp PCP - General Internal Medicine 06/08/23 documented as of this encounter
--- OUTSIDE RECORDS SUMMARY | 2024-11-08 08:19 | XMS_ITS | Encounter Summary ---
Author Organization [facility] Address [address] [place] [address] Care Team Providers Care Book Sewer Name Role Phone Elsewhere, Pcp Primary Care Provider Unavailabl e Reason for Visit * Physical Therapy (Routine) - Authorized Specialty Diagnoses / Procedures Referred By Mignon aldrich Referred To Contact Diagnoses Arthroplasty Total Knee Replacement Status Post Left Procedures PT Ongoing treatment Jorge Mcgraw M.D. [address] [place] [address] Phone: tel: fax: [facility] Region Referral ID Status Reason Start Date Expiration Date V isits Requested Visits Authorized [id number] Authorized 10/01/2024 07/20/2025 20 20 Encounter Details Date Type Department Care Team (Latest Contact Info) Description 10/27/2024 11:00 AM CDT Clinical Support Department of Rehabilitation Services in [address] [phone] Jorge Mcgraw M.D. [address] [place] [address] Feroz Miguel, P.T. [address] [place] [phone] Arthroplasty Total Knee Replacement Status Post Left [...] relatives? 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 - 10/27/2024 11:00 AM CDT Physical Therapy Outpatient Treatment Note SUBJECTIVE Patient's Name: Luis M Nagel Referring Provider: Jorge Mcgraw M.D. Visit Diagnosis: 1. Arthroplasty Total Knee Replacement Status Post Left Payor: MEDICA / Plan: MEDICA CARETYPE CHOICEPASSPORT PID [id number] / Product Type: PPO / No data recorded Epic Visit Count: 12 Patient comments: Luis M comes into therapy today with no new complaints. He is working much of the day now. He is ambulating with a standard cane. OBJECTIVE Pain: Pain Assessment Pain Score: 5 - Moderate pain Ortho Exam TREATMENT Treatment today consisted of: Patient warmed up on the sci fit today, sliding the seat forward to tolerance. We then brought him to the treatment table in worked specifically on knee extension. We worked on prolonged stretching. We worked on joint mobilization addressing anterior glides of the knee with patient in prone in the knee bent at approximately 80??. Assessment Clinical Impression: Patient tolerated well overall. We are trying to go of the garnett mechanic today to see how we would respond throughout the rest of the day. We are specific to knee extension at this time. Functional Goals and Timeframes: PT Goal #1: [...] achieved by: 10/29/24 Plan We will see him once again on Friday. Plan for next session: Time Spent with Patient Therapeutic Interventions Manual Therapy (min): 15 min Time Tracking Total Timed Units (min): 15 min Total Treatment Time (min): 15 min documented in this encounter Plan of Treatment Upcoming Encounters Date Type Department Care Team (Late st Contact Info) Description 11/09/2024 10:30 AM CDT Clinical Support Department of Rehabilitation Services in [address] [phone] Jorge Mcgraw M.D. [address] [place] [phone] Feroz Miguel P.T. [address] [place] [address] [phone] documented as of this encounter Visit Diagnoses Diagnosis Arthroplasty Total Knee Replacement Status Post Left documented in this encounter Care Teams Book Sewer Relationship Specialty Start Date End Date Elsewhere, Pcp PCP - General Internal Medicine 06/08/23 documented as of this encounter
--- OUTSIDE RECORDS SUMMARY | 2024-11-08 08:19 | XMS_ITS | Encounter Summary ---
Author Organization [facility] Address [address] [place] [address] Care Team Providers Care Veterinary Milk Specialist Name Role Phone Elsewhere, Pcp Primary Care Provider Unavailabl e Reason for Visit * Physical Therapy (Routine) - Authorized Specialty Diagnoses / Procedures Referred By Mignon t Referred To Contact Diagnoses Arthroplasty Total Knee Replacement Status Post Left Procedures PT Ongoing treatment Jorge Mcgraw M.D. [address] [place] [address] Phone: tel: fax: [facility] Region Referral ID Status Reason Start Date Expiration Date V isits Requested Visits Authorized [id number] Authorized 10/01/2024 07/20/2025 20 20 Encounter Details Date Type Department Care Team (Latest Contact Info) Description 10/25/2024 1:30 PM CDT Clinical Support Department of Rehabilitation Services in [address] [phone] Jorge Mcgraw M.D. [address] [place] [phone] Feroz Miguel, P.T. [address] [place] [address] [phone] Arthroplasty Total Knee Replacement Status Post Left [...] relatives? 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 - 10/25/2024 1:30 PM CDT Physical Therapy Outpatient Treatment Note SUBJECTIVE Patient's Name: Luis M Nagel Referring Provider: Jorge Mcgraw M.D. Visit Diagnosis: 1. Arthroplasty Total Knee Replacement Status Post Left Payor: MEDICA / Plan: MEDICA CARETYPE CHOICEPASSPORT PID [id number] / Product Type: PPO / No data recorded Epic Visit Count: 11 Patient comments: Luis M comes into therapy today with similar issues overall. He has been using the CPM machine at home. He has been doing his exercises. OBJECTIVE Pain: Pain Assessment Pain Score: 6 Ortho Exam TREATMENT Treatment today consisted of: We had patient start out on the sci fit, sliding the seat forward to tolerance. After this, we brought him to the leg press machine and he came down into flexion to tolerance. We then brought him over to the stationary bike and he was able to make full revolutions. We lowered the seat to tolerance.After this, we brought him to the treatment table in worked on passive range of motion for knee flexion/extension. We treated with interferential stim over the knee joint itself for pain management while we were working on some stretching exercises. We worked on prolonged stretching with extension.Presently, flexion was to approximately 105??. There is still an extension lag of approximately 8??. Assessment Clinical Impression: Patient's mobility is about the same today as it was last week. He certainly is aggressive with hisexercises. Functional Goals and Timeframes: PT Goal #1: [...] #4 to be achieved by: 10/29/24 Plan Plan will be to continue with mobility as able. He has an appointment to see his art specialist in approximately 2 weeks. Plan for next session: Time Spent with Patient Therapeutic Interventions Manual Therapy (min): 25 min Therapeutic Exercise (min): 25 min Time Tracking Total Timed Units (min): 50 min Total Treatment Time (min): 50 min documented in this encounter Plan of Treatment Upcoming Encounters Date Type Department Care Team (Late st Contact Info) Description 11/09/2024 10:30 AM CDT Clinical Support Department of Rehabilitation Services in [address] [phone] Jorge Mcgraw M.D. [address] [place] [phone] Feroz Miguel PCuauhtemoc. [address] [place] [phone] documented as of this encounter Visit Diagnoses Diagnosis Arthroplasty Total Knee Replacement Status Post Left documented in this encounter Care Teams Veterinary Milk Specialist Relationship Specialty Start Date End Date Elsewhere, Pcp PCP - General Internal Medicine 06/08/23 documented as of this encounter
--- OUTSIDE RECORDS SUMMARY | 2024-11-08 08:19 | XMS_ITS | Encounter Summary ---
Author Organization [facility] Address [address] [place] [address] Care Team Providers Care Furnace Maintenance Name Role Phone Elsewhere, Pcp Primary Care Provider Unavailabl e Reason for Visit * Physical Therapy (Routine) - Authorized Specialty Diagnoses / Procedures Referred By Mignon aldrich Referred To Contact Diagnoses Arthroplasty Total Knee Replacement Status Post Left Procedures PT Ongoing treatment Jorge Mcgraw M.D. [address] [place] [address] Phone: tel: fax: [facility] Region Referral ID Status Reason Start Date Expiration Date V isits Requested Visits Authorized [id number] Authorized 10/01/2024 07/20/2025 20 20 Encounter Details Date Type Department Care Team (Latest Contact Info) Description 10/15/2024 2:00 PM CDT Clinical Support Department of Rehabilitation Services in [address] [phone] Jorge Mcgraw M.D. [address] [place] [phone] Feroz Miguel, P.T. [address] [place] [address] [phone] Arthroplasty Total Knee Replacement Status Post Left [...] relatives? 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 - 10/15/2024 2:00 PM CDT Physical Therapy Outpatient Treatment Note SUBJECTIVE Patient's Name: Luis M Nagel Referring Provider: Jorge Mcgraw M.D. Visit Diagnosis: 1. Arthroplasty Total Knee Replacement Status Post Left Payor: MEDICA / Plan: MEDICA CARETYPE CHOICEPASSPORT PID [id number] / Product Type: PPO / No data recorded Epic Visit Count: 7 Patient comments: Luis M comes into therapy today with no new complaints. OBJECTIVE Pain: Pain Assessment Pain Score: 5 - Moderate pain Ortho Exam TREATMENT Treatment today consisted of: I we had patient on the sci fit for approximately 15 minutes sliding the seat forward to tolerance.We then had him on the treatment table in we worked aggressively on passive range of motion for both knee flexion/extension. We worked on some contract relax exercises for hamstring lengthening. We worked on muscle stripping of the hamstrings as well. We are able to obtain knee flexion to nearly 105??. There is still an extension lag of approximately 8??. He has fairly significant amount of pain with movements in both directions. Assessment Clinical Impression: Patient is improving with his overall mobility at this time. He still has a fairly significant amount of discomfort with end ranges. However, overall, he has been showing improvement. Functional Goals and Timeframes: PT Goal #1: [...] #4 to be achieved by: 10/29/24 Plan He is going to continue with the CPM machine at home as well as his exercises. He should be concentrating more aggressively with hamstring lengthening as well. We will follow up once again on Friday.We will continue to work on mobility/strength. Plan for next session: Time Spent with [...] Support Department of Rehabilitation Services in [address] [phone] Jorge Mcgraw M.D. [address] [place] [phone] Feroz Miguel PAjith [address] [place] [phone] documented as of this encounter Visit Diagnoses Diagnosis Arthroplasty Total Knee Replacement Status Post Left documented in this encounter Care Teams Furnace Maintenance Relationship Specialty Start Date End Date Elsewhere, Pcp PCP - General Internal Medicine 06/08/23 documented as of this encounter
--- OUTSIDE RECORDS SUMMARY | 2024-11-08 08:19 | XMS_ITS | Encounter Summary ---
Author Organization [facility] Address [address] [place] [address] Care Team Providers Care Musician Instrumental Name Role Phone Elsewhere, Pcp Primary Care Provider Unavailabl e Reason for Visit * Physical Therapy (Routine) - Authorized Specialty Diagnoses / Procedures Referred By Mignon aldrich Referred To Contact Diagnoses Arthroplasty Total Knee Replacement Status Post Left Procedures PT Ongoing treatment Jorge Mcgraw M.D. [address] [place] [address] Phone: tel: fax: [facility] Region Referral ID Status Reason Start Date Expiration Date V isits Requested Visits Authorized [id number] Authorized 10/01/2024 07/20/2025 20 20 Encounter Details Date Type Department Care Team (Latest Contact Info) Description 10/29/2024 1:45 PM CDT Clinical Support Department of Rehabilitation Services in [address] [phone] Jorge Mcgraw M.D. [address] [place] [address] Feroz Miguel, P.T. [address] [place] [address] [phone] Arthroplasty Total Knee Replacement Status Post Left [...] relatives? 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 - 10/29/2024 1:45 PM CDT Physical Therapy Outpatient Treatment Note SUBJECTIVE Patient's Name: Luis M Nagel Referring Provider: Jorge Mcgraw M.D. Visit Diagnosis: 1. Arthroplasty Total Knee Replacement Status Post Left Payor: MEDICA / Plan: MEDICA CARETYPE CHOICEPASSPORT PID [id number] / Product Type: PPO / No data recorded Epic Visit Count: 13 Patient comments: Luis M comes into therapy today with no new complaints. He is working most of the day now. OBJECTIVE Pain: Pain Assessment Pain Score: 5 - Moderate pain Ortho Exam TREATMENT Treatment today consisted of: I we continue with patient on the sci fit initially. We slid the seat forward to tolerance. After this, we brought him over to the treatment table in we worked on prolonged stretching for hamstring stretch. We worked on anterior glides with patient in the prone position. We worked on prolonged stretch for his quadriceps as well. We are able to obtain knee flexion to approximately 105??. He has a 5-7 degree extension lag. Assessment Clinical Impression: Patient tolerated well overall. He has been able to tolerate therapy a little bit better overall. He is able to tolerate stretching a little bit more. It does appear that his extension maybe improving by 2-3 degrees. Functional Goals and Timeframes: PT Goal #1: [...] be achieved by: 10/29/24 Plan We will continue to focus on Mobility at this time. Plan for next session: Time Spent with Patient Therapeutic Interventions Manual Therapy (min): 23 min Therapeutic Exercise (min): 12 min Time Tracking Total Timed Units (min): 35 min Total Treatment Time (min): 35 min documented in this encounter Plan of Treatment Upcoming Encounters Date Type Department Care Team (Late st Contact Info) Description 11/09/2024 10:30 AM CDT Clinical Support Department of Rehabilitation Services in [address] [phone] Jorge Mcgraw M.D. [address] [place] [phone] Feroz Miguel P.T. [address] [place] [phone] documented as of this encounter Visit Diagnoses Diagnosis Arthroplasty Total Knee Replacement Status Post Left documented in this encounter Care Teams Musician Instrumental Relationship Specialty Start Date End Date Elsewhere, Pcp PCP - General Internal Medicine 06/08/23 documented as of this encounter
--- OUTSIDE RECORDS SUMMARY | 2024-11-08 08:20 | XMS_ITS | Encounter Summary ---
Author Organization [facility] Address [address] [place] [address] Care Team Providers Care Electrical Power Station Technician Name Role Phone Elsewhere, Pcp Primary Care Provider Unavailabl e Reason for Visit * Physical Therapy (Routine) - Authorized Specialty Diagnoses / Procedures Referred By Mignon aldrich Referred To Contact Diagnoses Arthroplasty Total Knee Replacement Status Post Left Procedures PT Ongoing treatment Jorge Mcgraw M.D. [address] [place] [address] Phone: tel: fax: [facility] Region Referral ID Status Reason Start Date Expiration Date V isits Requested Visits Authorized [id number] Authorized 10/01/2024 07/20/2025 20 20 Encounter Details Date Type Department Care Team (Latest Contact Info) Description 10/18/2024 2:30 PM CDT Clinical Support Department of Rehabilitation Services in [address] [phone] Jorge Mcgraw M.D. [address] [place] [address] Feroz Miguel, P.T. [address] [place] [address] [phone] Arthroplasty Total Knee Replacement Status Post Left [...] relatives? 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 - 10/18/2024 2:30 PM CDT Physical Therapy Outpatient Treatment Note SUBJECTIVE Patient's Name: Joe Nagel Referring Provider: Jorge Mcgraw M.D. Visit Diagnosis: 1. Arthroplasty Total Knee Replacement Status Post Left Payor: MEDICA / Plan: MEDICA CARETYPE CHOICEPASSPORT PID [id number] / Product Type: PPO / No data recorded Epic Visit Count: 8 Patient comments: Joe comes into therapy today stating that he continues to have pain in his knee. Some of this is at night which makes it difficult to sleep. He has been doing the CPM machine on and off throughout the day. Extension is very uncomfortable for him. OBJECTIVE Pain: Pain Assessment Pain Score: 6 Ortho Exam TREATMENT Treatment today consisted of: We had patient on the sci fit initially, sliding the seat forward to tolerance. After this, we had him on the stationary bike for the 1st time, lowering the seat to tolerance. He was able to make full revolutions. We then brought patient over to the leg press machine in we had him come down into flexion to tolerance. We then brought him to the treatment table in we had him work on hamstring curlsas well as heel slides and short arc quads. We provided passive range of motion for knee flexion. We are able to obtain knee flexion to approximately 108??. He continues to have an extension lag of approximately 10??. This is very uncomfortable when we tried to stretch. We did work on muscle stripping of the hamstrings as well as contract relax exercises for stretching of the hamstrings. We encouraged him to be aggressive with this at home as well. Assessment Clinical Impression: Overall, joe is making some good gains with knee flexion. He has increase his mobility by 6?? after the weekend. He continues to have limited extension secondary to discomfort. His discomfort/pain is in the anterior aspect of his knee versus the hamstrings. Functional Goals and Timeframes: PT Goal #1: [...] achieved by: 10/29/24 Plan We will continue work on mobility. We will work on strength as able. Plan for next session: Time Spent with Patient documented in this encounter Plan of Treatment Upcoming Encounters Date Type Department Care Team (Late st Contact Info) Description 11/09/2024 10:30 AM CDT Clinical Support Department of Rehabilitation Services in [address] [phone] Jorge Mcgraw M.D. [address] [place] [phone] Feroz Miguel PAjith [address] [place] [phone] documented as of this encounter Visit Diagnoses Diagnosis Arthroplasty Total Knee Replacement Status Post Left documented in this encounter Care Teams Electrical Power Station Technician Relationship Specialty Start Date End Date Elsewhere, Pcp PCP - General Internal Medicine 06/08/23 documented as of this encounter
--- OUTSIDE RECORDS SUMMARY | 2024-11-08 08:20 | XMS_ITS | Encounter Summary ---
Author Organization [facility] Address [address] [place] [address] Care Team Providers Care Financial Aid Advisor Name Role Phone Elsewhere, Pcp Primary Care Provider Unavailabl e Reason for Visit * Physical Therapy (Routine) - Authorized Specialty Diagnoses / Procedures Referred By Mignon aldrich Referred To Contact Diagnoses Arthroplasty Total Knee Replacement Status Post Left Procedures PT Ongoing treatment Jorge Mcgraw M.D. [address] [place] [address] Phone: tel: fax: [facility] Region Referral ID Status Reason Start Date Expiration Date V isits Requested Visits Authorized [id number] Authorized 10/01/2024 07/20/2025 20 20 Encounter Details Date Type Department Care Team (Latest Contact Info) Description 10/04/2024 1:00 PM CDT Clinical Support Department of Rehabilitation Services in [address] [phone] Jorge Mcgraw M.D. [address] [place] [address] Feroz Miguel, P.T. [address] [place] [phone] Arthroplasty Total Knee Replacement Status Post Left [...] relatives? 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 [address] [place] [phone] Feroz Miguel PAjith [address] [place] [address] [phone] documented as of this encounter Visit Diagnoses Diagnosis Arthroplasty Total Knee Replacement Status Post Left documented in this encounter Care Teams Financial Aid Advisor Relationship Specialty Start Date End Date Elsewhere, Pcp PCP - General Internal Medicine 06/08/23 documented as of this encounter
--- OUTSIDE RECORDS SUMMARY | 2024-11-08 08:20 | XMS_ITS | Encounter Summary ---
Author Organization [facility] Address [address] [place] [address] Care Team Providers Care Humanities Professor Name Role Phone Elsewhere, Pcp Primary Care Provider Unavailabl e Reason for Visit * Physical Therapy (Routine) - Authorized Specialty Diagnoses / Procedures Referred By Mignon t Referred To Contact Diagnoses Arthroplasty Total Knee Replacement Status Post Left Procedures PT Ongoing treatment Jorge Mcgraw M.D. [address] [place] [address] Phone: tel: fax: [facility] Region Referral ID Status Reason Start Date Expiration Date V isits Requested Visits Authorized [id number] Authorized 10/01/2024 07/20/2025 20 20 Encounter Details Date Type Department Care Team (Latest Contact Info) Description 11/05/2024 9:45 AM CDT Clinical Support Department of Rehabilitation Services in [address] [phone] Jorge Mcgraw M.D. [address] [place] [address] Feroz Miguel, P.T. [address] [place] [address] [phone] Arthroplasty Total Knee Replacement Status Post Left [...] relatives? 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 - 11/05/2024 9:45 AM CDT Physical Therapy Outpatient Treatment Note SUBJECTIVE Patient's Name: Luis M Nagel Referring Provider: Jorge Mcgraw M.D. Visit Diagnosis: 1. Arthroplasty Total Knee Replacement Status Post Left Payor: MEDICA / Plan: MEDICA CARETYPE CHOICEPASSPORT PID [id number] / Product Type: PPO / No data recorded Epic Visit Count: 15 Patient comments: Luis M comes into therapy today with similar issues overall. OBJECTIVE Pain: Pain Assessment Pain Score: 5 - Moderate pain Ortho Exam TREATMENT Treatment today consisted of: We had him start on the sci fit for approximately 8 minutes. We slid the seat forward to tolerance.We then transferred him over to the stationary bike, lowering the seat to tolerance. He was able tomake full revolutions. After this, we brought him to the treatment table. We worked on knee flexion/extension. We used electrical stim to help manage his pain. Knee flexion remains relatively the same at approximately 105??. He has an extension lag of approximately 8-10 degrees. Assessment Clinical Impression: Patient tolerates therapy well overall. However, his mobility has been limited over the past coupleof weeks now. He continues to have moderate swelling of his knee. This may be limiting some of his motion. Functional Goals and Timeframes: PT Goal #1: [...] by: 10/29/24 Plan We will continue to work on mobility. We did reach out to his orthopedic team to discuss his overall progress. He will be following up with Orthopedics next Friday. Plan for next session: Time Spent [...] Clinical Support Department of Rehabilitation Services in [address] [phone] Jorge Mcgraw M.D. [address] [place] [phone] Feroz Miguel P.T. [address] [place] [phone] documented as of this encounter Visit Diagnoses Diagnosis Arthroplasty Total Knee Replacement Status Post Left documented in this encounter Care Teams Humanities Professor Relationship Specialty Start Date End Date Elsewhere, Pcp PCP - General Internal Medicine 06/08/23 documented as of this encounter
--- OUTSIDE RECORDS SUMMARY | 2024-11-08 08:20 | XMS_ITS | Encounter Summary ---
Author Organization [facility] Address [address] [place] [address] Care Team Providers Care Software Engineer Backend Name Role Phone Elsewhere, Pcp Primary Care Provider Unavailabl e Reason for Visit * Physical Therapy (Routine) - Authorized Specialty Diagnoses / Procedures Referred By Mignon aldrich Referred To Contact Diagnoses Arthroplasty Total Knee Replacement Status Post Left Procedures PT Ongoing treatment Jorge Mcgraw M.D. [address] [place] [address] Phone: tel: fax: [facility] Region Referral ID Status Reason Start Date Expiration Date V isits Requested Visits Authorized [id number] Authorized 10/01/2024 07/20/2025 20 20 Encounter Details Date Type Department Care Team (Latest Contact Info) Description 10/20/2024 2:00 PM CDT Clinical Support Department of Rehabilitation Services in [address] [phone] Jorge Mcgraw M.D. [address] [place] [address] Feroz Miguel, P.T. [address] [place] [address] [phone] Arthroplasty Total Knee Replacement Status Post Left [...] relatives? Three times a week 03/21/2020 Attends Scientology Services Not on file 03/21 Active Member [...] Answer Date Recorded PHQ-2 Score 0 08/07/2022 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 - 10/20/2024 2:00 PM CDT Physical Therapy Outpatient Treatment Note SUBJECTIVE Patient's Name: Luis M Nagel Referring Provider: Jorge Mcgraw M.D. Visit Diagnosis: 1. Arthroplasty Total Knee Replacement Status Post Left Payor: MEDICA / Plan: MEDICA CARETYPE CHOICEPASSPORT PID [id number] / Product Type: PPO / No data recorded Epic Visit Count: 9 Patient comments: Luis M comes into therapy today stating that he is doing fairly well overall. His pain is manageable when he takes his pain medication. When he is off his pain medication, his pain level can be as highas 7-8. He feels his a combination of stiffness and pain. Most of his discomfort is over the anterior/lateral aspect of his knee. He continues to use a CPM machine. He continues to ice. OBJECTIVE Pain: Pain Assessment Pain Score: 7 Ortho Exam TREATMENT Treatment today consisted of: We had patient start out on the sci fit, sliding the seat forward to tolerance. After this, we transferred him over to the stationary bike. He is able to make full revolutions. We then brought him over to the leg press machine for strengthening and mobility. We slid the seat down to tolerance here as well. We then brought him to the treatment table. We worked on muscle stripping of the hamstringswith prolonged stretch. He worked on contract relax exercises for stretching of the hamstrings. In supine, we worked on passive range of motion for knee flexion. We are able to obtain 110?? of flexion. He has an extension lag of approximately 7-8 degrees. This is with prolonged stretching. Assessment Clinical Impression: Patient continues to show improvement with knee flexion. He does have an extension lag which he continues to work on aggressively at home as well. His pain is more over the anterior aspect of his knee with knee extension. There does not appear to be any significant tightness in the posterior aspect. Functional Goals and Timeframes: PT Goal #1: [...] Plan We will continue to focus on both mobility and strengthening. Plan for next session: Time Spent with Patient Therapeutic Interventions Manual Therapy (min): 15 min Therapeutic Exercise (min): 30 min Time Tracking Total Timed Units (min): 45 min Total Treatment Time (min): 45 min documented in this encounter Plan of Treatment Upcoming Encounters Date Type Department Care Team (Late st Contact Info) Description 11/09/2024 10:30 AM CDT Clinical Support Department of Rehabilitation Services in [address] [phone] Jorge Mcgraw M.D. [address] [place] [phone] Feroz Miguel P.T. [address] [place] [phone] documented as of this encounter Visit Diagnoses Diagnosis Arthroplasty Total Knee Replacement Status Post Left documented in this encounter Care Teams Software Engineer Backend Relationship Specialty Start Date End Date Elsewhere, Pcp PCP - General Internal Medicine 06/08/23 documented as of this encounter
--- OUTSIDE RECORDS SUMMARY | 2024-11-08 08:20 | XMS_ITS | Encounter Summary ---
Author Organization [facility] Address [address] [place] [address] Care Team Providers Care Woolen Suiting Shrinker Name Role Phone Elsewhere, Pcp Primary Care Provider Unavailabl e Reason for Referral * Physical Therapy (Routine) - Authorized Specialty Diagnoses / Procedures Referred By Mignon aldrich Referred To Contact Diagnoses Arthroplasty Total Knee Replacement Status Post Left Procedures PT Ongoing treatment Jorge Mcgraw M.D. [address] [place] [address] Phone: tel: fax: [facility] Region Referral ID Status Reason Start Date Expiration Date V isits Requested Visits Authorized [id number] Authorized 10/01/2024 07/20/2025 20 20 Reason for Visit * Appointment Request (Routine) - Pending Review Specialty Diagnoses / Procedures Referred By Mignon aldrich Referred To Contact Physical Therapy Diagnoses Presence Of Left Artificial Knee Joint Jorge Mcgraw M.D. [address] [place] [address] Phone: tel: fax: Referral ID Status Reason Start Date Expiration Date V isits Requested Visits Authorized [id number] Pending Review 08/10/2024 11/10/2025 1 1 Encounter Details Date Type Department Care Team (Latest Contact Info) Description 10/01/2024 2:00 PM CDT Comprehensive Visit Department of Rehabilitation Services in [address] [place] [phone] Jorge Mcgraw M.D. [address] [place] [phone] Feroz Miguel PJeetTJeet [address] [place] [phone] Arthroplasty Total Knee Replacement Status Post [...] relatives? 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 [address] [place] [phone] Feroz Miguel, P.T. [address] [place] [phone] documented as of this encounter Visit Diagnoses Diagnosis Arthroplasty Total Knee Replacement Status Post Left- Primary documented in this encounter Care Teams Woolen Suiting Shrinker Relationship Specialty Start Date End Date Elsewhere, Pcp PCP - General Internal Medicine 06/08/23 documented as of this encounter
--- OUTSIDE RECORDS SUMMARY | 2024-11-08 08:20 | XMS_ITS | Clinical Summary ---
Author Organization [facility] Address [address] [place] [address] Care Team Providers Care Citrus Picker Name Role Phone Dante Howe MD Primary Care Provider Allergies Active Allergy Reactions Criticality Noted Date [...] other diseases of the circulatory system 05/06/2017 Immunizations Immunization Administration Dates Next Due Flu Vaccine High [...] complete this topic Insurance MEDICA Care Teams Citrus Picker Relationship Specialty Start Date End Date Dante Howe MD [address] [place] [phone] PCP - General 05/08/23
--- OUTSIDE RECORDS SUMMARY | 2024-11-08 08:20 | XMS_ITS | Encounter Summary ---
Author Organization [facility] Address [address] [place] [address] Care Team Providers Care Supply Crib Attendant Name Role Phone Elsewhere, Pcp Primary Care Provider Unavailabl e Reason for Visit * Physical Therapy (Routine) - Authorized Specialty Diagnoses / Procedures Referred By Mignon t Referred To Contact Diagnoses Arthroplasty Total Knee Replacement Status Post Left Procedures PT Ongoing treatment Jorge Mcgraw M.D. [address] [place] [address] Phone: tel: fax: [facility] Region Referral ID Status Reason Start Date Expiration Date V isits Requested Visits Authorized [id number] Authorized 10/01/2024 07/20/2025 20 20 Encounter Details Date Type Department Care Team (Latest Contact Info) Description 10/11/2024 11:15 AM CDT Clinical Support Department of Rehabilitation Services in [address] [phone] Jorge Mcgraw M.D. [address] [place] [address] Feroz Miguel, P.T. [address] [place] [address] [phone] Arthroplasty Total Knee Replacement Status Post Left [...] relatives? 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 - 10/11/2024 11:15 AM CDT Physical Therapy Outpatient Treatment Note SUBJECTIVE Patient's Name: Luis M Nagel Referring Provider: Jorge Mcgraw M.D. Visit Diagnosis: 1. Arthroplasty Total Knee Replacement Status Post Left Payor: MEDICA / Plan: MEDICA CARETYPE CHOICEPASSPORT PID [id number] / Product Type: PPO / No data recorded Epic Visit Count: 5 Patient comments: Luis M comes into therapy today with continued pain in his knee. He feels it is a little more sore today than it has been in the past. He continues do his exercises at home. OBJECTIVE Pain: Pain Assessment Pain Score: 7 Treatment: Patient presents with knee flexion to approximately 85-90?? after stretching/sci fit. We brought him over to the leg press machine in we had him come down into flexion to tolerance. After this, we instructed patient with the CPM machine that he can try at home. We set him up on the CPM machine hereso that he we would be fitted well when he works on it at home. Assessment Clinical Impression: Patient continues to have pain which is fairly significant. Swelling seems to be fairly manageable.Simple movements into flexion is uncomfortable. He has an extension lag of approximately 5-7 degrees. Functional Goals and Timeframes: PT Goal [...] to be achieved by: 10/29/24 Plan Patient is going to work with the CPM machine at home, including his other exercises as well. We encouraged him to be very aggressive with this challenging himself to increase his motion. Plan for next session: Time Spent with Patient Therapeutic Interventions Manual Therapy (min): 25 min Therapeutic Exercise (min): 15 min Time Tracking Total Timed Units (min): 40 min Total Treatment Time (min): 40 min documented in this encounter Plan of Treatment Upcoming Encounters Date Type Department Care Team (Late st Contact Info) Description 11/09/2024 10:30 AM CDT Clinical Support Department of Rehabilitation Services in [address] [phone] Jorge Mcgraw M.D. [address] [place] [phone] Feroz Miguel PAjith [address] [place] [phone] documented as of this encounter Visit Diagnoses Diagnosis Arthroplasty Total Knee Replacement Status Post Left documented in this encounter Care Teams Supply Crib Attendant Relationship Specialty Start Date End Date Elsewhere, Pcp PCP - General Internal Medicine 06/08/23 documented as of this encounter
--- OUTSIDE RECORDS SUMMARY | 2024-11-08 08:20 | XMS_ITS | Encounter Summary ---
Author Organization [facility] Address [address] [place] [address] Care Team Providers Care Marketing Data Specialist Name Role Phone Elsewhere, Pcp Primary Care Provider Unavailabl e Reason for Visit * Physical Therapy (Routine) - Authorized Specialty Diagnoses / Procedures Referred By Mignon aldrich Referred To Contact Diagnoses Arthroplasty Total Knee Replacement Status Post Left Procedures PT Ongoing treatment Jorge Mcgraw M.D. [address] [place] [address] Phone: tel: fax: [facility] Region Referral ID Status Reason Start Date Expiration Date V isits Requested Visits Authorized [id number] Authorized 10/01/2024 07/20/2025 20 20 Encounter Details Date Type Department Care Team (Latest Contact Info) Description 10/13/2024 2:00 PM CDT Clinical Support Department of Rehabilitation Services in [address] [phone] Jorge Mcgraw M.D. [address] [place] [address] Feroz Miguel, P.T. [address] [place] [address] [phone] Arthroplasty Total Knee Replacement Status Post Left [...] relatives? 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 - 10/13/2024 2:00 PM CDT Physical Therapy Outpatient Treatment Note SUBJECTIVE Patient's Name: Luis M Nagel Referring Provider: Jorge Mcgraw M.D. Visit Diagnosis: 1. Arthroplasty Total Knee Replacement Status Post Left Payor: MEDICA / Plan: MEDICA CARETYPE CHOICEPASSPORT PID [id number] / Product Type: PPO / No data recorded Epic Visit Count: 6 Patient comments: Luis M comes into therapy today stating that he is feeling a little better overall. He has been usingthe CPM machine at home which she feels has been effective. OBJECTIVE Pain: Pain Assessment Pain Score: 5 - Moderate pain Ortho Exam TREATMENT Treatment today consisted of: Patient started out on the sci fit for approximately 10 minutes. After this, we brought him over tothe leg press machine allowing him to come down into flexion as tolerated. We then brought him to the treatment worked on passive range of motion for both knee flexion/extension. We worked on muscle stripping of the hamstrings as well as some contract relax exercises. Presently, knee flexion was to95??. He has an extension lag of approximately 5-7 degrees. Assessment Clinical Impression: Patient is showing some improvement with his overall mobility. His knee is moving more freely passively. He is tolerating therapies better as well. Functional Goals and Timeframes: PT Goal #1: [...] to be achieved by: 10/29/24 Plan We recommended that he increase his time on the CPM machine to 1 hour at a time. He should be in this 3 times per day. He should also work on his knee flexion/extension exercises continuously. He continues to ice. Plan for next session: Time Spent with Patient Therapeutic Interventions Manual Therapy (min): 15 min Therapeutic Exercise (min): 25 min Time Tracking Total Timed Units (min): 40 min Total Treatment Time (min): 40 min documented in this encounter Plan of Treatment Upcoming Encounters Date Type Department Care Team (Late st Contact Info) Description 11/09/2024 10:30 AM CDT Clinical Support Department of Rehabilitation Services in [address] [phone] Jorge Mcgraw M.D. [address] [place] [phone] Feroz Miguel PAjith [address] [place] [phone] documented as of this encounter Visit Diagnoses Diagnosis Arthroplasty Total Knee Replacement Status Post Left documented in this encounter Care Teams Marketing Data Specialist Relationship Specialty Start Date End Date Elsewhere, Pcp PCP - General Internal Medicine 06/08/23 documented as of this encounter
--- OUTSIDE RECORDS SUMMARY | 2024-11-08 08:20 | XMS_ITS | Encounter Summary ---
Author Organization [facility] Address [address] [place] [address] Care Team Providers Care Account Receivable Clerk Name Role Phone Dante Howe MD Primary Care Provider [phone] Reason for Visit * Reason Comments Med Refill Encounter Details Date Type Department Care Team (Late st Contact Info) Description 03/10/2023 Refill [facility] [address] [place] [address] Tabitha López MD Borderline hyperlipidemia Social History [...] hyperlipidemia documented in this encounter Care Teams Account Receivable Clerk Relationship Specialty Start Date End Date Dante Howe MD [address] [facility] [address] [place] [address] PCP - General 05/08/23 documented as of this encounter
--- OUTSIDE RECORDS SUMMARY | 2024-11-08 08:20 | XMS_ITS | Clinical Summary ---
Author Organization [facility] Address [address] [place] [address] Care Team Providers Care Engine Turner Name Role Phone Chelsea Hdz NP Primary [...] Department Care Team Description 08/12/2024 8:30 AM PREPARER MAKING DEPARTMENT Ancillary Procedure [facility] [address] [facility] [address] [place] [address] 08/12/2024 Travel from Last 3 Months Social History Tobacco Use Types Packs/Day Years Used Date Smoking Tobacco: Never Smokeless Tobacco: Former Quit: 06/18/2008 Tobacco Cessation:Counseling Given: Yes Alcohol Use Standard Drinks/Week Comments Not Asked 0 (1 standard drink = 0.6 oz pur e alcohol) Sex and Gender Information Value Date Recorded Sex Assigned at Not on file Legal Sex Male 8:13 AM PREPARER MAKING DEPARTMENT Gender Identity Not on file Sexual Orientation Not on file Obstetrics History Last Filed Vital Signs Vital Sign Reading Time Taken Comments Blood Pressure 151/92 02/06/2022 12:59 PM CDT Pulse 69 02/06/2022 12:59 PM CDT Temperature 36.6 C (97.9 F) 05/12/2019 9:41 AM CDT Respiratory Rate 18 09/24/2011 3:00 PM PREPARER MAKING DEPARTMENT Oxygen Saturation 94% 02/06/2022 12:59 PM CDT [...] 04/01/20 12 COVID-19 vaccine series ( - season) Influenza Vaccine (Season Ended) 2025 RSV vaccine for adults or pr egnancy (1 - 1-dose 75+ series) 2037 Procedures Procedure Name Priority Date/Time Associated Diagnosis Comments CT CARDIAC CALCIUM SCORE ONLY WO SINGLE READ Routine 08/12/2024 8:39 AM PREPARER MAKING DEPARTMENT Screening for cardiovascular condition from Last 3 Months Results * CT CARDIAC CALCIUM SCORE ONLY WO SINGLE READ (08/12/2024 8:39 AM PREPARER MAKING DEPARTMENT) Anatomical Region Laterality Modality Computed Tomogra phy 08/12/2024 9:47 AM PREPARER MAKING DEPARTMENT Narrative 08/12/2024 9:47 AM PREPARER MAKING DEPARTMENT For Patients: As a result of the [...] 3 Months Insurance MEDICA CHOICE Care Teams Engine Turner Relationship Specialty Start Date End Date Chelsea Hdz NP [address] [place] [address] PCP - General Emergency Medicine 03/31/19
--- OUTSIDE RECORDS SUMMARY | 2024-11-08 08:20 | XMS_ITS | Encounter Summary ---
Author Organization [facility] Address [address] [place] [address] Care Team Providers Care Domestic Freight Forwarder Name Role Phone Elsewhere, Pcp Primary Care Provider Unavailabl e Reason for Visit * Physical Therapy (Routine) - Authorized Specialty Diagnoses / Procedures Referred By Mignon t Referred To Contact Diagnoses Arthroplasty Total Knee Replacement Status Post Left Procedures PT Ongoing treatment Jorge Mcgraw M.D. [address] [place] [address] Phone: tel: fax: [facility] Region Referral ID Status Reason Start Date Expiration Date V isits Requested Visits Authorized [id number] Authorized 10/01/2024 07/20/2025 20 20 Encounter Details Date Type Department Care Team (Latest Contact Info) Description 11/02/2024 8:45 AM CDT Clinical Support Department of Rehabilitation Services in [address] [phone] Jorge Mcgraw M.D. [address] [place] [address] Feroz Miguel, P.T. [address] [place] [address] [phone] Arthroplasty Total Knee Replacement Status Post Left [...] relatives? 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 - 11/02/2024 8:45 AM CDT Physical Therapy Outpatient Treatment Note SUBJECTIVE Patient's Name: Luis M Nagel Referring Provider: Jorge Mcgraw M.D. Visit Diagnosis: 1. Arthroplasty Total Knee Replacement Status Post Left Payor: MEDICA / Plan: MEDICA CARETYPE CHOICEPASSPORT PID [id number] / Product Type: PPO / No data recorded Epic Visit Count: 14 Patient comments: Luis M comes into therapy today with no new complaints. He feels he has not seen a lot of improvementin his knee flexion/extension over the past couple of weeks. This will also be painful at night. Hedoes have some difficulties in sleeping. He is working full-time now. He can discipline himself to be at a desk but he will get up and walk around throughout the day. OBJECTIVE Pain: Pain Assessment Pain Score: 5 - Moderate pain Ortho Exam TREATMENT Treatment today consisted of: I we continued with patient starting out on the sci fit for approximately 8 minutes. We then brought him to the treatment table in worked on passive range of motion for knee flexion/extension. We worked on prolonged stretching of the hamstrings with muscle stripping. We worked on anterior glides. We also had him work on some knee extension exercises. Assessment Clinical Impression: Patient appears to be plateauing with his mobilities. He has a hard end feel at pathological end range of approximately 105??. He has an extension lag of approximately 8??. Functional Goals and Timeframes: PT Goal #1: [...] Plan We will continue to work on his motion and strength. He does have an appointment to see his orthopedic surgeon next week. Plan for next session: Time Spent with [...] Clinical Support Department of Rehabilitation Services in [address] [phone] Jorge Mcgraw M.D. [address] [place] [phone] Feroz Miguel P.T. [address] [place] [phone] documented as of this encounter Visit Diagnoses Diagnosis Arthroplasty Total Knee Replacement Status Post Left documented in this encounter Care Teams Domestic Freight Forwarder Relationship Specialty Start Date End Date Elsewhere, Pcp PCP - General Internal Medicine 06/08/23 documented as of this encounter
--- OUTSIDE RECORDS SUMMARY | 2024-11-08 08:20 | XMS_ITS | Encounter Summary ---
Author Organization [facility] Address [address] [place] [address] Care Team Providers Care Desk Manager Name Role Phone Dante Howe MD Primary Care Provider [phone] Reason for Visit * Reason Comments Med Refill Encounter Details Date Type Department Care Team (Late st Contact Info) Description 04/28/2019 Refill [facility] [address] [place] [address] Tabitha López MD Gastroesophageal reflux disease, esophagitis [...] specified documented in this encounter Care Teams Desk Manager Relationship Specialty Start Date End Date Dante Howe MD [address] [facility] [address] [place] [phone] PCP - General 05/08/23 documented as of this encounter
--- OUTSIDE RECORDS SUMMARY | 2024-11-08 08:20 | XMS_ITS | Clinical Summary ---
Author Organization [facility] Address [address] [place] [address] Care Team Providers Care Market Research Consultant Name Role Phone Elsewhere, Pcp Primary Care Provider Unavailabl e Source Comments Patient records contain information from all sites at [facility]. For routine questions regarding patient records, call [phone] during business hours, M-F 8:00 AM - 5:00 PM Central Time. Record requests for emergency care only can be directed to [phone] at any time.[facility] Allergies Active Allergy Reactions Criticality Noted Date [...] Encounters Date Type Department Care Team Description 11/05/2024 9:45 AM CDT Clinical Support Department of Rehabilitation Services in [address] [place] [address] Jorge Mcgraw M.D. Beissel, Curtis J, P.T. Arthroplasty Total Knee Replacement Status Post Left 11/02/2024 8:45 AM CDT Clinical Support Department of Rehabilitation Services in [address] [phone] Jorge Mcgraw M.D. Beissel, Curtis J P.T. Arthroplasty Total Knee Replacement Status Post Left 10/29/2024 1:45 PM CDT Clinical Support Department of Rehabilitation Services in [address] [place] [address] Jorge Mcgraw M.D. Beissel, Curtis J, P.T. Arthroplasty Total Knee Replacement Status Post Left 10/27/2024 11:00 AM CDT Clinical Support Department of Rehabilitation Services in [address] [phone] Jorge Mcgraw M.D. Beissel, Curtis J, P.T. Arthroplasty Total Knee Replacement Status Post Left 10/25/2024 1:30 PM CDT Clinical Support Department of Rehabilitation Services in [address] [phone] Jorge Mcgraw M.D. Beissel, Curtis J, P.T. Arthroplasty Total Knee Replacement Status Post Left 10/22/2024 1:15 PM CDT Clinical Support Department of Rehabilitation Services in [address] [phone] Jorge Mcgraw M.D. Beissel, Curtis J, P.T. Arthroplasty Total Knee Replacement Status Post Left 10/20/2024 2:00 PM CDT Clinical Support Department of Rehabilitation Services in [address] [phone] Jorge Mcgraw M.D. Beissel, Curtis J, P.T. Arthroplasty Total Knee Replacement Status Post Left 10/18/2024 2:30 PM CDT Clinical Support Department of Rehabilitation Services in [place] [place] [address] Jorge Mcgraw M.D. Beissel, Curtis J, P.T. Arthroplasty Total Knee Replacement Status Post Left 10/15/2024 2:00 PM CDT Clinical Support Department of Rehabilitation Services in [address] [place] [address] Jorge Mcgraw M.D. Beissel, Curtis J, P.T. Arthroplasty Total Knee Replacement Status Post Left 10/13/2024 2:00 PM CDT Clinical Support Department of Rehabilitation Services in [address] [place] [address] Jorge Mcgraw M.D. Beissel, Curtis J, P.T. Arthroplasty Total Knee Replacement Status Post Left 10/11/2024 11:15 AM CDT Clinical Support Department of Rehabilitation Services in [address] [place] [address] Jorge Mcgraw M.D. Beissel, Curtis J, P.T. Arthroplasty Total Knee Replacement Status Post Left 10/08/2024 2:00 PM CDT Clinical Support Department of Rehabilitation Services in [address] [place] [address] Jorge Mcgraw M.D. Beissel, Curtis J, P.T. Arthroplasty Total Knee Replacement Status Post Left 10/06/2024 10:30 AM CDT Clinical Support Department of Rehabilitation Services in [address] [place] [address] Jorge Mcgraw M.D. Beissel, Curtis J, P.T. Arthroplasty Total Knee Replacement Status Post Left 10/04/2024 1:00 PM CDT Clinical Support Department of Rehabilitation Services in [address] [place] [address] Jorge Mcgraw M.D. Beissel Feroz J, P.T. Arthroplasty Total Knee Replacement Status Post Left 10/01/2024 2:00 PM CDT Comprehensive Visit Department of Rehabilitation Services in [address] [phone] Jorge Mcgraw M.D. Beissel, Curtis J P.T. Arthroplasty Total Knee Replacement Status Post [...] relatives? Three times a week 03/21/2020 Attends [employer] Services Not on file 03/21 Active Member [...] Answer Date Recorded PHQ-2 Score 0 08/07/2022 [facility] [place] of Occupat ional Health - Occupational Stress [...] on file Legal Sex Male 2:14 AM CLAIM ADJUSTER Gender Identity Male 03/10/2020 8:09 AM CDT Sexual Orientation Straight 03/10/2020 8: 09 AM CDT Last Filed Vital Signs Vital Sign Reading Time Taken Comments Blood Pressure 130/92 06/08/2023 4:15 PM CLAIM ADJUSTER Pulse 78 06/08/2023 4:15 PM CLAIM ADJUSTER Temperature 36.2 C (97.2 F) 06/08/2023 2:01 PM CLAIM ADJUSTER Respiratory Rate 16 06/08/2023 4:15 PM CLAIM ADJUSTER Oxygen Saturation 96% 06/08/2023 4:15 PM CLAIM ADJUSTER Inhaled Oxygen Concentration - - Weight 88.9 kg (195 lb 15.8 oz) 06/08/2023 2:01 PM CLAIM ADJUSTER Height 175.3 cm (5' 9) 03/03/2022 11:2 2 AM CDT Body Mass Index 28.94 03/03/2022 11:22 AM CDT Plan of Treatment Upcoming Encounters Date Type Department Care Team (Late st Contact Info) Description 11/09/2024 10:30 AM CDT Clinical Support Department of Rehabilitation Services in [address] [phone] Jorge Mcgraw M.D. [address] [place] [phone] Feroz Miguel, P.T. [address] [place] [address] [place] [address] Health Maintenance Due Date Last Done Comments CT Colonography 1960 Cologuard 1960 Pneumococcal vaccine (50+ years) (1 of 1 - PCV) 2012 COVID-19 Vaccine (1 - season) 2024 Influenza Vaccine (#1) 2024 7, 05/06/2017, 04/25/2014, Additional history exists Lipid (Cholesterol) Screening 07/07/2024 07/07/2019, 10/15/2017, 05/16/2017, Additional history exists Colonoscopy 07/08/2024 07/08/2019, 09/19, 07/19/2010 (Performed elsewhere), Additional history exists Colorectal Cancer Surveillance 07/08/2024 [...] this topic Medical Devices Implanted Type Area Assistant Education Director Device Identifier Shelf Expiration Date Model / Serial / Lot Hardware E.G. Pins/Screws/Ro ds-05/12/2019 Implanted:04/21 (Quantity not on file) Hardware e.g. pins/screws/r ods Foot Description:Rt toe- pin Procedures Procedure Name Priority Date/Time Associated Diagnosis Comments COMPREHENSIVE METABOLIC PANEL, S/P STAT 06/08/2023 2:18 PM CLAIM ADJUSTER COLONOSCOPY Routine 07/08/2019 10:08 AM CLAIM ADJUSTER Screening Cancer Colon LIPID PANEL, S Routine 07/07/2019 12:30 PM CLAIM ADJUSTER Multisystem Laboratory Testing Adult HCV AB SCRN W/REFLEX TO HCV PCR, S Routine 10/15/2017 8:32 AM CDT HIV-1/-2 AG AND AB SCREEN Routine 10/15/2017 8:32 AM CDT from Last 3 Months or Most Recently Relevant to Health Maintenance Results * Comprehensive Metabolic Panel (06/08/2023 2:18 PM CLAIM ADJUSTER) Pathologist [facility] Potassium, P 4.5 3.6 - 5.2 mmol/L 06/08/2023 2:40 PM CLAIM ADJUSTER CNFL Sodium, P 137 135 - 145 mmol/L 06/08/2023 2:40 PM CLAIM ADJUSTER CNFL Chloride, P 103 98 - 107 mmol/L 06/08/2023 2:40 PM CLAIM ADJUSTER CNFL Bicarbonate, P 24 22 - 29 mmol/L 06/08/2023 2:40 PM CLAIM ADJUSTER CNFL Anion Gap, P 10 7 - 15 06/08/2023 2:40 PM CLAIM ADJUSTER CNFL BUN (Blood Urea Nitrogen), P 18 8 - 24 mg/dL 06/08/2023 2:40 PM CLAIM ADJUSTER CNFL Creatinine 0.92 0.74 - 1.35 mg/dL 06/08/2023 2:40 PM CLAIM ADJUSTER CNFL Estimated GFR (eGFR) >90 >=60 mL/min/BS A 06/08/2023 2:40 PM CLAIM ADJUSTER CNFL Comment: Estimated GFR calculated using the 2020 CKD_EPI creatinine equation. Calcium, Total, P 9.3 8.8 - 10.2 mg/dL 06/08/2023 2:40 PM CLAIM ADJUSTER CNFL Glucose, P 101 70 - 140 mg/dL 06/08/2023 2:40 PM CLAIM ADJUSTER CNFL Protein, Total, P 6.6 6.3 - 7.9 g/dL 06/08/2023 2:40 PM CLAIM ADJUSTER CNFL Albumin, P 4.2 3.5 - 5.0 g/dL 06/08/2023 2:40 PM CLAIM ADJUSTER CNFL Aspartate Aminotransferase (AST), P 20 8 - 48 U/L 06/08/2023 2:40 PM CLAIM ADJUSTER CNFL Alkaline Phosphatase, P 86 40 - 129 U/L 06/08/2023 2:40 PM CLAIM ADJUSTER CNFL Alanine Aminotransferase (ALT), P 17 7 - 55 U/L 06/08/2023 2:40 PM CLAIM ADJUSTER CNFL Bilirubin, Total, P 0.8 0.0 - 1.2 mg/dL 06/08/2023 2:40 PM CLAIM ADJUSTER CNFL Blood (Blood, Venous) 06/08/2023 2:18 PM CLAIM ADJUSTER 06/08/2023 2:20 PM CLAIM ADJUSTER us aJce Fagan P.A.-C., P.A. LAB BLOOD ADD-ON F inal Result [facility] [address] [place] [address], [facility] CNFL [facility] in [address] [address] * Colonoscopy (07/08/2019 10:08 AM CLAIM ADJUSTER) 07/08/2019 10:0 8 AM CLAIM ADJUSTER Impressions [facility] - 07/08/2019 11:11 AM CLAIM ADJUSTER Post-op Diagnoses: - Diverticulosis in the sigmoid colon. - The examination was otherwise normal. - No specimens collected. Narrative [facility] - 07/08/2019 11:11 AM CLAIM ADJUSTER Gonda 9 GI GI Patient Name: Luis M Nagel Date of : 1960 Age: 59 Gender: Male Procedure Date: 07/08/2019 Procedure: Colonoscopy Providers: Nilo Braden MD Referring Provider: Iwona Mendoza Pre-op Diagnoses: Personal history of colonic polyps Recommendation: - Return to referring physician. Findings: A few small-mouthed diverticula were found in the sigmoid colon. The exam was otherwise without abnormality. Procedural Details: The patient was seen, evaluated, history reviewed, airway and heart-lung exams were performed by licensed provider and were satisfactory for planned level of sedation care. The risks, benefits and alternatives for the procedure and sedation were discussed and informed consent was obtained. A procedural pause was conducted in the presence of assisting personnel to verify the correct patient identity and procedure to be performed. Throughout the procedure, the patient's blood pressure, pulse, and oxygen saturations were monitored continuously. The Colonoscope was introduced under direct vision through the anus and advanced to the cecum, identified by appendiceal orifice and ileocecal valve. The colonoscopy was performed without difficulty. The patient tolerated the procedure well. The quality of the bowel preparation was adequate. The quality of the bowel preparation was evaluated using the BBPS ([place] Bowel Preparation Scale). The total BBPS score equals 5. Complications: No immediate complications. Sedation: Moderate (conscious) sedation was administered by the endoscopy nurse and supervised by the endoscopist. The patient's oxygen saturation, heart rate, blood pressure and response to care were monitored. Total physician intraservice time was 43 minutes. Attending Participation: I was present and participated during the entire procedure, including non-li portions. Nilo Braden MD 07/08/2019 11:11:06 AM This report has been signed electronically. Number of Addenda: 0 Iwona Mendoza M.D., M.H.A. GI PROCEDURE ORDERA BLES Final Result Performing Organization Address City/State/[facility] Co wa Phone Number [facility] NA * Lipid Panel (07/07/2019 12:30 PM CLAIM ADJUSTER) Cholesterol, Total 131 mg/dL 2018 2:05 PM CLAIM ADJUSTER DTL Comment: ----REFERENCE VALUE---- Desirable: < 200 Borderline high: 200 - 239 High: > or = 240 Triglycerides 77 mg/dL 07/07/2019 2:05 PM CLAIM ADJUSTER DTL Comment: ----REFERENCE VALUE---- Normal: <150 Borderline high: 150-199 High: 200-499 Very high: > or =500 Cholesterol, HDL, S 44 >=40 mg/dL 07/07/2019 2:05 PM CLAIM ADJUSTER DTL Calculated LDL 72 mg/dL 07/07/2019 2:05 PM CLAIM ADJUSTER DTL Comment: ----REFERENCE VALUE---- Desirable: <100 Above Desirable: 100-129 Borderline high: 130-159 High: 160-189 Very high: > or =190 Cholesterol, Non-HDL, Calculated 87 mg/dL 07/07/2019 2:05 PM CLAIM ADJUSTER DTL Comment: ----REFERENCE VALUE---- Desirable: <130 Above Desirable: 130-159 Borderline high: 160-189 High: 190-219 Very high: > or =220 Blood (Blood, Venous) 07/07/2019 12:30 PM CLAIM ADJUSTER 07/07/2019 12:55 PM CLAIM ADJUSTER Iwona Mendoza M.D., M.H.A. LAB BLOOD ADD-ON Fi nal Result Performing Organization Address [facility]/ZIP Co de Phone Number [facility] [address] DTL [facility] [address] [place] [address] * HIV-1/-2 Ag and Ab Screen (10/15/2017 8:32 AM CDT) HIV-1/-2 Ag and Ab Screen, S Negative Negative [facility] Comment: Negative result does not rule out HIV infection. If acute HIV infection is suspected in a high-risk individual, submit plasma specimen for HIV-1 RNA quantification test (HIVDQ) and/or HIV-2 DNA/RNA test (FHV2Q). 10/15/2017 8:32 AM CDT 10/15/2017 8:32 AM CDT Mike Arenas M.D. LAB MICROBIOLOGY - BLOOD O RDERABLES Final Result Performing Organization Address [facility] Co de Phone Number [facility] [address] * HCV Ab Scrn w/Reflex to HCV PCR, S (10/15/2017 8:32 AM CDT) HCV Ab Screen, S Negative Negative [facility] Comment:Ejdveq-tj-oolzxp rat io is <1.00. 10/15/2017 8:32 AM CDT 10/15/2017 8:32 AM CDT Mike Arenas M.D. LAB MICROBIOLOGY - BLOOD O RDERABLES Final Result Performing Organization Address City/[facility]/ZIP Co de Phone Number [facility] [address] [place], [place] [address] from Last 3 Months or Most Recently Relevant to Health Maintenance Insurance MEDICA Care Teams Market Research Consultant Relationship Specialty Start Date End Date Elsewhere, Pcp PCP - General Internal Medicine 06/08/23
--- OUTSIDE RECORDS SUMMARY | 2024-11-08 08:20 | XMS_ITS | Encounter Summary ---
Author Organization [facility] Address [address] [place] [address] Care Team Providers Care Passenger Screener Name Role Phone Elsewhere, Pcp Primary Care Provider Unavailabl e Reason for Visit * Physical Therapy (Routine) - Authorized Specialty Diagnoses / Procedures Referred By Mignon aldrich Referred To Contact Diagnoses Arthroplasty Total Knee Replacement Status Post Left Procedures PT Ongoing treatment Jorge Mcgraw M.D. [address] [place] [address] Phone: tel: fax: [facility] Region Referral ID Status Reason Start Date Expiration Date V isits Requested Visits Authorized [id number] Authorized 10/01/2024 07/20/2025 20 20 Encounter Details Date Type Department Care Team (Latest Contact Info) Description 10/06/2024 10:30 AM CDT Clinical Support Department of Rehabilitation Services in [address] [phone] Jorge Mcgraw M.D. [address] [place] [address] Feroz Miguel, P.T. [address] [place] [phone] Arthroplasty Total Knee Replacement Status Post Left [...] relatives? 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 - 10/06/2024 10:30 AM CDT Physical Therapy Outpatient Treatment Note SUBJECTIVE Patient's Name: Luis M Nagel Referring Provider: Jorge Mcgraw M.D. Visit Diagnosis: 1. Arthroplasty Total Knee Replacement Status Post Left Payor: MEDICA / Plan: MEDICA CARETYPE CHOICEPASSPORT PID [id number] / Product Type: PPO / No data recorded Epic Visit Count: 3 Patient comments: Comes into therapy today after having been seen by his revenue specialist. They did do a CT/ultrasound to rule out any DVTs. This was due to his breathing. His results were negative. He is at the clinic much of the morning. His knee is more sore today. He did take oxycodone prior to coming. OBJECTIVE Pain: Pain Assessment Pain Score: 8 Ortho Exam TREATMENT Treatment today consisted of: I we had patient warm up on the sci fit for approximately 13 minutes minutes as tolerated. We then brought him over to the treatment table in we worked on passive range of motion for knee extension/flexion. We are able to obtain flexion to approximately 92??. There is an extension lag of approximately 5??. Assessment Clinical Impression: Patient was more sore today after having been up on it much of the morning. Swelling is moderate atthis time. Functional Goals and Timeframes: PT Goal [...] be achieved by: 10/29/24 Plan We will continue. He is going to see if he can come in tomorrow just to get on the sci fit to work on his knee passively. We will also see him on Friday for scheduled therapy. Plan for next session: Time Spent with [...] Support Department of Rehabilitation Services in [address] [phone] Jorge Mcgraw M.D. [address] [place] [phone] Feroz Miguel P.T. [address] [place] [phone] documented as of this encounter Visit Diagnoses Diagnosis Arthroplasty Total Knee Replacement Status Post Left documented in this encounter Care Teams Passenger Screener Relationship Specialty Start Date End Date Elsewhere, Pcp PCP - General Internal Medicine 06/08/23 documented as of this encounter
--- OUTSIDE RECORDS SUMMARY | 2024-11-08 08:20 | XMS_ITS | Encounter Summary ---
Author Organization [facility] Address [address] [place] [address] Care Team Providers Care Set Up Inspector Name Role Phone Elsewhere, Pcp Primary Care Provider Unavailabl e Reason for Visit * Physical Therapy (Routine) - Authorized Specialty Diagnoses / Procedures Referred By Mignon aldrich Referred To Contact Diagnoses Arthroplasty Total Knee Replacement Status Post Left Procedures PT Ongoing treatment Jorge Mcgraw M.D. [address] [place] [address] Phone: tel: fax: [facility] Region Referral ID Status Reason Start Date Expiration Date V isits Requested Visits Authorized [id number] Authorized 10/01/2024 07/20/2025 20 20 Encounter Details Date Type Department Care Team (Latest Contact Info) Description 10/08/2024 2:00 PM CDT Clinical Support Department of Rehabilitation Services in [address] [phone] Jorge Mcgraw M.D. [address] [place] [phone] Feroz Miguel, P.T. [address] [place] [phone] Arthroplasty Total Knee Replacement Status Post Left [...] relatives? 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 - 10/08/2024 2:00 PM CDT Physical Therapy Outpatient Treatment Note SUBJECTIVE Patient's Name: Luis M Nagel Referring Provider: Jorge Mcrgaw M.D. Visit Diagnosis: 1. Arthroplasty Total Knee Replacement Status Post Left Payor: MEDICA / Plan: MEDICA CARETYPE CHOICEPASSPORT PID [id number] / Product Type: PPO / No data recorded Epic Visit Count: 4 Patient comments: Luis M comes into therapy today stating that he is having more soreness/stiffness in the mid region of his anterior thigh. He does not complain of any significant issues into the lower leg. He does getsome sleep overall. He has been doing his exercises at home trying to gain on both his flexion and extension. OBJECTIVE Pain: Pain Assessment Pain Score: 5 - Moderate pain Ortho Exam TREATMENT Treatment today consisted of: We had patient warm up on the sci fit for approximately 15 minutes today. We had him slide the seatforward to tolerance. After this, we brought him to the treatment table in we provided passive range of motion for knee flexion/extension. We worked on prolonged stretches. We encouraged him to be agg ressive with stretching over the weekend for both flexion/extension. Assessment Clinical Impression: Patient tolerated well overall. We are able to obtain knee flexion to approximately 95?? today. There is an extension lag of approximately 8??. Functional [...] achieved by: 10/29/24 Plan We will continue next week. We will focus on mobility and progress with strengthening when able. Plan for next session: Time Spent [...] Clinical Support Department of Rehabilitation Services in [address] [phone] Jorge Mcgraw M.D. [address] [place] [phone] Feroz Miguel PAjith [address] [place] [phone] documented as of this encounter Visit Diagnoses Diagnosis Arthroplasty Total Knee Replacement Status Post Left documented in this encounter Care Teams Set Up Inspector Relationship Specialty Start Date End Date Elsewhere, Pcp PCP - General Internal Medicine 06/08/23 documented as of this encounter
[2024-11-08 08:22] VITALS: BP 109/74; PULSE 76; RESP 14; TEMP 36.1; O2SAT 97; BMI 26.4
--- NOTE | 2024-11-08 08:30 | ED.GENADULT ---
HPI - General Adult General Time Seen by Provider: 08:30 Date Seen: 11/08/24 Chief complaint: Post Op Complication Stated complaint: 6 week surgery- left side lump Time Seen by Provider: 11/08/24 08:17 Source: patient and RN notes reviewed Mode of arrival: ambulatory Limitations: no limitations History of Present Illness HPI narrative: This 64-year-old male is coming in with concern of a lump in his knee with recent knee replacement. With patient had a total knee replacement on September [address] Mcgraw. He states he still having discomfort in the knee, does have a hard time sleeping due to some throbbing. He has noted no fevers or chills, no night sweats. There has been no increased swelling or redness about the knee. He reports he did have an ultrasound about 3 weeks ago ruling out blood clots. He has no history of DVT or PE prior. He did have an evaluation to rule out DVT as well as pulmonary emboli on October 06. He notes no chest pain, no shortness of breath. He still notes that he has mobility, has not had any setbacks as far as physical therapy and range of motion with his knee. When he told his that he felt a lump in the knee, she was concerned about blood clots. Related Data Home Medications ?Medication ?Instructions ?Recorded ?Confirmed aspirin 81 mg capsule 81 mg PO DAILY 02/06/22 11/08/24 atorvastatin 20 mg tablet 20 mg PO HS 09/28/24 11/08/24 losartan 25 mg tablet (Cozaar) 25 mg PO DAILY 09/28/24 11/08/24 Previous Rx's ?Medication ?Instructions ?Recorded tadalafil 10 mg tablet (Cialis) 10 mg PO QDAY PRN sexual activity 08/06/24 #8 tabs acetaminophen 500 mg capsule 500 - 1,000 mg (1 - 2 x 500 mg) PO 09/28/24 Q6H PRN pain #100 caps aspirin 81 mg chewable tablet 81 mg PO BID for DVT prophylaxis 09/28/24 (Aspirin Childrens) 30 days #60 tabs oxycodone 5 mg tablet 2.5 - 5 mg (0.5 - 1 x 5 mg) PO 10/18/24 Q4-6H PRN Pain #40 tabs sennosides 8.6 mg tablet (Senna 17.2 mg (2 x 8.6 mg) PO BID PRN 10/18/24 Lax) constipation #100 tabs Allergies Allergy/AdvReac Type Severity Reaction Status Date / Time Penicillins Allergy Verified 11/08/24 08:26 Review of Systems Narrative: As per HPI. PFS PFS Medical History Hypertension ?I10 - Essential (primary) hypertension (ICD-10) Hyperlipidemia ?E78.5 - Hyperlipidemia, unspecified (ICD-10) Lung nodule, multiple ?R91.8 - Other nonspecific abnormal finding of lung field (ICD-10) Varicella ?B01.9 - Varicella without complication (ICD-10) Surgical History History of total left knee replacement (09/28/24) ?Z96.652 - Presence of left artificial knee joint (ICD-10) History of tonsillectomy ?Z90.89 - Acquired absence of other organs (ICD-10) History of bunionectomy (05/10/19) ?Z98.890 - Other specified postprocedural states (ICD-10) History of ankle surgery ?Z98.890 - Other specified postprocedural states (ICD-10) H/O rotator cuff surgery (2013) ?Z98.890 - Other specified postprocedural states (ICD-10) H/O nasal septoplasty (07/02/11) ?Z98.890 - Other specified postprocedural states (ICD-10) Family History Father Heart disease Hx of CABG, Onset Age: 50 Stroke Kidney disease Daughter Celiac disease Paternal Grandfather Heart disease Sister Kidney disease Social History Narrative: former chewing tobacco -Kim What is your current living situation?: I presently have a place to live Problems where you live: no known problems In the past 12 months, utilities in danger of being shut off: no In past 12 months, lack of transportation kept you from medical appts, meetings, work, or getting things needed for daily living: no In the past 12 mos, have been you worried that your food would run out before you had money to buy more?: never true In the past 12 mos, the food you bought just didn't last and you didn't have money to buy more?: never true Highest level of school completed/degree received: Associate degree: occupational, technical, vocational program Smoking Status: Never smoker Do you use any of these nicotine containing products: None Second hand tobacco smoke exposure: No How often do you have a drink containing alcohol: monthly or less Alcohol type: beer, wine and hard liquor AUDIT-C Alcohol total score: 1 Non-prescribed substance use: denies use Caffeine: Yes How often does anyone, including family, friends and others, physically hurt you: never How often does anyone, including family, friends and others, insult or talk down to you: never How often does anyone, including family, friends and others, threaten you with harm: never How often does anyone, including family, friends and others, scream or curse at you: never service: No Exam Const: Vital Signs, click to edit/add: Vital Signs - 24 hr 11/08/24 08:22 Temperature 96.9 F L Pulse Rate [Pulse Oximeter] 76 Respiratory Rate 14 Blood Pressure [Ri ght Upper Arm] 109/74 Pulse Oximetry 97 Oxygen Delivery Me thod Room Air This 64-year-old male is alert, interactive, no apparent distress. Breathing easily on room air, speech is normal. Lungs are clear, good air entry, no wheezing or crackles, no tachypnea or accessory muscle use. CV regular rate and rhythm, no murmur, normal S1-S2. His left lower extremity is inspected. He has no pretibial pitting edema, skin is warm and dry, no vascular changes throughout his whole extremity. This scar overlying his left knee is well healed. There is no erythema or significant warmth around this knee. He still has some generalized soft tissue swelling around the knee but overall looks to be normal for the time of the postoperative period he is in. He can straight leg lift. He is looking to have full extension and flexion maybe to about 90? of this knee. He notes where he is feeling the lump is anteriorly and above the patella. He has some generalized induration in the area, no fluctuance, do not feel a mass. Do not feel any significant joint effusion, no popliteal fossa mass. There are no areas of vascular induration or cords like a thrombotic vein that I can feel. Documenting provider has reviewed patient's vital signs: yes Course Course ED Course: Reviewed with him that did the distribution of his symptoms really do not seem to be consistent with a DVT but it certainly still is in the realm of possibility and that is their concern. Will obtain a venous Doppler just to ensure no complicating DVT. Otherwise, will try to talk to the orthopedic surgeon that is around the facility today. They are currently in the OR but have left a note with the OR staff to have them contact me when they are done with their current case. Infection really does not seem to be a concern for the patient himself nor for me after history taking and clinical evaluation. I think this may just be some postoperative induration and will also await to see from Orthopedics if there is anything else that we should be concerned about here. Reevaluation(s) Time of Reevaluation #1: 09:47 Reevaluation #1: Did talk with Dr. Tineo. Reviewed that the patient's quadriceps is intact by a demonstrated straight leg raising. He reviewed the negative ultrasound for DVT. At this time he feels patient is stable to keep his follow-up with his surgeon on Friday. Did review this with Kiet and his . Will discharge to home at this time. Vital Signs Vital signs: Initial Vital Signs Temperature 96.9 F L 11/08/24 08:22 Temperature Source Temporal Artery Scan 11/08/24 08:22 Pulse Rate 76 11/08/24 08:22 Pulse Rhythm Regular 11/08/24 08:22 Respiratory Rate 14 11/08/24 08:22 Blood Pressure 109/74 11/08/24 08:22 Blood Pressure Mean 85 11/08/24 08:22 Blood Pressure Position Sitting 11/08/24 08:22 Pulse Oximetry 97 11/08/24 08:22 Oxygen Delivery Method Room Air 11/08/24 08:22 Vital Signs Temperature 96.9 F L 11/08/24 08:22 Pulse Rate 76 11/08/24 08:22 Respiratory Rate 14 11/08/24 08:22 Blood Pressure 109/74 11/08/24 08:22 Pulse Oximetry 97 11/08/24 08:22 Oxygen Delivery Method Room Air 11/08/24 08:22 Temperature 96.9 F L 11/08/24 08:22 Pulse Rate 76 11/08/24 08:22 Respiratory Rate 14 11/08/24 08:22 Blood Pressure 109/74 11/08/24 08:22 Pulse Oximetry 97 11/08/24 08:22 Oxygen Delivery Method Room Air 11/08/24 08:22 Medical Decision Making Imaging Data Venous US: Attestation: I have reviewed the pertinent imaging results. Radiologist's impression: Patient: KIET CORTEZ Facility:?[facility] Patient ID:?[id number] Site Patient ID:?[id number]. Site :?[id number] Study:?US-Extremity Left venous-11/08/2024 9:10:37 AM Ordering Physician:Olman Avina Final Report: INDICATION: Feels lump TECHNIQUE: Ultrasound venous duplex lower left extremity. Compression venous exam was performed using ma-scale, color Doppler, and spectral Doppler analysis. COMPARISON: Venous ultrasound 10/06/2024 FINDINGS: Deep veins: Sonographic imaging demonstrates the left common femoral, deep femoral, superficial femoral, popliteal, posterior tibial, peroneal and the contralateral right common femoral veins to be fully compressible with normal color Doppler blood flow. Superficial veins: Proximal greater saphenous vein is fully compressible. No fluid collection or abnormality seen in the area of the palpable lump. IMPRESSION: No deep venous thrombosis. No fluid collection or abnormality seen in the area of palpable lump. Dictated by Jennifer Mcguire MD @ 11/08/2024 9:25:22 AM (Electronic Signature) Discharge Plan Discharge Clinical Impression: History of total left knee replacement Patient Disposition: Home, Self-Care Condition: Stable Additional Instructions: Keep your scheduled follow-up with Dr. Mcgraw this coming Friday. The ultrasound is reassuring for no blood clot, there is no fluid collection or abnormality seen on ultrasound in the area. This very well just maybe some postoperative normal changes with some tissue thickening and inflammatory change in the healing process. Continue to watch for infection, please seek re-evaluation if there is any concern of that. Do recommend continuing with your physical therapy that you have been advised to do per the surgeon. Prescriptions: No Action tadalafil [Cialis] 10 mg tablet 10 mg PO QDAY PRN (Reason: sexual activity) Qty: 8 6RF Rx Instructions: administer approximately 30min before sexual activity; do not use more than 1 dose per 24hrs atorvastatin 20 mg tablet 20 mg PO HS losartan [Cozaar] 25 mg tablet 25 mg PO DAILY aspirin [Aspirin Childrens] 81 mg tablet,chewable 81 mg PO BID 30 Days Qty: 60 0RF acetaminophen 500 mg capsule 500 - 1,000 mg PO Q6H MDD 4000mg per day PRN (Reason: pain) Qty: 100 0RF aspirin 81 mg capsule 81 mg PO DAILY oxycodone 5 mg tablet 2.5 - 5 mg PO Q4-6H MDD 6 tabs per day PRN (Reason: Pain) Qty: 40 0RF Rx Instructions: Minimize use. Discontinue as soon as possible sennosides [Senna Lax] 8.6 mg tablet 17.2 mg PO BID PRN (Reason: constipation) Qty: 100 0RF Follow Up/Referrals: Chelsea Hdz APRN, SOIL FERTILITY SPECIALIST [Primary Care Provider] - Stand Alone Forms: MyHealth Info Instructions
--- NOTE | 2024-11-08 08:39 | CRLHL7_ITS ---
For Patients: As a result of the Century Cures Act, medical imaging exams and procedure reports are released immediately into your electronic medical record. You may view this report before your referring provider. If you have questions, please contact your health care provider. INDICATION: Feels lump TECHNIQUE: Ultrasound venous duplex lower left extremity. Compression venous exam was performed using ma-scale, color Doppler, and spectral Doppler analysis. COMPARISON: Venous ultrasound 10/06/2024 FINDINGS: Deep veins: Sonographic imaging demonstrates the left common femoral, deep femoral, superficial femoral, popliteal, posterior tibial, peroneal and the contralateral right common femoral veins to be fully compressible with normal color Doppler blood flow. Superficial veins: Proximal greater saphenous vein is fully compressible. No fluid collection or abnormality seen in the area of the palpable lump. IMPRESSION: No deep venous thrombosis. No fluid collection or abnormality seen in the area of palpable lump. Dictated by Jennifer Mcguire MD @ 11/08/2024 9:25:22 AM (Electronically Signed)
--- OUTSIDE RECORDS SUMMARY | 2024-11-08 09:11 | XMS_ITS | Encounter Summary ---
Author Organization [facility] Address [address] [place] [address] Care Team Providers Care Calibration Checker Name Role Phone Elsewhere, Pcp Primary Care Provider Unavailabl e Reason for Visit * Physical Therapy (Routine) - Authorized Specialty Diagnoses / Procedures Referred By Mignon aldrich Referred To Contact Diagnoses Arthroplasty Total Knee Replacement Status Post Left Procedures PT Ongoing treatment Jorge Mcgraw M.D. [address] [place] [phone] Phone: tel: fax: [facility] Region Referral ID Status Reason Start Date Expiration Date V isits Requested Visits Authorized [id number] Authorized 10/01/2024 07/20/2025 20 20 Encounter Details Date Type Department Care Team (Latest Contact Info) Description 10/22/2024 1:15 PM CDT Clinical Support Department of Rehabilitation Services in [address] [phone] Jorge Mcgraw M.D. [address] [place] [phone] Feroz Miguel, P.T. [address] [place] [address] [phone] Arthroplasty Total Knee Replacement Status Post Left [...] relatives? 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 Number of [...] Clinical Support Department of Rehabilitation Services in [address] [phone] Jorge Mcgraw M.D. [address] [place] [phone] Feroz Miguel PAjith [address] [place] [address] [phone] documented as of this encounter Visit Diagnoses Diagnosis Arthroplasty Total Knee Replacement Status Post Left documented in this encounter Care Teams Calibration Checker Relationship Specialty Start Date End Date Elsewhere, Pcp PCP - General Internal Medicine 06/08/23 documented as of this encounter
--- OUTSIDE RECORDS SUMMARY | 2024-11-08 09:11 | XMS_ITS | Encounter Summary ---
Author Organization [facility] Address [address] [place] [address] Care Team Providers Care Refining Machine Operator Name Role Phone Elsewhere, Pcp Primary Care Provider Unavailabl e Reason for Visit * Physical Therapy (Routine) - Authorized Specialty Diagnoses / Procedures Referred By Mignon t Referred To Contact Diagnoses Arthroplasty Total Knee Replacement Status Post Left Procedures PT Ongoing treatment Jorge Mcgraw M.D. [address] [place] [phone] Phone: tel: fax: [facility] Region Referral ID Status Reason Start Date Expiration Date V isits Requested Visits Authorized [id number] Authorized 10/01/2024 07/20/2025 20 20 Encounter Details Date Type Department Care Team (Latest Contact Info) Description 10/25/2024 1:30 PM CDT Clinical Support Department of Rehabilitation Services in [address] [phone] Jorge Mcgraw M.D. [address] [place] [phone] Feroz Miguel, P.T. [address] [place] [address] [phone] Arthroplasty Total Knee Replacement Status Post Left [...] relatives? 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 Plan for [...] Clinical Support Department of Rehabilitation Services in [address] [phone] Jorge Mcgraw M.D. [address] [place] [phone] Feroz Miguel PCuauhtemoc. [address] [place] [phone] documented as of this encounter Visit Diagnoses Diagnosis Arthroplasty Total Knee Replacement Status Post Left documented in this encounter Care Teams Refining Machine Operator Relationship Specialty Start Date End Date Elsewhere, Pcp PCP - General Internal Medicine 06/08/23 documented as of this encounter
--- OUTSIDE RECORDS SUMMARY | 2024-11-08 09:11 | XMS_ITS | Encounter Summary ---
Author Organization [facility] Address [address] [place] [address] Care Team Providers Care Machine Strap Buckler Name Role Phone Elsewhere, Pcp Primary Care Provider Unavailabl e Reason for Visit * Physical Therapy (Routine) - Authorized Specialty Diagnoses / Procedures Referred By Mignon aldrich Referred To Contact Diagnoses Arthroplasty Total Knee Replacement Status Post Left Procedures PT Ongoing treatment Jorge Mcgraw M.D. [address] [place] [phone] Phone: tel: fax: [facility] Region Referral ID Status Reason Start Date Expiration Date V isits Requested Visits Authorized [id number] Authorized 10/01/2024 07/20/2025 20 20 Encounter Details Date Type Department Care Team (Latest Contact Info) Description 10/29/2024 1:45 PM CDT Clinical Support Department of Rehabilitation Services in [address] [phone] Jorge Mcgraw M.D. [address] [place] [phone] Feroz Miguel, P.T. [address] [place] [address] [phone] Arthroplasty Total Knee Replacement Status Post Left [...] relatives? 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 [address] [place] [phone] Feroz Miguel P.T. [address] [place] [phone] documented as of this encounter Visit Diagnoses Diagnosis Arthroplasty Total Knee Replacement Status Post Left documented in this encounter Care Teams Machine Strap Buckler Relationship Specialty Start Date End Date Elsewhere, Pcp PCP - General Internal Medicine 06/08/23 documented as of this encounter
--- OUTSIDE RECORDS SUMMARY | 2024-11-08 09:12 | XMS_ITS | Encounter Summary ---
Author Organization [facility] Address [address] [place] [address] Care Team Providers Care Computer Systems Security Analyst Name Role Phone Elsewhere, Pcp Primary Care Provider Unavailabl e Reason for Visit * Physical Therapy (Routine) - Authorized Specialty Diagnoses / Procedures Referred By Mignon aldrich Referred To Contact Diagnoses Arthroplasty Total Knee Replacement Status Post Left Procedures PT Ongoing treatment Jorge Mcgraw M.D. [address] [place] [address] Phone: tel: fax: [facility] Region Referral ID Status Reason Start Date Expiration Date V isits Requested Visits Authorized [id number] Authorized 10/01/2024 07/20/2025 20 20 Encounter Details Date Type Department Care Team (Latest Contact Info) Description 10/18/2024 2:30 PM CDT Clinical Support Department of Rehabilitation Services in [address] [phone] Jorge Mcgraw M.D. [address] [place] [phone] Feroz Miguel, P.T. [address] [place] [address] [phone] Arthroplasty Total Knee Replacement Status Post Left [...] relatives? 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 [address] [place] [address] [phone] Feroz Miguel PAjith [address] [place] [address] [phone] documented as of this encounter Visit Diagnoses Diagnosis Arthroplasty Total Knee Replacement Status Post Left documented in this encounter Care Teams Computer Systems Security Analyst Relationship Specialty Start Date End Date Elsewhere, Pcp PCP - General Internal Medicine 06/08/23 documented as of this encounter
--- OUTSIDE RECORDS SUMMARY | 2024-11-08 09:12 | XMS_ITS | Encounter Summary ---
Author Organization [facility] Address [address] [place] [address] Care Team Providers Care Crab Meat Processor Name Role Phone Elsewhere, Pcp Primary Care Provider Unavailabl e Reason for Visit * Physical Therapy (Routine) - Authorized Specialty Diagnoses / Procedures Referred By Mignon aldrich Referred To Contact Diagnoses Arthroplasty Total Knee Replacement Status Post Left Procedures PT Ongoing treatment Jorge Mcgraw M.D. [address] [place] [phone] Phone: tel: fax: [facility] Region Referral ID Status Reason Start Date Expiration Date V isits Requested Visits Authorized [id number] Authorized 10/01/2024 07/20/2025 20 20 Encounter Details Date Type Department Care Team (Latest Contact Info) Description 10/27/2024 11:00 AM CDT Clinical Support Department of Rehabilitation Services in [address] [phone] Jorge Mcgraw M.D. [address] [place] [phone] Feroz Miguel, P.T. 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 [address] [place] [phone] Feroz Miguel P.T. [address] [place] [address] [phone] documented as of this encounter Visit Diagnoses Diagnosis Arthroplasty Total Knee Replacement Status Post Left documented in this encounter Care Teams Crab Meat Processor Relationship Specialty Start Date End Date Elsewhere, Pcp PCP - General Internal Medicine 06/08/23 documented as of this encounter
--- OUTSIDE RECORDS SUMMARY | 2024-11-08 09:12 | XMS_ITS | Clinical Summary ---
Author Organization [facility] Address [address] [place] [address] Care Team Providers Care Faculty Criminal Justice Name Role Phone Dante Howe MD Primary Care Provider [phone] Allergies Active Allergy Reactions Criticality Noted Date [...] complete this topic Insurance MEDICA Care Teams Faculty Criminal Justice Relationship Specialty Start Date End Date Dante Howe MD [address] [place] [phone] PCP - General 05/08/23
--- OUTSIDE RECORDS SUMMARY | 2024-11-08 09:12 | XMS_ITS | Encounter Summary ---
Author Organization [facility] Address [address] [place] [address] Care Team Providers Care Circuits Engineer Name Role Phone Elsewhere, Pcp Primary Care Provider Unavailabl e Reason for Referral * Physical Therapy (Routine) - Authorized Specialty Diagnoses / Procedures Referred By Mignon aldrich Referred To Contact Diagnoses Arthroplasty Total Knee Replacement Status Post Left Procedures PT Ongoing treatment Jorge Mcgraw M.D. [address] [place] [address] Phone: tel: fax: [facility] Region Referral ID Status Reason Start Date Expiration Date V isits Requested Visits Authorized [id number] Authorized 10/01/2024 07/20/2025 20 20 Reason for Visit * Appointment Request (Routine) - Pending Review Specialty Diagnoses / Procedures Referred By Mignon aldrich Referred To Contact Physical Therapy Diagnoses Presence Of Left Artificial Knee Joint Jorge Mcgraw M.D. [address] [place] [address] Phone: tel: fax: Referral ID Status Reason Start Date Expiration Date V isits Requested Visits Authorized [id number] Pending Review 08/10/2024 11/10/2025 1 1 Encounter Details Date Type Department Care Team (Latest Contact Info) Description 10/01/2024 2:00 PM CDT Comprehensive Visit Department of Rehabilitation Services in [address] [place] [phone] Jorge Mcgraw M.D. 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 [address] [place] [phone] Feroz Miguel, P.T. [address] [place] [phone] documented as of this encounter Visit Diagnoses Diagnosis Arthroplasty Total Knee Replacement Status Post Left- Primary documented in this encounter Care Teams Circuits Engineer Relationship Specialty Start Date End Date Elsewhere, Pcp PCP - General Internal Medicine 06/08/23 documented as of this encounter
--- OUTSIDE RECORDS SUMMARY | 2024-11-08 09:12 | XMS_ITS | Encounter Summary ---
Author Organization [facility] Address [address] [place] [address] Care Team Providers Care Plastic Shaper Name Role Phone Elsewhere, Pcp Primary Care Provider Unavailabl e Reason for Visit * Physical Therapy (Routine) - Authorized Specialty Diagnoses / Procedures Referred By Mignon t Referred To Contact Diagnoses Arthroplasty Total Knee Replacement Status Post Left Procedures PT Ongoing treatment Jorge Mcgraw M.D. [address] [place] [address] Phone: tel: fax: [facility] Region Referral ID Status Reason Start Date Expiration Date V isits Requested Visits Authorized [id number] Authorized 10/01/2024 07/20/2025 20 20 Encounter Details Date Type Department Care Team (Latest Contact Info) Description 11/02/2024 8:45 AM CDT Clinical Support Department of Rehabilitation Services in [address] [phone] Jorge Mcgraw M.D. [address] [place] [address] Feroz Miguel, P.T. [address] [place] [address] [phone] Arthroplasty Total Knee Replacement Status Post Left [...] relatives? 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 Plan for next session: Time [...] Clinical Support Department of Rehabilitation Services in [address] [phone] Jorge Mcgraw M.D. [address] [place] [phone] Feroz Migule P.T. [address] [place] [phone] documented as of this encounter Visit Diagnoses Diagnosis Arthroplasty Total Knee Replacement Status Post Left documented in this encounter Care Teams Plastic Shaper Relationship Specialty Start Date End Date Elsewhere, Pcp PCP - General Internal Medicine 06/08/23 documented as of this encounter
--- OUTSIDE RECORDS SUMMARY | 2024-11-08 09:12 | XMS_ITS | Encounter Summary ---
Author Organization [facility] Address [address] [place] [address] Care Team Providers Care Geoduck Diver Name Role Phone Dante Howe MD Primary Care Provider [phone] Reason for Visit * Reason Comments Med Refill Encounter Details Date Type Department Care Team (Late st Contact Info) Description 03/10/2023 Refill [place] [address] [place] [address] Tabitha López MD Borderline hyperlipidemia Social History [...] hyperlipidemia documented in this encounter Care Teams Geoduck Diver Relationship Specialty Start Date End Date Dante Howe MD [address] [facility] [address] [place] [address] PCP - General 05/08/23 documented as of this encounter
--- OUTSIDE RECORDS SUMMARY | 2024-11-08 09:12 | XMS_ITS | Encounter Summary ---
Author Organization [facility] er Address [address] [place] [address] Care Team Providers Care Lehr Attendant Name Role Phone Dante Howe MD Primary Care Provider [phone] Reason for Visit * Reason Comments Med Refill Encounter Details Date Type Department Care Team (Late st Contact Info) Description 04/28/2019 Refill [place] [address] [place] [address] Tabitha López MD Gastroesophageal reflux disease, esophagitis [...] specified documented in this encounter Care Teams Lehr Attendant Relationship Specialty Start Date End Date Dante Howe MD [address] [facility] [address] [place] [address] PCP - General 05/08/23 documented as of this encounter
--- OUTSIDE RECORDS SUMMARY | 2024-11-08 09:12 | XMS_ITS | Encounter Summary ---
Author Organization [facility] Address [address] [place] [address] Care Team Providers Care Installer Interior Assemblies Name Role Phone Elsewhere, Pcp Primary Care Provider Unavailabl e Reason for Visit * Physical Therapy (Routine) - Authorized Specialty Diagnoses / Procedures Referred By Mignon aldrich Referred To Contact Diagnoses Arthroplasty Total Knee Replacement Status Post Left Procedures PT Ongoing treatment Jorge Mcgraw M.D. [address] [place] [address] Phone: tel: fax: [facility] Region Referral ID Status Reason Start Date Expiration Date V isits Requested Visits Authorized [id number] Authorized 10/01/2024 07/20/2025 20 20 Encounter Details Date Type Department Care Team (Latest Contact Info) Description 10/08/2024 2:00 PM CDT Clinical Support Department of Rehabilitation Services in [address] [phone] Jorge Mcgraw M.D. [address] [place] [address] Feroz Miguel, P.T. [address] [place] [address] [phone] Arthroplasty Total Knee Replacement Status Post Left [...] relatives? 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 [address] [place] [phone] Feroz Miguel PAjith [address] [place] [address] [phone] documented as of this encounter Visit Diagnoses Diagnosis Arthroplasty Total Knee Replacement Status Post Left documented in this encounter Care Teams Installer Interior Assemblies Relationship Specialty Start Date End Date Elsewhere, Pcp PCP - General Internal Medicine 06/08/23 documented as of this encounter
--- OUTSIDE RECORDS SUMMARY | 2024-11-08 09:12 | XMS_ITS | Encounter Summary ---
Author Organization [facility] Address [address] [place] [address] Care Team Providers Care Basketball Coach Name Role Phone Elsewhere, Pcp Primary Care Provider Unavailabl e Reason for Visit * Physical Therapy (Routine) - Authorized Specialty Diagnoses / Procedures Referred By Mignon aldrich Referred To Contact Diagnoses Arthroplasty Total Knee Replacement Status Post Left Procedures PT Ongoing treatment Jorge Mcgraw M.D. [address] [place] [address] Phone: tel: fax: [facility] Region Referral ID Status Reason Start Date Expiration Date V isits Requested Visits Authorized [id number] Authorized 10/01/2024 07/20/2025 20 20 Encounter Details Date Type Department Care Team (Latest Contact Info) Description 10/13/2024 2:00 PM CDT Clinical Support Department of Rehabilitation Services in [address] [phone] Jorge Mcgraw M.D. [address] [place] [address] Feroz Miguel, P.T. 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 [address] [place] [phone] Feroz Miguel PAjith [address] [place] [phone] documented as of this encounter Visit Diagnoses Diagnosis Arthroplasty Total Knee Replacement Status Post Left documented in this encounter Care Teams Basketball Coach Relationship Specialty Start Date End Date Elsewhere, Pcp PCP - General Internal Medicine 06/08/23 documented as of this encounter
--- OUTSIDE RECORDS SUMMARY | 2024-11-08 09:12 | XMS_ITS | Encounter Summary ---
Author Organization [facility] Address [address] [place] [address] Care Team Providers Care Clothespin Machine Operator Name Role Phone Elsewhere, Pcp Primary Care Provider Unavailabl e Reason for Visit * Physical Therapy (Routine) - Authorized Specialty Diagnoses / Procedures Referred By Mignon t Referred To Contact Diagnoses Arthroplasty Total Knee Replacement Status Post Left Procedures PT Ongoing treatment Jorge Mcgraw M.D. [address] [place] [address] Phone: tel: fax: [facility] Region Referral ID Status Reason Start Date Expiration Date V isits Requested Visits Authorized [id number] Authorized 10/01/2024 07/20/2025 20 20 Encounter Details Date Type Department Care Team (Latest Contact Info) Description 10/11/2024 11:15 AM CDT Clinical Support Department of Rehabilitation Services in [address] [phone] Jorge Mcgraw M.D. [address] [place] [address] Feroz Miguel, P.T. [address] [place] [phone] Arthroplasty Total Knee Replacement Status Post Left [...] relatives? 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 - 10/11/2024 11:15 AM CDT Physical Therapy Outpatient Treatment Note SUBJECTIVE Patient's Name: Luis M Naegl Referring Provider: Jorge Mcgraw M.D. Visit Diagnosis: 1. Arthroplasty Total Knee Replacement Status Post Left Payor: MEDICA / Plan: MEDICA CARETYPE CHOICEPASSPORT PID [id number] / Product Type: PPO / No data [...] Clinical Support Department of Rehabilitation Services in [address] [phone] Jorge Mcgraw M.D. [address] [place] [phone] Feroz Miguel PAjith [address] [place] [phone] documented as of this encounter Visit Diagnoses Diagnosis Arthroplasty Total Knee Replacement Status Post Left documented in this encounter Care Teams Clothespin Machine Operator Relationship Specialty Start Date End Date Elsewhere, Pcp PCP - General Internal Medicine 06/08/23 documented as of this encounter
--- OUTSIDE RECORDS SUMMARY | 2024-11-08 09:12 | XMS_ITS | Clinical Summary ---
Author Organization [facility] [employer] [facility] Address [address] [place] [address] Care Team Providers Care Food And Beverage Assistant Name Role Phone Chelsea Hdz NP Primary [...] Department Care Team Description 08/12/2024 8:30 AM MATERIAL CONTROL MANAGER Ancillary Procedure [facility] [address] [facility] [address] [place] [address] 08/12/2024 Travel from Last 3 Months Social History Tobacco Use Types Packs/Day Years Used Date Smoking Tobacco: Never Smokeless Tobacco: Former Quit: 06/18/2008 Tobacco Cessation:Counseling Given: Yes Alcohol Use Standard Drinks/Week Comments Not Asked 0 (1 standard drink = 0.6 oz pur e alcohol) Sex and Gender Information Value Date Recorded Sex Assigned at Not on file Legal Sex Male 8:13 AM MATERIAL CONTROL MANAGER Gender Identity Not on file Sexual Orientation Not on file Obstetrics History Last Filed Vital Signs Vital Sign Reading Time Taken Comments Blood Pressure 151/92 02/06/2022 12:59 PM CDT Pulse 69 02/06/2022 12:59 PM CDT Temperature 36.6 C (97.9 F) 05/12/2019 9:41 AM CDT Respiratory Rate 18 09/24/2011 3:00 PM MATERIAL CONTROL MANAGER Oxygen Saturation 94% 02/06/2022 12:59 PM CDT [...] WO SINGLE READ Routine 08/12/2024 8:39 AM MATERIAL CONTROL MANAGER Screening for cardiovascular condition from Last 3 Months Results * CT CARDIAC CALCIUM SCORE ONLY WO SINGLE READ (08/12/2024 8:39 AM MATERIAL CONTROL MANAGER) Anatomical Region Laterality Modality Computed Tomogra phy 08/12/2024 9:47 AM MATERIAL CONTROL MANAGER Narrative 08/12/2024 9:47 AM MATERIAL CONTROL MANAGER For Patients: As a result of the [...] 3 Months Insurance MEDICA CHOICE Care Teams Food And Beverage Assistant Relationship Specialty Start Date End Date Chelsea Hdz NP [address] [place] [address] PCP - General Emergency Medicine 03/31/19
--- OUTSIDE RECORDS SUMMARY | 2024-11-08 09:12 | XMS_ITS | Encounter Summary ---
Author Organization [facility] Address [address] [place] [address] Care Team Providers Care Software Engineer Name Role Phone Elsewhere, Pcp Primary Care Provider Unavailabl e Reason for Visit * Physical Therapy (Routine) - Authorized Specialty Diagnoses / Procedures Referred By Mignon t Referred To Contact Diagnoses Arthroplasty Total Knee Replacement Status Post Left Procedures PT Ongoing treatment Jorge Mcgraw M.D. [address] [place] [address] Phone: tel: fax: [facility] Region Referral ID Status Reason Start Date Expiration Date V isits Requested Visits Authorized [id number] Authorized 10/01/2024 07/20/2025 20 20 Encounter Details Date Type Department Care Team (Latest Contact Info) Description 11/05/2024 9:45 AM CDT Clinical Support Department of Rehabilitation Services in [address] [phone] Jorge Mcgraw M.D. [address] [place] [phone] Feroz Miguel, P.T. [address] [place] [address] [phone] Arthroplasty Total Knee Replacement Status Post Left [...] relatives? Three times a week 03/21/2020 Attends [employer] Services Not on file 03/21 Active Member [...] Answer Date Recorded PHQ-2 Score 0 08/07/2022 [facility] of Occupat ional Health - [...] file Legal Sex Male 2:14 AM MANAGER REVIEW Gender Identity Male 03/10/2020 8:09 AM CDT [...] MEDICA / Plan: MEDICA CARETYPE CHOICEPASSPORT PID [id number] / Product Type: PPO / No data [...] Clinical Support Department of Rehabilitation Services in [address] [phone] Jorge Mcgraw M.D. [address] [place] [phone] Feroz Miguel P.T. [address] [place] [phone] documented as of this encounter Visit Diagnoses Diagnosis Arthroplasty Total Knee Replacement Status Post Left documented in this encounter Care Teams Software Engineer Relationship Specialty Start Date End Date Elsewhere, Pcp PCP - General Internal Medicine 06/08/23 documented as of this encounter
--- OUTSIDE RECORDS SUMMARY | 2024-11-08 09:12 | XMS_ITS | Encounter Summary ---
Author Organization [facility] Address [address] [place] [address] Care Team Providers Care Checkering Machine Adjuster Name Role Phone Elsewhere, Pcp Primary Care Provider Unavailabl e Reason for Visit * Physical Therapy (Routine) - Authorized Specialty Diagnoses / Procedures Referred By Mignon aldrich Referred To Contact Diagnoses Arthroplasty Total Knee Replacement Status Post Left Procedures PT Ongoing treatment Jorge Mcgraw M.D. [address] [place] [address] Phone: tel: fax: [facility] Region Referral ID Status Reason Start Date Expiration Date V isits Requested Visits Authorized [id number] Authorized 10/01/2024 07/20/2025 20 20 Encounter Details Date Type Department Care Team (Latest Contact Info) Description 10/15/2024 2:00 PM CDT Clinical Support Department of Rehabilitation Services in [address] [phone] Jorge Mcgraw M.D. [address] [place] [phone] Feroz Miguel, P.T. [address] [place] [address] [phone] Arthroplasty Total Knee Replacement Status Post Left [...] Date Recorded PHQ-2 Score 0 08/07/2022 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 [address] [place] [phone] Feroz Miguel PAjith [address] [place] [phone] documented as of this encounter Visit Diagnoses Diagnosis Arthroplasty Total Knee Replacement Status Post Left documented in this encounter Care Teams Checkering Machine Adjuster Relationship Specialty Start Date End Date Elsewhere, Pcp PCP - General Internal Medicine 06/08/23 documented as of this encounter
--- OUTSIDE RECORDS SUMMARY | 2024-11-08 09:12 | XMS_ITS | Encounter Summary ---
Author Organization [facility] Address [address] [place] [address] Care Team Providers Care Professional Employer Consultant Name Role Phone Elsewhere, Pcp Primary Care Provider Unavailabl e Reason for Visit * Physical Therapy (Routine) - Authorized Specialty Diagnoses / Procedures Referred By Mignon aldrich Referred To Contact Diagnoses Arthroplasty Total Knee Replacement Status Post Left Procedures PT Ongoing treatment Jorge Mcgraw M.D. [address] [place] [address] Phone: tel: fax: [facility] Region Referral ID Status Reason Start Date Expiration Date V isits Requested Visits Authorized [id number] Authorized 10/01/2024 07/20/2025 20 20 Encounter Details Date Type Department Care Team (Latest Contact Info) Description 10/04/2024 1:00 PM CDT Clinical Support Department of Rehabilitation Services in [address] [phone] Jorge Mcgraw M.D. [address] [place] [phone] Feroz Miguel, P.T. 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 [address] [place] [phone] Feroz Miguel PAjith [address] [place] [address] [phone] documented as of this encounter Visit Diagnoses Diagnosis Arthroplasty Total Knee Replacement Status Post Left documented in this encounter Care Teams Professional Employer Consultant Relationship Specialty Start Date End Date Elsewhere, Pcp PCP - General Internal Medicine 06/08/23 documented as of this encounter
--- OUTSIDE RECORDS SUMMARY | 2024-11-08 09:12 | XMS_ITS | Encounter Summary ---
Author Organization [facility] Address [address] [place] [address] Care Team Providers Care Long Distance Billing Operator Name Role Phone Elsewhere, Pcp Primary Care Provider Unavailabl e Reason for Visit * Physical Therapy (Routine) - Authorized Specialty Diagnoses / Procedures Referred By Mignon aldrich Referred To Contact Diagnoses Arthroplasty Total Knee Replacement Status Post Left Procedures PT Ongoing treatment Jorge Mcgraw M.D. [address] [place] [phone] Phone: tel: fax: [facility] Region Referral ID Status Reason Start Date Expiration Date V isits Requested Visits Authorized [id number] Authorized 10/01/2024 07/20/2025 20 20 Encounter Details Date Type Department Care Team (Latest Contact Info) Description 10/20/2024 2:00 PM CDT Clinical Support Department of Rehabilitation Services in [address] [phone] Jorge Mcgraw M.D. [address] [place] [phone] Feroz Miguel, P.T. 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 [address] [place] [phone] Feroz Miguel P.T. [address] [place] [phone] documented as of this encounter Visit Diagnoses Diagnosis Arthroplasty Total Knee Replacement Status Post Left documented in this encounter Care Teams Long Distance Billing Operator Relationship Specialty Start Date End Date Elsewhere, Pcp PCP - General Internal Medicine 06/08/23 documented as of this encounter
--- OUTSIDE RECORDS SUMMARY | 2024-11-08 09:12 | XMS_ITS | Clinical Summary ---
Author Organization [facility] Address [address] [place] [address] Care Team Providers Care Scalp Specialist Name Role Phone Elsewhere, Pcp Primary Care Provider Unavailabl e Source Comments Patient records contain information from all sites at [facility]. For routine questions regarding patient records, call [phone] during business hours, M-F 8:00 AM - 5:00 PM Central Time. Record requests for emergency care only can be directed to [phone] at any time.[facility] Allergies Active Allergy Reactions Criticality Noted Date [...] Clinical Support Department of Rehabilitation Services in [address] [place] [phone] Jorge Mcgraw M.D. Beissel, Curtis J, P.T. Arthroplasty Total Knee Replacement Status Post Left 11/02/2024 8:45 AM CDT Clinical Support Department of Rehabilitation Services in [address] [phone] Jorge Mcgraw M.D. Beissel, Curtis J P.T. Arthroplasty Total Knee Replacement Status Post Left 10/29/2024 1:45 PM CDT Clinical Support Department of Rehabilitation Services in [address] [place] [address] Jorge Mcgraw M.D. Beissel, Curtis J, P.T. Arthroplasty Total Knee Replacement Status Post Left 10/27/2024 11:00 AM CDT Clinical Support Department of Rehabilitation Services in [address] [phone] Jorge Mcgraw M.D. Beissel, Curtis J, P.T. Arthroplasty Total Knee Replacement Status Post Left 10/25/2024 1:30 PM CDT Clinical Support Department of Rehabilitation Services in [address] [phone] Jorge Mcgraw M.D. Beissel, Curtis J, P.T. Arthroplasty Total Knee Replacement Status Post Left 10/22/2024 1:15 PM CDT Clinical Support Department of Rehabilitation Services in [address] [phone] Jorge Mcgraw M.D. Beissel, Curtis J, P.T. Arthroplasty Total Knee Replacement Status Post Left 10/20/2024 2:00 PM CDT Clinical Support Department of Rehabilitation Services in [address] [phone] Jorge Mcgraw M.D. Beissel, Curtis J, P.T. Arthroplasty Total Knee Replacement Status Post Left 10/18/2024 2:30 PM CDT Clinical Support Department of Rehabilitation Services in [place] [place] [address] Jorge Mcgraw M.D. Beissel, Curtis J, P.T. Arthroplasty Total Knee Replacement Status Post Left 10/15/2024 2:00 PM CDT Clinical Support Department of Rehabilitation Services in [address] [place] [address] Jorge Mcgraw M.D. Beissel, Curtis J, P.T. Arthroplasty Total Knee Replacement Status Post Left 10/13/2024 2:00 PM CDT Clinical Support Department of Rehabilitation Services in [address] [place] [address] Jorge Mcgraw M.D. Beissel, Curtis J, P.T. Arthroplasty Total Knee Replacement Status Post Left 10/11/2024 11:15 AM CDT Clinical Support Department of Rehabilitation Services in [address] [place] [address] Jorge Mcgraw M.D. Beissel, Curtis J, P.T. Arthroplasty Total Knee Replacement Status Post Left 10/08/2024 2:00 PM CDT Clinical Support Department of Rehabilitation Services in [address] [place] [address] Jorge Mcgraw M.D. Beissel, Curtis J, P.T. Arthroplasty Total Knee Replacement Status Post Left 10/06/2024 10:30 AM CDT Clinical Support Department of Rehabilitation Services in [address] [place] [address] Jorge Mcgraw M.D. Beissel, Curtis J, P.T. Arthroplasty Total Knee Replacement Status Post Left 10/04/2024 1:00 PM CDT Clinical Support Department of Rehabilitation Services in [address] [place] [address] Jorge Mcgraw M.D. Beissel Feroz J, P.T. Arthroplasty Total Knee Replacement Status Post Left 10/01/2024 2:00 PM CDT Comprehensive Visit Department of Rehabilitation Services in [address] [phone] Jorge Mcgraw M.D. Beissel, Curtis J P.T. 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 Gender Identity Male 03/10/2020 8:09 AM CDT Sexual Orientation Straight 03/10/2020 8: 09 AM CDT Last Filed Vital Signs Vital Sign Reading Time Taken Comments Blood Pressure 130/92 06/08/2023 4:15 PM CORE MANAGER Pulse 78 06/08/2023 4:15 PM CORE MANAGER Temperature 36.2 C (97.2 F) 06/08/2023 2:01 PM CORE MANAGER Respiratory Rate 16 06/08/2023 4:15 PM CORE MANAGER Oxygen Saturation 96% 06/08/2023 4:15 PM CORE MANAGER Inhaled Oxygen Concentration - - Weight 88.9 kg (195 lb 15.8 oz) 06/08/2023 2:01 PM CORE MANAGER Height 175.3 cm (5' 9) 03/03/2022 11:2 2 AM CDT Body Mass Index 28.94 03/03/2022 11:22 AM CDT Plan of Treatment Upcoming Encounters Date Type Department Care Team (Late st Contact Info) Description 11/09/2024 10:30 AM CDT Clinical Support Department of Rehabilitation Services in [address] [phone] Jorge Mcgraw M.D. [address] [place] [phone] Feroz Miguel, P.T. [address] [place] [address] [place] [address] Health Maintenance Due Date Last Done Comments [...] this topic Medical Devices Implanted Type Area Flavor Tank Tender Device Identifier Shelf Expiration Date Model / Serial / Lot Hardware E.G. Pins/Screws/Ro ds-05/12/2019 Implanted:04/21 (Quantity not on file) Hardware e.g. pins/screws/r ods Foot Description:Rt toe- pin Procedures Procedure Name Priority Date/Time Associated Diagnosis Comments COMPREHENSIVE METABOLIC PANEL, S/P STAT 06/08/2023 2:18 PM CORE MANAGER COLONOSCOPY Routine 07/08/2019 10:08 AM CORE MANAGER Screening Cancer Colon LIPID PANEL, S Routine 07/07/2019 12:30 PM CORE MANAGER Multisystem Laboratory Testing Adult HCV AB SCRN W/REFLEX TO HCV PCR, S Routine 10/15/2017 8:32 AM CDT HIV-1/-2 AG AND AB SCREEN Routine 10/15/2017 8:32 AM CDT from Last 3 Months or Most Recently Relevant to Health Maintenance Results * Comprehensive Metabolic Panel (06/08/2023 2:18 PM CORE MANAGER) Pathologist [facility] [place] Potassium, P 4.5 3.6 - 5.2 mmol/L 06/08/2023 2:40 PM CORE MANAGER CNFL Sodium, P 137 135 - 145 mmol/L 06/08/2023 2:40 PM CORE MANAGER CNFL Chloride, P 103 98 - 107 mmol/L 06/08/2023 2:40 PM CORE MANAGER CNFL Bicarbonate, P 24 22 - 29 mmol/L 06/08/2023 2:40 PM CORE MANAGER CNFL Anion Gap, P 10 7 - 15 06/08/2023 2:40 PM CORE MANAGER CNFL BUN (Blood Urea Nitrogen), P 18 8 - 24 mg/dL 06/08/2023 2:40 PM CORE MANAGER CNFL Creatinine 0.92 0.74 - 1.35 mg/dL 06/08/2023 2:40 PM CORE MANAGER CNFL Estimated GFR (eGFR) >90 >=60 mL/min/BS A 06/08/2023 2:40 PM CORE MANAGER CNFL Comment: Estimated GFR calculated using the 2020 CKD_EPI creatinine equation. Calcium, Total, P 9.3 8.8 - 10.2 mg/dL 06/08/2023 2:40 PM CORE MANAGER CNFL Glucose, P 101 70 - 140 mg/dL 06/08/2023 2:40 PM CORE MANAGER CNFL Protein, Total, P 6.6 6.3 - 7.9 g/dL 06/08/2023 2:40 PM CORE MANAGER CNFL Albumin, P 4.2 3.5 - 5.0 g/dL 06/08/2023 2:40 PM CORE MANAGER CNFL Aspartate Aminotransferase (AST), P 20 8 - 48 U/L 06/08/2023 2:40 PM CORE MANAGER CNFL Alkaline Phosphatase, P 86 40 - 129 U/L 06/08/2023 2:40 PM CORE MANAGER CNFL Alanine Aminotransferase (ALT), P 17 7 - 55 U/L 06/08/2023 2:40 PM CORE MANAGER CNFL Bilirubin, Total, P 0.8 0.0 - 1.2 mg/dL 06/08/2023 2:40 PM CORE MANAGER CNFL Blood (Blood, Venous) 06/08/2023 2:18 PM CORE MANAGER 06/08/2023 2:20 PM CORE MANAGER us Jace Fagan P.A.-C., P.A. LAB BLOOD ADD-ON F inal Result [facility] [address] [place] [address], [facility] CNFL [facility] in [address] [address] * Colonoscopy (07/08/2019 10:08 AM CORE MANAGER) 07/08/2019 10:0 8 AM CORE MANAGER Impressions [facility] - 07/08/2019 11:11 AM CORE MANAGER Post-op Diagnoses: - Diverticulosis in the sigmoid colon. - The examination was otherwise normal. - No specimens collected. Narrative [facility] - 07/08/2019 11:11 AM CORE MANAGER Gonda 9 GI GI Patient Name: Luis [...] bowel preparation was evaluated using the BBPS (Hawi Bowel Preparation Scale). The total BBPS score [...] ORDERA BLES Final Result Performing Organization Address City/State/[facility] Co ma Phone Number [facility] NA * Lipid Panel (07/07/2019 12:30 PM CORE MANAGER) Cholesterol, Total 131 mg/dL 2018 2:05 PM CORE MANAGER DTL Comment: ----REFERENCE VALUE---- Desirable: < 200 Borderline high: 200 - 239 High: > or = 240 Triglycerides 77 mg/dL 07/07/2019 2:05 PM CORE MANAGER DTL Comment: ----REFERENCE VALUE---- Normal: <150 Borderline high: 150-199 High: 200-499 Very high: > or =500 Cholesterol, HDL, S 44 >=40 mg/dL 07/07/2019 2:05 PM CORE MANAGER DTL Calculated LDL 72 mg/dL 07/07/2019 2:05 PM CORE MANAGER DTL Comment: ----REFERENCE VALUE---- Desirable: <100 Above Desirable: 100-129 Borderline high: 130-159 High: 160-189 Very high: > or =190 Cholesterol, Non-HDL, Calculated 87 mg/dL 07/07/2019 2:05 PM CORE MANAGER DTL Comment: ----REFERENCE VALUE---- Desirable: <130 Above Desirable: 130-159 Borderline high: 160-189 High: 190-219 Very high: > or =220 Blood (Blood, Venous) 07/07/2019 12:30 PM CORE MANAGER 07/07/2019 12:55 PM CORE MANAGER Iwona Mendoza M.D., M.H.A. LAB BLOOD ADD-ON Fi nal Result Performing Organization Address [facility]/ZIP Co de Phone Number [facility] [place] [address] DTL Formerly named [facility] [address] [place] [address] * HIV-1/-2 Ag and Ab Screen (10/15/2017 [...] O RDERABLES Final Result Performing Organization Address [facility] Co de Phone Number [facility] [place] [address] * HCV Ab Scrn w/Reflex to HCV PCR, S (10/15/2017 8:32 AM CDT) HCV Ab Screen, S Negative Negative [facility] [place] Comment:[id number] rat io is <1.00. 10/15/2017 8:32 AM CDT 10/15/2017 8:32 AM CDT Mike Arenas M.D. LAB MICROBIOLOGY - BLOOD O RDERABLES Final Result Performing Organization Address City/[facility]/ZIP Co de Phone Number [facility] [place] [address] [place], [place] [address] from Last 3 Months or Most Recently Relevant to Health Maintenance Insurance MEDICA Care Teams Scalp Specialist Relationship Specialty Start Date End Date Elsewhere, Pcp PCP - General Internal Medicine 06/08/23
--- OUTSIDE RECORDS SUMMARY | 2024-11-08 09:12 | XMS_ITS | Encounter Summary ---
Author Organization [facility] Address [address] [place] [address] Care Team Prov[address] Care Court Magistrate Name Role Phone Elsewhere, Pcp Primary Care Provider Unavailabl e Reason for Visit * Physical Therapy (Routine) - Authorized Specialty Diagnoses / Procedures Referred By Mignon aldrich Referred To Contact Diagnoses Arthroplasty Total Knee Replacement Status Post Left Procedures PT Ongoing treatment Jorge Mcgraw M.D. [address] [place] [address] Phone: tel: fax: [facility] Region Referral ID Status Reason Start Date Expiration Date V isits Requested Visits Authorized [id number] Authorized 10/01/2024 07/20/2025 20 20 Encounter Details Date Type Department Care Team (Latest Contact Info) Description 10/06/2024 10:30 AM CDT Clinical Support Department of Rehabilitation Services in [address] [phone] Jorge Mcgraw M.D. [address] [place] [address] Feroz Miguel, P.T. 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 - 10/06/2024 10:30 AM CDT Physical Therapy Outpatient Treatment Note SUBJECTIVE Patient's Name: uLis M Nagel Referring Provider: Jorge Mcgraw M.D. Visit Diagnosis: 1. Arthroplasty Total Knee Replacement Status Post Left Payor: MEDICA / Plan: MEDICA [employer] CHOICEPASSPORT PID [id number] / Product Type: PPO / No data recorded Epic Visit Count: 3 Patient comments: Comes into therapy today after having been seen by his strategic planning specialist. They did do a CT/ultrasound to [...] Support Department of Rehabilitation Services in [address] [phone] Jorge Mcgraw M.D. [address] [place] [phone] Feroz Miguel P.T. [address] [place] [phone] documented as of this encounter Visit Diagnoses Diagnosis Arthroplasty Total Knee Replacement Status Post Left documented in this encounter Care Teams Court Magistrate Relationship Specialty Start Date End Date Elsewhere, Pcp PCP - General Internal Medicine 06/08/23 documented as of this encounter
== END 2024-11-08 09:54 | disposition home or self-care (01) ==
PROVIDERS: Emergency Provider Family Medicine; PCP Nurse Practitioner Family
DX: G89.18 Other acute postprocedural pain (principal)
CPT/HCPCS: 93971; 99283